=== PATIENT | male | born 1940 | race Caucasian/White ===

== ENCOUNTER → 2017-12-05 10:44 | Outpatient (CLI) | payer OTHER, SELFPAY ==
[2017-12-05 11:59] LABS: Alanine Aminotransferase 32 IU/L (21-72); Albumin 4.1 g/dL (3.5-5.0); Albumin Globulin Ratio 1.7 (1.0-2.8); Alkaline Phosphatase 61 U/L (38-126); Aspartate Aminotransferase 27 IU/L (17-59); Bilirubin Total 0.9 mg/dL (0.2-1.3); Bilirubin Unconjugated 0.8 mg/dL (0.0-1.1); Blood Urea Nitrogen 15 mg/dL (9-20); Calcium 9.7 mg/dL (8.4-10.2); Carbon Dioxide 29 mmol/L (22-32); Chloride 104 mmol/L (98-107); Estimated Glomerular Filt Rate > 60.0 mL/min (>60); Globulin 2.4 g/dL (1.7-4.1); Glucose 120 mg/dL (80-110); HEMOLYSIS < 15 (0-50); Potassium 4.8 mmol/L (3.4-5.1); Sodium 142 mmol/L (137-145); Total Protein 6.5 g/dL (6.3-8.2)
[2017-12-05 12:29] LABS: Thyroid Stimulating Hormone 4.06 uIU/mL (0.47-4.68)
== END ==
PROVIDERS: PCP Internal Medicine; Visit Provider Internal Medicine Cardiovascular Disease
DX: I48.1 Persistent atrial fibrillation (principal)
CPT/HCPCS: 36415; 80053; 80076; 84443

== ENCOUNTER → 2017-12-23 14:31 | Outpatient (CLI) | payer OTHER, SELFPAY ==
[2017-12-23 17:11] LABS: Urine Amphetamines Positive (Negative); Urine Barbiturates Negative (Negative); Urine Benzodiazepines Negative (Negative); Urine Cocaine Negative (Negative); Urine MDMA Negative (Negative); Urine Methadone Negative (Negative); Urine Methamphetamines Negative (Negative); Urine Morphine/Opi cutoff 2000 Negative (Negative); Urine Oxycodone Negative (Negative); Urine Phencyclidine Negative (Negative); Urine Tetrahydrocannabinol Negative (Negative); Urine Tricyclic Antidepressant Negative (Negative)
== END ==
PROVIDERS: PCP Internal Medicine; Visit Provider Psychiatry & Neurology Psychiatry
DX: F32.9 Major depressive disorder, single episode, unspecified (principal); F90.9 Attention-deficit hyperactivity disorder, unspecified type
CPT/HCPCS: 80305

== ENCOUNTER 2018-03-12 08:30 | Outpatient (RCR) | payer OTHER, SELFPAY ==
[2018-02-18 14:53] VITALS: BP 120/70; BP 126/72; BMI 32.1
[2018-03-19 11:47] VITALS: BP 132/64
== END 2018-03-14 11:58 ==
LOC: CAR 08:30
PROVIDERS: PCP Internal Medicine; Visit Provider Internal Medicine
DX: I50.22 Chronic systolic (congestive) heart failure (principal); I48.91 Unspecified atrial fibrillation
CPT/HCPCS: 93798

== ENCOUNTER → 2018-05-21 14:08 | Outpatient (CLI) | payer OTHER, SELFPAY ==
[2018-05-21 15:21] LABS: Alanine Aminotransferase 48 IU/L (21-72); Albumin 4.1 g/dL (3.5-5.0); Alkaline Phosphatase 64 U/L (38-126); Aspartate Aminotransferase 34 IU/L (17-59); BUN Creatinine Ratio 14.5 (6-22); Bilirubin Total 0.5 mg/dL (0.2-1.3); Blood Urea Nitrogen 16 mg/dL (9-20); Calcium 9.2 mg/dL (8.4-10.2); Carbon Dioxide 28 mmol/L (22-32); Chloride 104 mmol/L (98-107); Estimated Glomerular Filt Rate > 60.0 mL/min (>60); Globulin 2.1 g/dL (1.7-4.1); Glucose 113 mg/dL (80-110); HEMOLYSIS < 15 (0-50); Magnesium 1.8 mg/dL (1.6-2.3); Potassium 4.8 mmol/L (3.4-5.1); Sodium 144 mmol/L (137-145); Total Protein 6.2 g/dL (6.3-8.2)
[2018-05-26 08:55] LABS: Lipoprofile NMR SEE SEPERATE REPORT
== END ==
PROVIDERS: Family Provider Internal Medicine; PCP Internal Medicine; Visit Provider Specialist
DX: I42.9 Cardiomyopathy, unspecified (principal); I48.1 Persistent atrial fibrillation; E78.2 Mixed hyperlipidemia
CPT/HCPCS: 36415; 80053; 83704; 83735

== ENCOUNTER → 2018-08-25 14:34 | Outpatient (CLI) | payer OTHER, SELFPAY ==
[2018-08-25 16:33] LABS: Vitamin B12 419 pg/mL (239-931)
[2018-08-25 16:53] LABS: Thyroid Stimulating Hormone 5.88 uIU/mL (0.47-4.68)
== END ==
PROVIDERS: PCP Internal Medicine; Visit Provider Internal Medicine
DX: E03.9 Hypothyroidism, unspecified (principal); E53.8 Deficiency of other specified B group vitamins
CPT/HCPCS: 36415; 82607; 84443

== ENCOUNTER → 2018-09-26 15:31 | Outpatient (CLI) | payer OTHER, SELFPAY ==
[2018-09-26 18:15] LABS: Alanine Aminotransferase 50 IU/L (21-72); Albumin Globulin Ratio 1.8 (1.0-2.8); Alkaline Phosphatase 56 U/L (38-126); Aspartate Aminotransferase 39 IU/L (17-59); Bilirubin Total 0.7 mg/dL (0.2-1.3); Bilirubin Unconjugated 0.5 mg/dL (0.0-1.1); Blood Urea Nitrogen 18 mg/dL (9-20); Calcium 8.7 mg/dL (8.4-10.2); Carbon Dioxide 25 mmol/L (22-32); Chloride 106 mmol/L (98-107); Estimated Glomerular Filt Rate > 60.0 mL/min (>60); Globulin 2.2 g/dL (1.7-4.1); Glucose 89 mg/dL (80-110); HEMOLYSIS < 15 (0-50); Potassium 4.6 mmol/L (3.4-5.1); Sodium 140 mmol/L (137-145); Total Protein 6.2 g/dL (6.3-8.2)
[2018-09-26 18:47] LABS: Thyroid Stimulating Hormone 5.33 uIU/mL (0.47-4.68)
== END ==
PROVIDERS: PCP Internal Medicine; Visit Provider Physician Assistant
DX: I48.1 Persistent atrial fibrillation (principal)
CPT/HCPCS: 36415; 80053; 80076; 84443

== ENCOUNTER → 2018-10-02 09:13 | Outpatient (CLI) | payer OTHER, SELFPAY ==
--- NOTE | 2018-10-02 | DI.ECHO.S_ITS ---
[facility] +---------+ [facility] +---------+ : : [address] : : : [place], [place] : : : : [id number] : : : : Phone: [phone]+ Echocardiogram Report + + :Name: ROSEANN PATTERSON Study Date: 10/02/2018 Height: 71 in : :[facility] Exam Location: [facility] Weight: 240 lb : : Gender: Male BSA: 2.3 m2 : :: 1940 Age: 77 yrs BP: 115/58 mmHg: :Reason For Study: CM : : Performed By: Sergio Golden : :Referring: NILDA HERRERA : + + Interpretation Summary Left ventricular systolic function is moderate to severely reduced with the ejection fraction estimated to be 30-35% with moderate global hypokinesis that appears somewhat worse apically with severe hypokinesis, which is more prominent compared to the previous study but overall systolic function appears quite similar. There are no other obvious focal wall motion abnormalities. The left ventricle is mild-moderately dilated and measures slightly larger compared to the previous study. Diastolic parameters suggest a pseudonormalization pattern, consistent with probable elevated filling pressures. The right ventricle is mildly dilated and right ventricular systolic function is normal and appears unchanged compared to the previous study. The right ventricular systolic pressure is estimated to be at least 26 mmHg based on an estimated right atrial pressure of 3 mm Hg, and is unchanged compared to the previous study. The left atrium is severely dilatedi but s unchanged compared to the previous study. The right atrium is mildly dilated and has significantly decreased in size since the prior echo exam. There is moderate mitral regurgitation that is slightly more prominent compared to the previous study. There is mild tricuspid regurgitation and mild aortic regurgitation that are unchanged compared to the previous study. The aortic root and ascending aorta are moderately enlarged and the aortic arch is mildly enlarged but all are unchanged compared to the previous study. Procedure: A two-dimensional transthoracic echocardiogram with color flow and Doppler was performed. The study quality was technically good. Comparison is made with the echocardiogram of 08/08/17. The patient has a paced rhythm. Left Ventricle: There is normal left ventricular wall thickness. The left ventricle is mild-moderately dilated. This is slightly larger compared to the previous study. Left ventricular systolic function is moderate to severely reduced. The ejection fraction is estimated to be 30-35%. There is moderate global hypokinesis of the left ventricle. But appears somewhat worse apically with her severe hypokinesis, which is more prominent compared to the previous study but overall systolic function appears quite similar. There are no other obvious focal wall motion abnormalities. Diastolic parameters suggest a pseudonormalization pattern, consistent with probable elevated filling pressures. Right Ventricle: The right ventricle is mildly dilated. There is a pacemaker lead in the right ventricle. This is new compared to the previous study. The right ventricular systolic function is normal. This is unchanged compared to the previous study. Atria: The left atrium is severely dilated. This is unchanged compared to the previous study. The right atrium is mildly dilated. The right atrium has significantly decreased in size since the prior echo exam. The interatrial septum is intact with no evidence for an atrial septal defect. Mitral Valve: The mitral valve leaflets appear normal. There is no evidence of stenosis, fluttering, or prolapse. There is moderate mitral regurgitation. This is slightly more prominent compared to the previous study. Aortic Valve: The aortic valve is trileaflet. The aortic valve is slightly calcified. The aortic valve opens well. There is mild aortic regurgitation. This is unchanged compared to the previous study. Tricuspid Valve: The tricuspid valve is normal in structure and function. There is mild tricuspid regurgitation. The right ventricular systolic pressure is estimated to be at least 26 mmHg based on an estimated right atrial pressure of 3 mm Hg. This is unchanged compared to the previous study. Pulmonic Valve: The pulmonic valve is normal in structure and function. There is trace pulmonic regurgitation. Great Vessels: The aortic root is moderately dilated. The ascending aorta is moderately enlarged. The aortic arch is mildly enlarged. This is unchanged compared to the previous study. The pulmonary artery is normal size. The IVC is of normal diameter and collapses greater than 50% with a sniff. This suggests a low right atrial pressure of 3 mm Hg. Pericardium/ Pleura There is no pericardial effusion. There is no pleural effusion. MMode/2D Measurements & Calculations LVIDd: 6.5 cm LVOT diam: 2.7 cm LVIDs: 5.1 cm Ao root diam: 4.6 cm FS: 22.2 % Aortic Jxn: 3.4 cm EPSS: 1.7 cm asc Aorta Diam: 4.1 cm IVSd: 0.99 cm Ao Arch Diam (Prox Trans): 3.2 cm LVPWd: 0.84 cm LV pleitez. diameter/BSA (cm/m^2): 2.9 LV sys. diameter/BSA (cm/m^2): 2.2 LA dimension: 4.5 cm RA long axis: 5.5 cm LA A2 area: 33.9 cm2 RA area: 24.0 cm2 LA A4 area: 24.9 cm2 RA vol: 88.3 ml LA length (vol): 5.9 cm RA : 38.7 ml/m2 LA vol: 120.7 ml IVC diam: 2.1 cm LA vol index: 53.0 ml/m2 RVD1 (basal): 4.9 cm RVD2 (mid): 4.8 cm Doppler Measurements & Calculations Ao V2 max: 102.1 cm/sec LVOT Max Hemanth: 49.2 cm/sec Ao V2 mean: 83.3 cm/sec LV V1 max P.97 mmHg Ao max P.2 mmHg LV V1 VTI: 13.8 cm Ao mean P.9 mmHg GARRICK(I,D): 2.9 cm2 Ao V2 VTI: 27.7 cm GARRICK(V,D): 2.8 cm2 sev ratio: 0.50 GARRICK indexed to BSA (cm^2/m^2): 1.3 AI P1/2t: 582.6 msec AI dec slope: 108.6 cm/sec2 MV E max hemanth: 59.1 cm/sec TR max hemanth: 238.8 cm/sec MV A max hemanth: 65.7 cm/sec TR max P.8 mmHg MV E/A: 0.90 PA V2 max: 64.5 cm/sec Med Peak E' Hemanth: 3.6 cm/sec PA V2 mean: 50.8 cm/sec E/E' med: 16.4 PA mean P.1 mmHg Lat Peak E' Hemanth: 4.3 cm/sec PA pr(Accel): 31.6 mmHg E/E' lat: 13.6 PA Accel Time: 0.10 sec E/e' average: 15.0 MV dec time: 0.21 sec SV(LVOT): 79.3 ml Reading Physician:ARIEL
== END ==
PROVIDERS: PCP Internal Medicine; Visit Provider Specialist
DX: I08.3 Combined rheumatic disorders of mitral, aortic and tricuspid valves (principal); I42.9 Cardiomyopathy, unspecified; I77.89 Other specified disorders of arteries and arterioles; Z95.0 Presence of cardiac pacemaker
CPT/HCPCS: 93306

== ENCOUNTER → 2019-03-13 14:44 | Outpatient (CLI) | payer OTHER, SELFPAY ==
[2019-03-13 16:12] LABS: TSH w/ Reflex to FT4 1.75 uIU/mL (0.47-4.68)
[2019-03-13 16:31] LABS: Vitamin B12 648 pg/mL (239-931)
== END ==
PROVIDERS: PCP Internal Medicine; Visit Provider Internal Medicine
DX: D51.0 Vitamin B12 deficiency anemia due to intrinsic factor deficiency (principal); E03.9 Hypothyroidism, unspecified
CPT/HCPCS: 36415; 82607; 84443

== ENCOUNTER → 2019-07-16 18:55 | Outpatient (ROUT) | payer MEDICARE, SELFPAY ==
[2019-07-16 19:23] LABS: Hematocrit 37.9 % (41-53); Hemoglobin 13.1 g/dL (13.5-17.5); Mean Corpuscular HGB Conc 34.6 % (30-36); Mean Corpuscular Hemoglobin 32.7 PG (26-34); Mean Corpuscular Volume 94.3 fL (80-100); Platelet Count 187 X10^3/uL (150-400); Red Blood Cell Count 4.01 X10^6/uL (4.5-5.9); Red Cell Distribution Width 14.2 % (11.6-14.8); White Blood Cell Count 4.7 X10^3/uL (4.5-11.0)
[2019-07-16 20:02] LABS: TSH w/ Reflex to FT4 0.59 uIU/mL (0.47-4.68)
[2019-07-16 20:22] LABS: Vitamin B12 537 pg/mL (239-931)
== END ==
PROVIDERS: PCP Internal Medicine; Visit Provider Internal Medicine
DX: R53.82 Chronic fatigue, unspecified (principal); D51.0 Vitamin B12 deficiency anemia due to intrinsic factor deficiency; E03.9 Hypothyroidism, unspecified
CPT/HCPCS: 82607; 84443; 85027

== ENCOUNTER → 2020-04-01 12:38 | Outpatient (CLI) | payer MEDICARE, SELFPAY ==
[2020-04-01 13:43] LABS: Add Manual Diff / Slide Review NO; Basophils Absolute Auto 0 /uL (0-100); Basophils Percent Auto 0.7 % (0-2); Eosinophils Absolute Auto 300 /uL (0-450); Eosinophils Percent Auto 6.6 % (2-4); Hematocrit 37.6 % (41-53); Hemoglobin 12.7 g/dL (13.5-17.5); Lymphocytes Absolute Auto 1200 /uL (1100-4500); Lymphocytes Percent Auto 27.7 % (25-40); Mean Corpuscular HGB Conc 33.8 % (30-36); Mean Corpuscular Hemoglobin 32.7 PG (26-34); Mean Corpuscular Volume 96.9 fL (80-100); Monocytes Absolute Auto 300 /uL (0-900); Monocytes Percent Auto 7.1 % (3-14); Neutrophils Absolute Auto 2500 /uL (1500-7000); Neutrophils Percent Auto 57.9 % (50-75); Platelet Count 188 X10^3/uL (150-400); Red Blood Cell Count 3.88 X10^6/uL (4.5-5.9); Red Cell Distribution Width 13.5 % (11.6-14.8); White Blood Cell Count 4.3 X10^3/uL (4.5-11.0)
[2020-04-01 14:14] LABS: Alanine Aminotransferase 53 IU/L (<50); Albumin 4.3 g/dL (3.5-5.0); Albumin Globulin Ratio 1.5 (1.0-2.8); Alkaline Phosphatase 65 U/L (38-126); Aspartate Aminotransferase 49 IU/L (17-59); Bilirubin Total 0.8 mg/dL (0.2-1.3); Blood Urea Nitrogen 15 mg/dL (9-20); Calcium 9.5 mg/dL (8.4-10.2); Carbon Dioxide 31 mmol/L (22-32); Chloride 106 mmol/L (98-107); Cholesterol 175 mg/dL (140-199); Estimated Glomerular Filt Rate > 60.0 mL/min (>60); Globulin 2.8 g/dL (1.7-4.1); Glucose 95 mg/dL (80-110); HDL Cholesterol 33 mg/dL (40-60); HEMOLYSIS < 15 (0-50); LDL Cholesterol Calculated 97 mg/dL (<100); Potassium 4.5 mmol/L (3.4-5.1); Sodium 141 mmol/L (137-145); Total Protein 7.1 g/dL (6.3-8.2); Triglycerides 226 mg/dL (35-150)
[2020-04-01 14:44] LABS: TSH w/ Reflex to FT4 3.76 uIU/mL (0.47-4.68)
[2020-04-01 15:01] LABS: Vitamin B12 427 pg/mL (239-931)
== END ==
PROVIDERS: PCP Internal Medicine; Referring Provider Internal Medicine; Visit Provider Internal Medicine
DX: R53.83 Other fatigue (principal); I50.22 Chronic systolic (congestive) heart failure; E78.5 Hyperlipidemia, unspecified; D51.0 Vitamin B12 deficiency anemia due to intrinsic factor deficiency; E03.9 Hypothyroidism, unspecified
CPT/HCPCS: 36415; 80053; 80061; 82607; 84443; 85025

== ENCOUNTER → 2020-09-27 19:33 | Outpatient (ROUT) | payer OTHER, SELFPAY ==
[2020-09-27 20:09] LABS: Add Manual Diff / Slide Review NO; Basophils Absolute Auto 0 /uL (0-100); Basophils Percent Auto 0.7 % (0-2); Eosinophils Absolute Auto 200 /uL (0-450); Eosinophils Percent Auto 4.4 % (2-4); Hematocrit 36.4 % (41-53); Hemoglobin 12.4 g/dL (13.5-17.5); Lymphocytes Absolute Auto 1200 /uL (1100-4500); Lymphocytes Percent Auto 25.5 % (25-40); Mean Corpuscular Hemoglobin 32.6 PG (26-34); Mean Corpuscular Volume 95.9 fL (80-100); Monocytes Absolute Auto 300 /uL (0-900); Monocytes Percent Auto 6.7 % (3-14); Neutrophils Absolute Auto 3000 /uL (1500-7000); Neutrophils Percent Auto 62.7 % (50-75); Platelet Count 196 X10^3/uL (150-400); Red Blood Cell Count 3.79 X10^6/uL (4.5-5.9); Red Cell Distribution Width 13.6 % (11.6-14.8); White Blood Cell Count 4.7 X10^3/uL (4.5-11.0)
[2020-09-27 20:19] LABS: Alanine Aminotransferase 58 IU/L (<50); Albumin 4.2 g/dL (3.5-5.0); Albumin Globulin Ratio 1.2 (1.0-2.8); Alkaline Phosphatase 73 U/L (38-126); Aspartate Aminotransferase 49 IU/L (17-59); BUN Creatinine Ratio 18.3 (6-22); Bilirubin Total 0.3 mg/dL (0.2-1.3); Blood Urea Nitrogen 17 mg/dL (9-20); Calcium 9.6 mg/dL (8.4-10.2); Carbon Dioxide 25 mmol/L (22-32); Chloride 105 mmol/L (98-107); Estimated Glomerular Filt Rate > 60.0 mL/min (>60); Globulin 3.4 g/dL (1.7-4.1); Glucose 120 mg/dL (80-110); HEMOLYSIS < 15 (0-50); Potassium 4.2 mmol/L (3.4-5.1); Sodium 141 mmol/L (137-145); Total Protein 7.6 g/dL (6.3-8.2)
[2020-09-27 20:48] LABS: TSH w/ Reflex to FT4 0.99 uIU/mL (0.47-4.68)
[2020-09-27 21:06] LABS: Vitamin B12 970 pg/mL (239-931)
== END ==
PROVIDERS: PCP Internal Medicine; Visit Provider Internal Medicine
DX: D51.0 Vitamin B12 deficiency anemia due to intrinsic factor deficiency (principal); I50.22 Chronic systolic (congestive) heart failure; E03.9 Hypothyroidism, unspecified
CPT/HCPCS: 80053; 82607; 84443; 85025

== ENCOUNTER → 2020-10-20 13:26 | Outpatient (CLI) | payer OTHER, SELFPAY ==
--- NOTE | 2020-10-20 | DI.ECHO.S_ITS ---
[facility] +---------+ [facility] +---------+ : : [address] : : : : [place] : : : : [id number] : : : : Phone: [phone]+ Echocardiogram Report + + :Name: ROSEANN PATTERSON Study Date: 10/20/2020 Height: 72 in : :[facility] ReadingLocation: Weight: 240 lb : : Gender: Male BSA: 2.3 m2 : :: 1940 Age: 79 yrs BP: 152/86 mmHg: :Reason For Study: Congestive Heart Failure : :Ordering Physician: VASYL, : :TATY Performed By: Gordy Chau : :Referring: TATY FALLON : + + Interpretation Summary Normal sinus rhythm. Normal LV size and wall thickness; low normal EF estimated at 50-55%. Normal chamber sizes. No significant valvular abnormalities. There is a pacing lead traversing the tricuspid valve. Estimated PA systolic pressure is 38 mm Hg. Compared to prior study 10/02/2018 LV end diastolic dimension is down from 6.5 cm to 5.9 cm. LV function is more dynamic. EF is up from 35% to 50-55%. LA is no longer severely dilated. Procedure: A two-dimensional transthoracic echocardiogram with color flow and Doppler was performed. The study quality was technically adequate. Comparison is made with the echocardiogram of 10/02/2018. The patient was in sinus rhythm with heart rates between 60-64 bpm during the exam. Left Ventricle: The left ventricle is normal in size and wall thickness. Left ventricular systolic function is mildly reduced. The ejection fraction is estimated to be 50-55%. There is mild global hypokinesis of the left ventricle. Diastolic parameters suggest a relaxation abnormality of the left ventricle, consistent with probable normal filling pressures. Right Ventricle: The right ventricle is normal in size and function. Atria: Both atria are normal in size. There is no Doppler evidence for an interatrial shunt. Mitral Valve: The mitral valve is normal in structure and function. There is mild mitral regurgitation. Aortic Valve: The aortic valve is normal in structure and function. There is mild aortic regurgitation. Tricuspid Valve: The tricuspid valve is normal in structure and function. There is mild tricuspid regurgitation. The right ventricular systolic pressure is estimated to be at least 38 mmHg based on an estimated right atrial pressure of 3 mm Hg. Pulmonic Valve: The pulmonic valve is not well seen, but is grossly normal. Great Vessels: The aortic root is mildly dilated. The ascending aorta is mildly enlarged. The IVC is of normal diameter and collapses greater than 50% with a sniff. This suggests a low right atrial pressure of 3 mm Hg. Pericardium/ Pleura There is no pericardial effusion. There is no pleural effusion. MMode/2D Measurements & Calculations LVIDd: 5.7 cm LVOT diam: 2.5 cm LVIDs: 3.9 cm Ao root diam: 4.2 cm FS: 32.6 % asc Aorta Diam: 3.7 cm IVSd: 1.1 cm LVPWd: 0.83 cm LV pleitez. diameter/BSA (cm/m^2): 2.5 LV sys. diameter/BSA (cm/m^2): 1.7 LA A2 area: 20.2 cm2 RA area: 14.2 cm2 LA A4 area: 14.0 cm2 LA length (vol): 4.7 cm LA vol: 50.7 ml LA vol index: 22.0 ml/m2 TAPSE: 2.7 cm Doppler Measurements & Calculations Ao V2 max: 116.2 cm/sec LVOT Max Hemanth: 73.2 cm/sec Ao V2 mean: 86.9 cm/sec LV V1 max P.1 mmHg Ao max P.4 mmHg LV V1 VTI: 18.2 cm Ao mean P.3 mmHg GARRICK(I,D): 3.4 cm2 Ao V2 VTI: 26.9 cm GARRICK(V,D): 3.1 cm2 sev ratio: 0.68 GARRICK indexed to BSA (cm^2/m^2): 1.5 MV E max hemanth: 52.0 cm/sec TR max hemanth: 297.3 cm/sec MV A max hemanth: 86.8 cm/sec TR max P.3 mmHg MV E/A: 0.60 PA V2 max: 101.5 cm/sec Med Peak E' Hemanth: 4.6 cm/sec PA V2 mean: 69.6 cm/sec E/E' med: 11.2 PA mean P.1 mmHg Lat Peak E' Hemanth: 7.6 cm/sec PA pr(Accel): 32.3 mmHg E/E' lat: 6.9 E/e' average: 9.0 MV dec time: 0.38 sec SV(LVOT): 90.4 ml Electronically signed by: Amanda Ash M.D. on Reading Physician:10/21/2020 02:00 AM
== END ==
LOC: ECHO 13:27
PROVIDERS: PCP Internal Medicine; Referring Provider Internal Medicine; Visit Provider Internal Medicine
DX: I08.3 Combined rheumatic disorders of mitral, aortic and tricuspid valves (principal); I77.810 Thoracic aortic ectasia; I50.22 Chronic systolic (congestive) heart failure
CPT/HCPCS: 93306

== ENCOUNTER → 2022-01-02 16:13 | Outpatient (CLI) | payer OTHER, SELFPAY ==
--- NOTE | 2022-01-02 16:17 | DI.RAD.S_ITS ---
PROCEDURE: XR CHEST 2V INDICATIONS: Dyspnea, unspecified TECHNIQUE: 2 views of the chest were acquired. COMPARISON: [facility], CR, CHEST 2 VIEW, 07/28/2007, 10:19. [facility], CR, XR CHEST 2 VIEWS, 11/13/2017, 6:55. FINDINGS: Surgical changes and devices: Stable positioning of left chest AICD. Lungs and pleura: Lungs are clear. No pleural effusions or pneumothorax. Mediastinum: Mediastinal contours are normal. Heart size is enlarged. Bones and chest wall: No suspicious bony abnormalities. Soft tissues appear unremarkable. IMPRESSION: No acute cardiopulmonary disease. Dictated by: Chuck AGUILERA Interpreted: Timoteo Chambers MD on 01/02/2022 at 16:53 Transcribed by: TUCKER on 01/02/2022 at 16:54 Approved by: Timoteo Chambers M.D. on 01/02/2022 at 17:21
== END ==
PROVIDERS: PCP Internal Medicine; Referring Provider Internal Medicine; Visit Provider Internal Medicine
DX: R06.00 Dyspnea, unspecified (principal)
CPT/HCPCS: 71046

== ENCOUNTER 2022-08-28 01:14 | Emergency (ER) | payer OTHER, SELFPAY ==
[2022-08-28 01:35] VITALS: BP 136/63; PULSE 72; RESP 16; TEMP 36.5; O2SAT 97; BMI 31.8
--- NOTE | 2022-08-28 02:02 | ED_ITS ---
HPI - Back Pain/Injury General Chief Complaint: Back Pain/Injury Stated Complaint: BACK PAIN, RT KNEE PAIN Time Seen by Provider: 08/28/22 01:44 Source: patient Mode of arrival: Ambulatory Limitations: no limitations History of Present Illness HPI Narrative: Patient is an 81-year-old male who is here for evaluation of right knee pain and also right mid back pain. He is had the right knee pain for many weeks/month or longer. He did see his primary doctor about this but is not on any medications. He a couple days later he started to have right mid back pain. No specific trauma. Yesterday he saw a chiropractor about the back pain and had an adjustment however he thinks the chiropractor made things worse. Has not tried anything for symptoms. The discomfort in his back is worse with palpation. There is no skin changes over the area. He has pain to the outside of the right leg he states only hurts when he is walking although does have some throbbing at night. Related Data Home Medications Medication Instructions Recorded Confirmed beclomethasone dipropionate 80 0.08 mg ##0 03/28/11 mcg/actuation aerosol inhaler (Qvar) Syringes: 3ml Luer-Juan Syringe 25g ##0 03/06/12 x 1 Previous Rx's Medication Instructions Recorded cyclobenzaprine 10 mg tablet 10 mg PO TID PRN muscle spasm #14 08/28/22 tabs hydrocodone 5 mg-acetaminophen 325 1 tab PO Q4-6H PRN pain #10 tabs 08/28/22 mg tablet Allergies Allergy/AdvReac Type Severity Reaction Status Date / Time Sulfa (Sulfonamide Allergy Severe HIVES, Verified 08/28/22 02:16 Antibiotics) BREATHING PROBLEMS prednisone Allergy Unknown UNKNOWN Verified 08/28/22 02:16 Review of Systems Constitutional Constitutional: Reports system reviewed and no additional complaints, except as documented Musculoskeletal Musculoskeletal: Reports system reviewed and no additional complaints, except as documented Integumentary/Breasts Skin/Breast: Reports system reviewed and no additional complaints, except as documented Neurologic Neurologic: Reports system reviewed and no additional complaints, except as documented Patient History Social History Smoking Status: Never smoker Smoking Status: Never smoker alcohol intake frequency: a few times a week Alcohol type: beer Substance Use Type: does not use Exam Initial Vital Signs Initial Vital Signs: Vital Signs Temperature 97.7 F 08/28/22 01:35 Pulse Rate 72 08/28/22 01:35 Respiratory Rate 16 08/28/22 01:35 Blood Pressure 136/63 08/28/22 01:35 Pulse Oximetry 97 08/28/22 01:35 Oxygen Delivery Method Room Air 08/28/22 01:35 Const General: cooperative and No ill appearing HENMT Head: normal to inspection and normocephalic Back/Spine/Pelvis Other: He does have fairly pinpoint tenderness to palpation at the midthoracic region bright paraspinal. There is fullness of the muscle at this area which is where he is having discomfort. Moving superior inferior and lateral to this area actually has improvement of any discomfort. Skin General: no rashes or lesions noted Extrem Other: No specific tenderness to palpation of his right knee.. His quadriceps and patellar tendon are intact. He is ambulatory. No swelling of his right knee. Course Orders Ordered: Discontinued Medications Hydrocodone Bitart/Acetaminophen (Hydrocodone/Acet 5/325 Prepack) 1 bottle MISC SEEINSTR ONE Stop: 08/28/22 02:03 Cyclobenzaprine HCl (Cyclobenzaprine 10 Mg Prepack) 1 bottle MISC SEEINSTR ONE Stop: 08/28/22 02:03 Vital Signs Vital signs: Vital Signs - 8 hr 08/28/22 01:35 Temperature 97.7 F Pulse Rate 72 Respiratory Rate 16 Blood Pressure 136/63 Pulse Oximetry 97 Oxygen Delivery Method Room Air MDM - Back Pain/Injury MDM Narrative Medical decision making narrative: I have low suspicion for fractures. No indication for radiologic studies. He has reproducible tenderness to palpation of the right-sided paraspinal muscle the thoracic region. Skin changes over the area. This is very consistent with a muscle spasm. I suspect that his right knee pain is arthritis. Plan to be is to discharge him home with muscle relaxers and pain medication. We did discuss that both of these medications can cause him to become drowsy. He needs to follow up with his primary doctor as he may need to see Orthopedics about his right knee pain. We discussed other conservative measures to include massage and heat and ice. He was given return precautions. He expressed understanding and agreement. Discharge Plan Departure Patient Disposition: Home Clinical Impression: Acute mid back pain, Chronic knee pain Instructions: DI for Back Spasm, DI for Arthritis Activity Restrictions/Additional Instructions: I do recommend that you contact your primary doctor for follow-up as you may nee d to see orthopedic surgery for your right knee discomfort. Take medications as directed. Remember these medications can make you drowsy. Return to the emergency department for new symptoms. Prescriptions: New cyclobenzaprine 10 mg tablet 10 mg PO TID PRN (Reason: muscle spasm) Qty: 14 0RF hydrocodone-acetaminophen 5-325 mg tablet 1 tab PO Q4-6H PRN (Reason: pain) Qty: 10 0RF No Action beclomethasone dipropionate [Qvar] 80 MCG/PUFF aerosol 0.08 mg IH Qty: 0 Syringes: 3ml Luer-Juan Syringe 25g x 1 Qty: 0 Stand Alone Forms: Patient Portal/API
[2022-08-28] MEDS: CYCLOBENZAPRINE 10 MG PREPACK 1 BOTTLE MISC (02:51)
[2022-08-28] MEDS: OXYCODONE/APAP 5/325 PREPACK 1 BOTTLE MISC (02:51)
== END 2022-08-28 02:58 | disposition home or self-care (01) ==
PROVIDERS: Emergency Provider Emergency Medicine
DX: M54.6 Pain in thoracic spine (principal); M25.561 Pain in right knee; G89.29 Other chronic pain
CPT/HCPCS: 99281; 99282

== ENCOUNTER 2022-09-04 20:58 | Emergency (ER) | payer OTHER, SELFPAY ==
[2022-09-04] VITALS (14 sets, daily range): BP systolic 111–160; BP diastolic 61–77; PULSE 58–61; RESP 18; TEMP 36.1; O2SAT 92–98; BMI 31.7
--- NOTE | 2022-09-04 21:07 | DI.RAD.S_ITS ---
PROCEDURE: XR FEMUR RT 1V INDICATIONS: trauma TECHNIQUE: Two AP views of the femur were acquired. COMPARISON: [facility], , XR PELVIS 1-2V, 09/04/2022, 20:49. FINDINGS: Bones: There is a transverse fracture in the distal femoral shaft with associated medial displacement by approximately 1 shaft width. Soft tissues: No suspicious soft tissue calcifications or masses. IMPRESSION: 1. Fracture of the distal right femur. Dictated by: Won Live M.D. on 09/04/2022 at 22:06 Approved by: Won Live M.D. on 09/04/2022 at 22:07
--- NOTE | 2022-09-04 21:07 | DI.RAD.S_ITS ---
PROCEDURE: XR CHEST 1V INDICATIONS: trauma TECHNIQUE: One view of the chest was acquired. COMPARISON: [facility], CR, XR CHEST 2V, 01/02/2022, 16:39. FINDINGS: Evaluation is limited by patient rotation and technique. Surgical changes and devices: None. Lungs and pleura: No definite acute airspace opacities. No pleural effusions or pneumothorax. Mediastinum: Mediastinal contours appear normal given rotation. Heart size is normal. Bones and chest wall: No suspicious bony lesions. Overlying soft tissues appear unremarkable. IMPRESSION: 1. Limited study demonstrates no definite acute cardiopulmonary disease. Dictated by: Won Live M.D. on 09/04/2022 at 22:04 Approved by: Won Live M.D. on 09/04/2022 at 22:05
--- NOTE | 2022-09-04 21:07 | DI.RAD.S_ITS ---
PROCEDURE: XR ANKLE RT 2V INDICATIONS: trauma TECHNIQUE: 3 views of the ankle were acquired. COMPARISON: [facility], , XR ANKLE 3V RIGHT, 05/10/2004, 12:42. FINDINGS: Bones: Three views of the lower leg demonstrate deformity of the distal fibula consistent with sequelae of an old chronic fracture. No dislocations. Soft tissues: No suspicious soft tissue calcifications IMPRESSION: 1. Limited study of the lower leg demonstrates deformity of the distal fibula consistent with sequelae of an old fracture. Dictated by: Won Live M.D. on 09/04/2022 at 22:07 Approved by: Won Live M.D. on 09/04/2022 at 22:10
--- NOTE | 2022-09-04 21:07 | DI.RAD.S_ITS ---
PROCEDURE: XR PELVIS 1-2V INDICATIONS: trauma TECHNIQUE: Two views of the pelvis acquired. COMPARISON: None. FINDINGS: Bones: No definite fractures or dislocations. No suspicious bony lesions. Soft tissues: Visualized bowel gas pattern is normal. No suspicious soft tissue calcifications. IMPRESSION: 1. No definite fracture or dislocation. Dictated by: Won Live M.D. on 09/04/2022 at 22:05 Approved by: Won Live M.D. on 09/04/2022 at 22:06
--- NOTE | 2022-09-04 21:14 | ED_ITS ---
HPI - General Adult General Chief complaint: Trauma Stated complaint: GLF Time Seen by Provider: 09/04/22 21:00 Source: EMS Mode of arrival: EMS History of Present Illness HPI narrative: 81-year-old gentleman currently anticoagulated on Coumadin for history of atrial fibrillation with a pacemaker in place brought in by medics after a mechanical fall. Was walking out of his bathroom, stumbled on a rug and fell on his right leg. Right leg has significant deformity but is neurovascularly intact. Was given 25 mg of IV ketamine and 100 mcg of fentanyl with leg immobilized prior to transport. He reports no recent fever, cough, chills. He states he has been in his usual state of good health. No palpitations, orthopnea, dyspnea, headaches. He absolutely denies hitting his head is not complaining of any pain beyond his right lower extremity. Related Data Home Medications Medication Instructions Recorded Confirmed beclomethasone dipropionate 80 0.08 mg IH ##0 03/28/11 mcg/actuation aerosol inhaler (Qvar) Syringes: 3ml Luer-Juan Syringe 25g ##0 03/06/12 x 1 Previous Rx's Medication Instructions Recorded cyclobenzaprine 10 mg tablet 10 mg PO TID PRN muscle spasm #14 08/28/22 tabs hydrocodone 5 mg-acetaminophen 325 1 tab PO Q4-6H PRN pain #10 tabs 08/28/22 mg tablet Allergies Allergy/AdvReac Type Severity Reaction Status Date / Time Sulfa (Sulfonamide Allergy Severe HIVES, Verified 08/28/22 02:16 Antibiotics) BREATHING PROBLEMS prednisone Allergy Unknown UNKNOWN Verified 08/28/22 02:16 Review of Systems Review of Systems Narrative: Pertinent positive and negative findings as per HPI Patient History Medical History Atrial fibrillation BPH (benign prostatic hyperplasia) Hyperlipidemia Hypothyroidism (acquired) Pacemaker Social History Smoking Status: Never smoker Smoking Status: Never smoker alcohol intake frequency: a few times a week Alcohol type: beer Substance Use Type: does not use Exam Initial Vital Signs Initial Vital Signs: Vital Signs Temperature 97 F L 09/04/22 20:55 Pulse Rate 60 09/04/22 20:55 Respiratory Rate 18 09/04/22 20:55 Blood Pressure 145/75 H 09/04/22 20:55 Pulse Oximetry 98 09/04/22 20:55 Oxygen Delivery Method Room Air 09/04/22 20:55 General: Older-appearing gentleman in obvious pain alert and able to participate in history brought in by medics HEENT: Atraumatic, normocephalic. Moist mucous membranes, normal sclera with reactive pupils, Neck: No JVD, supple, no midline cervical spine tenderness Respiratory: Lungs are clear to auscultation, no wheezing no rales no rhonchi. Full and symmetrical air movement Chest: No tenderness to palpation over the chest, no abrasions or contusions no subcutaneous emphysema Cardiac: Regular rate and rhythm no murmurs no bruits Abdomen: Soft, nontender, good bowel tones, no flank pain. There is no tenderness with pelvic ring manipulation Spine: No tenderness to palpation from upper thoracic through to the sacrum Skin: Pale, mildly diaphoretic, no rashes. Neurologic: Grossly neurologically intact with no obvious asymmetries or abnormalities Extremities: No obvious trauma to upper extremities or left lower extremity. Right lower extremity with obvious deformity above the knee internal rotation of the lower leg with the kneecap pointing medially. No significant hematomas appreciated. Minor swelling noted over the distal femur. He is neurovascularly intact in the right foot. Psych: Cooperative, appropriate insight and affect Course Orders Ordered: ED Orders 09/04/22 21:03 COVID19 -Nasal RAPID Stat Complete Blood Count AUTO DIFF Stat Comprehensive Metabolic Panel Stat Ethanol (ETOH) Stat Prothrombin Time INR Stat Troponin I Stat 09/04/22 21:07 XR ankle RT 2V Stat XR chest 1V Stat XR femur RT 1V Stat XR pelvis 1-2V Stat 09/04/22 21:25 Hemoglobin and Hematocrit Stat Packed Cells Stat Type and Screen Stat Hydromorphone HCl (Hydromorphone 0.5 Mg Inj) 0.5 mg IV Q15MIN PRN PRN Reason: Pain, Last Admin: 09/04/22 22:07 Dose: 0.5 mg Documented By: Admin: 09/04/22 21:34 Dose: 0.5 mg Documented By: Admin: 09/04/22 21:21 Dose: 0.5 mg Documented By: OSITO Discontinued Medications Prothrombin Complex Concent ( Human) 5,000 unit/Miscellaneous 200 mls @ 764.215 mls/hr IV NOW ONE; Protocol Stop: 09/04/22 21:45 Last Infusion: 09/04/22 22:30 Dose: 0 unit/kg/min, 0 mls/hr Documented By: Admin: 09/04/22 22:17 Dose: 3 unit/kg/min, 764.215 mls/hr Documented By: OSITO Ondansetron HCl (Ondansetron 4 Mg/2 Ml Inj) 4 mg IV NOW ONE Stop: 09/04/22 22:32 Last Admin: 09/04/22 22:37 Dose: 4 mg Documented By: OSITO Phytonadione (Phytonadione (Vit K1) 5 Mg Tablet) 10 mg PO NOW ONE Stop: 09/04/22 21:28 Last Admin: 09/04/22 21:43 Dose: 10 mg Documented By: OSITO Vital Signs Vital signs: Vital Signs - 8 hr 09/04/22 20:55 09/04/22 21:08 09/04/22 21:04 Temperature 97 F L Pulse Rate 60 Respiratory Rate 18 Blood Pressure 145/75 H 160/77 H 145/75 H Pulse Oximetry 98 92 Oxygen Delivery Method Room Air Room Air 09/04/22 21:04 09/04/22 21:30 09/04/22 21:30 Temperature Pulse Rate 60 59 L Respiratory Rate Blood Pressure 118/65 Pulse Oximetry 97 97 Oxygen Delivery Method Room Air 09/04/22 21:34 09/04/22 21:34 09/04/22 21:35 Temperature Pulse Rate 59 L Respiratory Rate Blood Pressure 119/63 114/62 Pulse Oximetry 97 Oxygen Delivery Method 09/04/22 21:35 09/04/22 21:40 09/04/22 21:40 Temperature Pulse Rate 59 L 61 Respiratory Rate Blood Pressure 111/62 Pulse Oximetry 97 97 Oxygen Delivery Method 09/04/22 21:45 09/04/22 21:45 09/04/22 21:49 Temperature Pulse Rate 60 59 L Respiratory Rate 18 Blood Pressure 115/65 Pulse Oximetry 96 98 Oxygen Delivery Method 09/04/22 21:50 09/04/22 21:50 09/04/22 21:55 Temperature Pulse Rate 59 L Respiratory Rate Blood Pressure 119/61 112/61 Pulse Oximetry 97 Oxygen Delivery Method 09/04/22 21:55 09/04/22 22:00 09/04/22 22:00 Temperature Pulse Rate 58 L 60 Respiratory Rate Blood Pressure 120/61 Pulse Oximetry 97 97 Oxygen Delivery Method 09/04/22 22:05 09/04/22 22:05 09/04/22 22:10 Temperature Pulse Rate 60 59 L Respiratory Rate Blood Pressure 111/64 Pulse Oximetry 98 97 Oxygen Delivery Method 09/04/22 22:10 Temperature Pulse Rate Respiratory Rate Blood Pressure 115/63 Pulse Oximetry Oxygen Delivery Method Medical Decision Making Lab Data 09/04/22 21:25 09/04/22 21:03 Labs: Lab Results 09/04/22 09/04/22 09/04/22 Range/Units 21:03 21:03 21:03 WBC 7.4 (4.5-11.0) X10^3/uL RBC 3.42 L (4.5-5.9) X10^6/uL Hgb 11.4 L (13.5-17.5) g/dL Hct 33.3 L (41-53) % MCV 97.4 (80-100) fL MCH 33.4 (26-34) PG MCHC 34.3 (30-36) % RDW 14.3 (11.6-14.8) % Plt Count 186 (150-400) X10^3/uL Neut % (Auto) 60.9 (50-75) % Lymph % (Auto) 23.2 L (25-40) % [place] % (Auto) 9.0 (3-14) % Eos % (Auto) 6.1 H (2-4) % Baso % (Auto) 0.8 (0-2) % Neut # (Auto) 4500 (7652-7981) /uL Lymph # (Auto) 1700 (0755-0608) /uL [place] # (Auto) 700 (0-900) /uL Eos # (Auto) 500 H (0-450) /uL Baso # (Auto) 100 (0-100) /uL PT 21.9 H (10.1-12.7) SECONDS INR 1.9 H (0.9-1.3) Sodium 137 (137-145) mmol/L Potassium 4.0 (3.4-5.1) mmol/L Chloride 102 (98-107) mmol/L Carbon Dioxide 22 (22-32) mmol/L BUN 28 H (9-20) mg/dL Creatinine 1.96 H (0.66-1.25) mg/dL Estimated GFR 34 L (>60) mL/min BUN/Creatinine Ratio 14.3 (6-22) Glucose 116 H (80-110) mg/dL Calcium 9.2 (8.4-10.2) mg/dL Total Bilirubin 1.0 (0.2-1.3) mg/dL AST 45 (17-59) IU/L ALT 35 (<50) IU/L Alkaline Phosphatase 72 (38-126) U/L Troponin I (0.01-0.034) ng/mL Total Protein 8.5 H (6.3-8.2) g/dL Albumin 4.2 (3.5-5.0) g/dL Globulin 4.3 H (1.7-4.1) g/dL Albumin/Globulin Ratio 1.0 (1.0-2.8) Ethyl Alcohol ( - 10) mg/dL SARS-CoV-2 (PCR) (Negative) Blood Type Crossmatch 09/04/22 09/04/22 09/04/22 Range/Units 21:03 21:03 21:25 WBC (4.5-11.0) X10^3/uL RBC (4.5-5.9) X10^6/uL Hgb (13.5-17.5) g/dL Hct (41-53) % MCV (80-100) fL MCH (26-34) PG MCHC (30-36) % RDW (11.6-14.8) % Plt Count (150-400) X10^3/uL Neut % (Auto) (50-75) % Lymph % (Auto) (25-40) % [place] % (Auto) (3-14) % Eos % (Auto) (2-4) % Baso % (Auto) (0-2) % Neut # (Auto) (1759-5880) /uL Lymph # (Auto) (1842-4839) /uL [place] # (Auto) (0-900) /uL Eos # (Auto) (0-450) /uL Baso # (Auto) (0-100) /uL PT (10.1-12.7) SECONDS INR (0.9-1.3) Sodium (137-145) mmol/L Potassium (3.4-5.1) mmol/L Chloride (98-107) mmol/L Carbon Dioxide (22-32) mmol/L BUN (9-20) mg/dL Creatinine (0.66-1.25) mg/dL Estimated GFR (>60) mL/min BUN/Creatinine Ratio (6-22) Glucose (80-110) mg/dL Calcium (8.4-10.2) mg/dL Total Bilirubin (0.2-1.3) mg/dL AST (17-59) IU/L ALT (<50) IU/L Alkaline Phosphatase (38-126) U/L Troponin I 0.015 (0.01-0.034) ng/mL Total Protein (6.3-8.2) g/dL Albumin (3.5-5.0) g/dL Globulin (1.7-4.1) g/dL Albumin/Globulin Ratio (1.0-2.8) Ethyl Alcohol < 10 ( - 10) mg/dL SARS-CoV-2 (PCR) Negative (Negative) Blood Type O Negative Crossmatch See Detail 09/04/22 Range/Units 21:25 WBC (4.5-11.0) X10^3/uL RBC (4.5-5.9) X10^6/uL Hgb 10.6 L (13.5-17.5) g/dL Hct 30.9 L (41-53) % MCV (80-100) fL MCH (26-34) PG MCHC (30-36) % RDW (11.6-14.8) % Plt Count (150-400) X10^3/uL Neut % (Auto) (50-75) % Lymph % (Auto) (25-40) % [place] % (Auto) (3-14) % Eos % (Auto) (2-4) % Baso % (Auto) (0-2) % Neut # (Auto) (2951-6949) /uL Lymph # (Auto) (4702-4241) /uL [place] # (Auto) (0-900) /uL Eos # (Auto) (0-450) /uL Baso # (Auto) (0-100) /uL PT (10.1-12.7) SECONDS INR (0.9-1.3) Sodium (137-145) mmol/L Potassium (3.4-5.1) mmol/L Chloride (98-107) mmol/L Carbon Dioxide (22-32) mmol/L BUN (9-20) mg/dL Creatinine (0.66-1.25) mg/dL Estimated GFR (>60) mL/min BUN/Creatinine Ratio (6-22) Glucose (80-110) mg/dL Calcium (8.4-10.2) mg/dL Total Bilirubin (0.2-1.3) mg/dL AST (17-59) IU/L ALT (<50) IU/L Alkaline Phosphatase (38-126) U/L Troponin I (0.01-0.034) ng/mL Total Protein (6.3-8.2) g/dL Albumin (3.5-5.0) g/dL Globulin (1.7-4.1) g/dL Albumin/Globulin Ratio (1.0-2.8) Ethyl Alcohol ( - 10) mg/dL SARS-CoV-2 (PCR) (Negative) Blood Type Crossmatch MDM Narrative Medical decision making narrative: CC: Mechanical fall at home with obvious gross trauma to right lower extremity Complicating co- morbidities: Age, lives independently, anticoagulated Corroborating data: Data collected from: patient, ex- who is available for emotional assistance in the emergency department Social determinants of health that may influence the patients condition: Age and independent living Medical records reviewed: Minimal records are available at this time Differential considered: Pelvic fracture, hip fracture, distal femur fracture, dislocated patella, tib-fib fracture, additional concerns with trauma to head torso additional extremities and abdomen. Exam documented above, pertinent findings include: No significant abnormalities to body aside from the obvious deformity to the right lower extremity Lab Test results independently reviewed as above. Pertinent findings: Chemistries show a significant jump in creatinine from 0.932 years ago to 1.96. Chemistries are otherwise reassuring CBC does not show any leukocytosis initial H&H is 11.4 and 33.3. 30 minutes later without significant fluid resuscitation it is 10.6 and 30.9. INR initially is 1.9 Independently reviewed EKG shows completely paced at 61 beats per minute Imaging studies independently reviewed: Chest x-ray does not show any acute bony injuries or abnormalities. Pelvis does not show acute injuries. He has a significant complete distal femur fracture with significant displacement. Has at least a bimalleolar right ankle fracture. Additional imaging is somewhat challenging given the significant displacement secondary to the femur fracture Consultations: 924pm [facility], meets trauma critera for transfer to ER, Discussed with DR Duke. Treatments: Due to his anticoagulation and concern for significant blood loss into the right thigh he is given Kcentra, 50 milligrams/kil, 5,000mg IV along with 10 mg oral vitamin K. Re-evaluations:945 patient is re-evaluated. Pain continues to be an issue despite continued narcotic. Blood pressure is decreasing slightly currently 112/61. This is also after Dilaudid given. Concern for blood loss as well. Is paced so heart rate is not helpful indicator of blood loss. He remains alert and oriented 1005pm concern for continued blood loss and hypotension. We will go ahead and do 1 unit of packed red blood cells. Lab says that they can have type specific uncross matched blood available within 10 minutes. Rui should be here within that time frame as well 1014 Discussed care with Rui RN Discussion: 81-year-old gentleman anticoagulated on Coumadin with INR 1.9 with significant femur fracture and concern for continuing blood loss. Also has at least bimalleolar ankle fracture. No additional trauma has been found on initial screening and secondary review. Airlift is currently EN route, Kcentra is ordered and about to be given. Will continue to closely follow blood pressure with low threshold for a unit of packed red blood cells Critical Care Time Critical Care Time Critical Care Time: Yes Total Critical Care Time: 37 Attestation: Critical care time is separate from other billable procedures. There is a high probability of a significant, sudden or life-threatening deterioration that requires my full and direct attention, intervention and personal management. This critical care time includes consultation with family and other consulting doctors, review of records, and interpretation of data from labs, EKGs and imagi ng as well as managements of geriatric trauma with long bone fracture, concern for hemodynamic instability and geriatric trauma in the setting of anticoagulation Discharge Plan Departure Patient Disposition: [facility] Clinical Impression: Femoral distal fracture Qualifiers: Encounter type: initial encounter Fracture type: closed Laterality: right Ankle fracture, bimalleolar, closed Qualifiers: Encounter type: initial encounter Laterality: right Qualified Code(s): S82.841A - Displaced bimalleolar fracture of right lower leg, initial encounter for closed fracture Fall Qualifiers: Encounter type: initial encounter Qualified Code(s): W19.XXXA - Unspecified fall, initial encounter Prescriptions: No Action beclomethasone dipropionate [Qvar] 80 MCG/PUFF aerosol 0.08 mg IH Qty: 0 Syringes: 3ml Luer-Juan Syringe 25g x 1 Qty: 0 cyclobenzaprine 10 mg tablet 10 mg PO TID PRN (Reason: muscle spasm) Qty: 14 0RF hydrocodone-acetaminophen 5-325 mg tablet 1 tab PO Q4-6H PRN (Reason: pain) Qty: 10 0RF
--- NOTE | 2022-09-04 21:14 | PC.NURSE ---
@ 2100 pt was log rolled and the back splint was removed per Dr Perales
[2022-09-04] MEDS: HYDROMORPHONE 0.5 MG INJ IV ×3 (21:21→22:07)
--- NOTE | 2022-09-04 21:26 | PC.NURSE ---
type/screen drawn
[2022-09-04 21:35] LABS: Add Manual Diff / Slide Review NO; Basophils Absolute Auto 100 /uL (0-100); Basophils Percent Auto 0.8 % (0-2); Eosinophils Absolute Auto 500 /uL (0-450); Eosinophils Percent Auto 6.1 % (2-4); Hematocrit 33.3 % (41-53); Hemoglobin 11.4 g/dL (13.5-17.5); INR 1.9 (0.9-1.3); Lymphocytes Absolute Auto 1700 /uL (1100-4500); Lymphocytes Percent Auto 23.2 % (25-40); Mean Corpuscular HGB Conc 34.3 % (30-36); Mean Corpuscular Hemoglobin 33.4 PG (26-34); Mean Corpuscular Volume 97.4 fL (80-100); Monocytes Absolute Auto 700 /uL (0-900); Neutrophils Absolute Auto 4500 /uL (1500-7000); Neutrophils Percent Auto 60.9 % (50-75); Platelet Count 186 X10^3/uL (150-400); Prothrombin Time 21.9 SECONDS (10.1-12.7); Red Blood Cell Count 3.42 X10^6/uL (4.5-5.9); Red Cell Distribution Width 14.3 % (11.6-14.8); White Blood Cell Count 7.4 X10^3/uL (4.5-11.0)
[2022-09-04 21:38] LABS: Ethanol (ETOH) < 10 mg/dL
[2022-09-04 21:38] LABS: Hematocrit 30.9 % (41-53); Hemoglobin 10.6 g/dL (13.5-17.5)
[2022-09-04 21:39] LABS: Alanine Aminotransferase 35 IU/L (<50); Albumin 4.2 g/dL (3.5-5.0); Alkaline Phosphatase 72 U/L (38-126); Aspartate Aminotransferase 45 IU/L (17-59); BUN Creatinine Ratio 14.3 (6-22); Blood Urea Nitrogen 28 mg/dL (9-20); Calcium 9.2 mg/dL (8.4-10.2); Carbon Dioxide 22 mmol/L (22-32); Chloride 102 mmol/L (98-107); Estimated Glomerular Filt Rate 34 mL/min (>60); Globulin 4.3 g/dL (1.7-4.1); Glucose 116 mg/dL (80-110); HEMOLYSIS < 15 (0-50); Sodium 137 mmol/L (137-145); Total Protein 8.5 g/dL (6.3-8.2)
[2022-09-04] MEDS: PHYTONADIONE (VIT K1) 5 MG TABLET 10 MG PO (21:43)
[2022-09-04 21:51] LABS: Troponin I 0.015 ng/mL (0.01-0.034)
[2022-09-04 22:00] LABS: COVID19 -Nasal RAPID Negative (Negative)
[2022-09-04] MEDS: [UNRECOGNIZED DRUG - OTHER] IV (22:17)
[2022-09-04] MEDS: ISOOSMOTIC VEHICLE IV (22:17)
--- NOTE | 2022-09-04 22:25 | PC.NURSE ---
Desireea hung just prior to pt being transferred to stretcher and leaving with airlift, infusing on airlift's pump when pt left
--- NOTE | 2022-09-04 22:30 | PC.NURSE ---
unit of Oneg blood arrived as [facility] airlift was loading pt on stretcher, as per orders from Dr Perales, unit of PRBC was given to transport nurses to be hung and infused, pot checks done per transport nurses and blood started to infuse
[2022-09-04] MEDS: ONDANSETRON 4 MG/2 ML INJ IV (22:37)
== END 2022-09-04 22:30 | disposition short-term general hospital (02) ==
PROVIDERS: Emergency Provider Emergency Medicine
DX: S72.401A Unspecified fracture of lower end of right femur, initial encounter for closed fracture (principal); S82.841A Displaced bimalleolar fracture of right lower leg, initial encounter for closed fracture; R58 Hemorrhage, not elsewhere classified; I95.9 Hypotension, unspecified; I48.91 Unspecified atrial fibrillation; Z79.01 Long term (current) use of anticoagulants; W18.30XA Fall on same level, unspecified, initial encounter; Z95.0 Presence of cardiac pacemaker; R79.89 Other specified abnormal findings of blood chemistry; Z20.822 Contact with and (suspected) exposure to COVID-19
CPT/HCPCS: 36415; 36430; 71045; 72170; 73551; 73600; 80053; 80320; 84484; 85014; 85018; 85025; 85610; 86850; 86870; 86900; 86901; 87635; 93005; 96374; 96375; 99285; 99291; C9803; P9016; G0390; J1170; J2405; J7168

== ENCOUNTER → 2023-02-20 09:04 | Outpatient (CLI) | payer OTHER, SELFPAY ==
[2023-02-20 12:00] LABS: Adenovirus F 40/41 Not Detected (Not Detect); Astrovirus Not Detected (Not Detect); Campylobacter Not Detected (Not Detect); Clostridium difficile toxin AB Not Detected (Not Detect); Cryptosporidium Not Detected (Not Detect); Cyclospora cayetanensis Not Detected (Not Detect); Entamoeba histolytica Not Detected (Not Detect); Enteroaggregative E.coli Not Detected (Not Detect); Enteropathogenic E.coli Not Detected (Not Detect); Enterotoxigenic E.coli It/st Not Detected (Not Detect); Giardia lamblia Not Detected (Not Detect); Norovirus GI/GII Not Detected (Not Detect); Plesiomonsa shigelloides Not Detected (Not Detect); Rotavirus A Not Detected (Not Detect); Salmonella Not Detected (Not Detect); Sapovirus Not Detected (Not Detect); Shiga-like toxin-prod E.coli Not Detected (Not Detect); Shigella/Enteroinvasive E.coli Not Detected (Not Detect); Vibrio Not Detected (Not Detect); Vibrio cholerae Not Detected (Not Detect); Yersinia enterocolitica Not Detected (Not Detect)
== END ==
PROVIDERS: PCP Internal Medicine; Referring Provider Internal Medicine Hematology & Oncology; Visit Provider Internal Medicine Hematology & Oncology
DX: R19.7 Diarrhea, unspecified (principal)
CPT/HCPCS: 87507

== ENCOUNTER 2023-03-17 09:21 | Emergency (ER) | payer OTHER, SELFPAY ==
[2023-03-17] VITALS (25 sets, daily range): BP systolic 121–133; BP diastolic 59–83; PULSE 60–61; RESP 11–21; TEMP 36.5; O2SAT 93–98; BMI 29.6
--- NOTE | 2023-03-17 09:30 | DI.CT.S_ITS ---
PROCEDURE: CT ABDOMEN PELVIS W CON INDICATIONS: vx1 day, black stools x 5, on chemo for multiple myeloma TECHNIQUE: After the administration of IV contrast, axial sections were acquired from the lung bases to the pubic symphysis. Coronal and sagittal reformats were performed. For radiation dose reduction, the following was used: automated exposure control, adjustment of mA and/or kV according to patient size. COMPARISON: Outside Film, CT, CT ABDOMEN PELVIS WITHOUT CONTRAST, 09/05/2022, 9:52. [facility], CT, ABDOMEN/PELVIS WITH CONTRAST, 10/06/2011, 12:50. [facility], CT, CT LUMBAR SPINE WITHOUT CONTRAST, 10/08/2022, 23:18. FINDINGS: Image quality: There is artifact associated with the metallic hardware. Lung bases: Small bilateral pleural effusions are seen, with overlying enhancing atelectasis. A small hiatal hernia is incidentally noted. Heart: There is moderate cardiomegaly. There is a mild pericardial effusion. Gas is seen within the right ventricle, which is most typically benign and iatrogenic. ABDOMEN: Liver: A simple liver cyst is seen anteriorly. Gallbladder: Therein gallstones can be seen within the gallbladder. No additional CT findings of cholecystitis are seen. There is apparent gallbladder wall cyst. Biliary ducts: Unremarkable. Pancreas: Unremarkable. Spleen: Unremarkable. Adrenal Glands: Unremarkable. Kidneys and Ureters: The kidneys demonstrate normal size and enhance symmetrically. There is no hydronephrosis. Simple left renal cysts are seen. Stomach and Bowel: Stomach, small bowel loops, and colon are unremarkable. A normal appendix is noted. Colonic diverticulosis is seen, without findings of active diverticulitis. Peritoneum: No abnormal intraperitoneal fluid. No free air. Ventral Wall: A mild periumbilical hernia is seen, containing fat. Abdominal Nodes: No retroperitoneal or mesenteric adenopathy by size criteria. Vessels: Aorta and inferior vena cava are normal in size. Atherosclerotic calcification is noted. PELVIS: Pelvic Organs: The prostate is prominent measuring 5.7 cm transversely. Bladder: Unremarkable. Pelvic Nodes: No enlarged lymph nodes. Miscellaneous: There is a fat containing right inguinal hernia. Bones: In this patient with this given history, scrutiny is given to the focal lytic lesions within the bones. None are seen. There is a stable compression deformity seen involving the superior endplate of L1. Scattered chronic appearing Schmorl's nodes can be seen. Right femoral neck hardware is seen. IMPRESSION: No focal lytic lesions are seen within the bones to suggest multiple myeloma There are small bilateral pleural effusions. There is moderate cardiomegaly. A small pericardial effusion is seen. Additional findings: Small hiatal hernia Simple liver cyst Layering gallstones Simple left renal cysts Fat containing periumbilical hernia Stable L1 anterior wedge deformity Normal appendix Diverticulosis, without active diverticulitis Prominent prostate Right femoral neck hardware Fat containing right inguinal hernia Dictated by: Timoteo Chambers M.D. on 03/17/2023 at 9:24 Approved by: Timoteo Chambers M.D. on 03/17/2023 at 9:29
[2023-03-17] MEDS: ONDANSETRON 4 MG/2 ML INJ IV (09:31)
--- NOTE | 2023-03-17 09:33 | ED.NAVMDI ---
HPI - Nausea/Vomiting/Diarrhea General Chief complaint: Nausea/Vomiting/Diarrhea Stated complaint: diarrhea/N/V Time Seen by Provider: 03/17/23 09:23 Source: patient, EMS, RN notes reviewed and old records reviewed Mode of arrival: EMS Limitations: no limitations History of Present Illness HPI Narrative: 82-year-old male currently anticoagulated on Coumadin for atrial fibrillation, CHF, pacemaker with multiple myeloma receiving chemotherapy with Dr. Vincent. Patient presents with complaint of nausea and vomiting this morning patient has had a week of diarrhea like stools which have been black for the past 4 5 days. Patient is felt weak with lightheadedness today, no syncope but felt like he might pass out earlier. Patient denies any chest pain or pressure, no shortness a breath, he denies abdominal back or flank pain. States nausea and vomiting to started today. No blood in emesis. Patient states no dysuria urgency or frequency. Patient states he has never required a blood transfusion does not have any known history of GI bleeds. He has been receiving chemotherapy for multiple myeloma, his last dose was a week ago. He states typically he gets a lot of diarrhea but not vomiting with it. He is actually supposed to be stopping his chemotherapy as it has been affecting quality of life. He denies any fevers chills, cold cough or congestion. Patient denies any new swelling in extremities. Patient has a pacemaker denies other surgeries. Allergic to sulfa. No tobacco, alcohol or illicit. He lives with his family but they are currently out of town. He states he uses a wheelchair to get around but does not require assistance to transfer to the toilet. Patient states he called EMS this morning because of the nausea vomiting and weakness. Primary care physician is Cely Hamilton. Related Data Home Medications Medication Instructions Recorded Confirmed beclomethasone dipropionate 80 0.08 mg IH ##0 03/28/11 mcg/actuation aerosol inhaler (Qvar) Syringes: 3ml Luer-Juan Syringe 25g ##0 03/06/12 x 1 Previous Rx's Medication Instructions Recorded cyclobenzaprine 10 mg tablet 10 mg PO TID PRN muscle spasm #14 08/28/22 tabs hydrocodone 5 mg-acetaminophen 325 1 tab PO Q4-6H PRN pain #10 tabs 08/28/22 mg tablet omeprazole 40 mg capsule,delayed 40 mg PO DAILY #30 caps 03/17/23 release Allergies Allergy/AdvReac Type Severity Reaction Status Date / Time Sulfa (Sulfonamide Allergy Severe HIVES, Verified 03/17/23 15:19 Antibiotics) BREATHING PROBLEMS prednisone Allergy Unknown UNKNOWN Verified 03/17/23 15:19 Review of Systems Review of Systems ROS Unobtainable: All systems reviewed & are unremarkable except as noted in HPI and below Patient History Medical History Hypothyroidism (acquired) BPH (benign prostatic hyperplasia) Pacemaker Atrial fibrillation Hyperlipidemia Social History Smoking Status: Never smoker Smoking Status: Never smoker alcohol intake frequency: a few times a week Alcohol type: beer Substance Use Type: does not use Exam Narrative Exam Narrative: GEN: well nourished, well appearing male, alert and oriented x 3, patient appears to be in mild distress. Patient does appear pale. HEENT: Atraumatic, pupils are equal round reactive to light, extraocular movements are intact, nares are clear, TMs are clear with no fluid, there is conjunctival pallor. Throat is clear without any exudates, erythema, tonsillar enlargement or uvular deviation HEART: Regular rate and rhythm without murmur, clicks, rubs. Pulses are equal in upper and lower extremities LUNGS:Lungs clear to auscultation, no wheezes, rales, crackles, chest moves symmetrically ABD:bowel sounds normal, soft, nondistended. Non-tender, no guarding, rebound, rigidity, no masses noted, no hepatosplenomegaly :No CVA tenderness MSCL: Non-tender, no muscle atrophy, muscles strength 5/5 upper and lower extremities, full range of motion. NEURO:CN 2-12 intact, sensation normal SKIN: No rash, erythema or other skin changes Initial Vital Signs Initial Vital Signs: Vital Signs Pulse Rate 60 03/17/23 09:25 Blood Pressure 133/66 03/17/23 09:25 Pulse Oximetry 97 03/17/23 09:25 Course Orders Ordered: ED Orders 03/17/23 09:30 CT abdomen pelvis w con Stat 03/17/23 09:35 Complete Blood Count AUTO DIFF Stat Comprehensive Metabolic Panel Stat Lipase Stat PTT Partial Thromboplastin Rajeev Stat Prothrombin Time INR Stat 03/17/23 09:45 Type and Screen Stat 03/17/23 09:57 EKG-12 Lead Stat 03/17/23 11:40 Ictotest Urine Stat Urinalysis and Microscopic Stat Discontinued Medications Sodium Chloride (Normal Saline 0.9%) 1,000 mls @ 1,000 mls/hr IV BOLUS ONE Stop: 03/17/23 10:29 Last Infusion: 03/17/23 10:48 Dose: Infused Documented By: Admin: 03/17/23 09:44 Dose: 1,000 mls/hr Documented By: RB Sodium Chloride (Normal Saline 0.9%) 1,000 mls @ 1,000 mls/hr IV BOLUS ONE Stop: 03/17/23 14:36 Last Infusion: 03/17/23 14:47 Dose: Infused Documented By: Admin: 03/17/23 13:40 Dose: 1,000 mls/hr Documented By: TY Ondansetron HCl (Ondansetron 4 Mg/2 Ml Inj) 4 mg IV NOW ONE Stop: 03/17/23 09:28 Last Admin: 03/17/23 09:31 Dose: 4 mg Documented By: TY Ondansetron HCl (Ondansetron 4 Mg Odt Prepack) 1 bottle MISC SEEINSTR ONE Stop: 03/17/23 15:20 Last Admin: 03/17/23 15:42 Dose: 1 bottle Documented By: EFRA Pantoprazole Sodium (Pantoprazole 40 Mg Vial) 80 mg IV NOW ONE Stop: 03/17/23 09:31 Last Admin: 03/17/23 09:44 Dose: 80 mg Documented By: RB Potassium Chloride (Potassium Chloride 20 Meq Tab) 40 meq PO NOW ONE Stop: 03/17/23 10:32 Last Admin: 03/17/23 10:36 Dose: 40 meq Documented By: RB Vital Signs Vital signs: Vital Signs - 8 hr 03/17/23 10:12 03/17/23 10:24 03/17/23 10:24 Pulse Rate 60 60 Respiratory Rate Blood Pressure 123/59 L Pulse Oximetry 96 94 Oxygen Delivery Method 03/17/23 10:30 03/17/23 10:30 03/17/23 11:00 Pulse Rate 60 Respiratory Rate Blood Pressure 122/60 121/61 Pulse Oximetry 93 Oxygen Delivery Method 03/17/23 11:00 03/17/23 11:30 03/17/23 11:30 Pulse Rate 60 61 Respiratory Rate 13 13 Blood Pressure 123/83 Pulse Oximetry 95 97 Oxygen Delivery Method Room Air 03/17/23 12:00 03/17/23 12:00 03/17/23 12:30 Pulse Rate 60 61 Respiratory Rate 13 14 Blood Pressure 129/62 Pulse Oximetry 97 95 Oxygen Delivery Method 03/17/23 12:30 03/17/23 13:00 03/17/23 13:01 Pulse Rate 60 60 Respiratory Rate 14 15 Blood Pressure 131/63 Pulse Oximetry 95 95 Oxygen Delivery Method 03/17/23 13:01 03/17/23 13:22 03/17/23 13:28 Pulse Rate 60 Respiratory Rate 15 Blood Pressure 131/64 122/59 L Pulse Oximetry 97 Oxygen Delivery Method 03/17/23 13:30 03/17/23 14:00 03/17/23 14:30 Pulse Rate 60 60 61 Respiratory Rate 13 21 14 Blood Pressure Pulse Oximetry 95 98 95 Oxygen Delivery Method 03/17/23 15:00 03/17/23 15:30 03/17/23 16:00 Pulse Rate 60 60 60 Respiratory Rate 15 20 14 Blood Pressure Pulse Oximetry 95 97 95 Oxygen Delivery Method 03/17/23 16:30 03/17/23 17:00 03/17/23 17:07 Pulse Rate 60 60 60 Respiratory Rate 13 11 L 13 Blood Pressure Pulse Oximetry 95 96 94 Oxygen Delivery Method 03/17/23 17:07 03/17/23 17:30 Pulse Rate 60 Respiratory Rate 18 Blood Pressure 132/69 Pulse Oximetry 97 Oxygen Delivery Method MDM - Nausea/Vomiting/Diarrhea Lab Data 03/17/23 09:35 03/17/23 09:35 Labs: Lab Results 03/17/23 03/17/23 03/17/23 Range/Units 09:35 09:45 11:40 WBC 4.7 (4.5-11.0) X10^3/uL RBC 3.30 L (4.5-5.9) X10^6/uL Hgb 11.3 L (13.5-17.5) g/dL Hct 33.1 L (41-53) % MCV 100.5 H (80-100) fL MCH 34.4 H (26-34) PG MCHC 34.2 (30-36) % RDW 16.5 H (11.6-14.8) % Plt Count 144 L (150-400) X10^3/uL Neut % (Auto) 68.6 (50-75) % Lymph % (Auto) 16.5 L (25-40) % [place] % (Auto) 8.9 (3-14) % Eos % (Auto) 4.0 (2-4) % Baso % (Auto) 2.0 (0-2) % Neut # (Auto) 3200 (7418-1735) /uL Lymph # (Auto) 800 L (9284-3680) /uL [place] # (Auto) 400 (0-900) /uL Eos # (Auto) 200 (0-450) /uL Baso # (Auto) 100 (0-100) /uL PT 14.6 H (10.1-12.7) SECONDS INR 1.3 (0.9-1.3) APTT 31 (26-36) SECONDS Sodium 136 L (137-145) mmol/L Potassium 3.1 L (3.4-5.1) mmol/L Chloride 102 (98-107) mmol/L Carbon Dioxide 25 (22-32) mmol/L BUN 10 (9-20) mg/dL Creatinine 0.76 (0.66-1.25) mg/dL Estimated GFR > 60 (>60) mL/min BUN/Creatinine Ratio 13.2 (6-22) Glucose 90 (80-110) mg/dL Calcium 7.6 L (8.4-10.2) mg/dL Total Bilirubin 1.0 (0.2-1.3) mg/dL AST 24 (17-59) IU/L ALT 21 (<50) IU/L Alkaline Phosphatase 58 (38-126) U/L Total Protein 5.6 L (6.3-8.2) g/dL Albumin 3.3 L (3.5-5.0) g/dL Globulin 2.3 (1.7-4.1) g/dL Albumin/Globulin Ratio 1.4 (1.0-2.8) Lipase 67 (23-300) U/L Urine Color Yellow Urine Appearance Clear Urine pH 5.5 (4.5-8.0) Ur Specific [place] >=1.030 H (1.000-1.035) Urine Protein Negative (Negative) Urine Glucose (UA) Negative (Negative) g/dL Urine Ketones 1+ H (NEGATIVE) Urine Occult Blood Negative (Negative) Urine Nitrate Negative (Negative) Urine Bilirubin 1+ H (NEGATIVE) Ur Bilirubin Confirm Negative (Negative) Urine Urobilinogen 0.2 (0.2) E.U./dL Ur Leukocyte Esterase Negative (NEGATIVE) Urine RBC 0-1/hpf (0-5/HPF) Urine WBC 1-5/hpf (0-5/HPF) Ur Squamous Epith Cells 0-1 /hpf (0-5/HPF) Urine Bacteria Few (2-10) H (None) Hyaline Casts 0-1/lpf (None) Urine Mucus 2+ H (Negative) Ur Culture Indicated? Cult not indicated Blood Type O Negative Antibody Screen Positive Antibody Identification Anti-D Imaging Data CT scan - abdomen/pelvis: Radiologist's Impression: [address] [address] [address] Scan Report? Signed Patient: Dameon Coulter MR#: [id number] : 1940 Acct:[id number] Age/Sex: 82 / M Date of Service: 03/17/23 Loc: ED Accession Number: [id number]? ? Procedure: CT abdomen pelvis w con Ordering Provider: Sheela Alexandra D.O. PROCEDURE:? CT ABDOMEN PELVIS W CON ? INDICATIONS:? vx1 day, black stools x 5, on chemo for multiple myeloma ? TECHNIQUE:?? After the administration of IV contrast, axial sections were acquired from the lung bases? to the pubic symphysis.? Coronal and sagittal reformats were performed.? For radiation? dose reduction, the following was used:? automated exposure control, adjustment of mA? and/or kV according to patient size.? ? COMPARISON:? [facility], CT, CT ABDOMEN PELVIS WITHOUT CONTRAST, 09/05/2022, 9:52.?? [facility], CT, ABDOMEN/PELVIS WITH CONTRAST, 10/06/2011, 12:50.? [facility], CT, CT LUMBAR SPINE WITHOUT CONTRAST, 10/08/2022, 23:18. ? FINDINGS:?? Image quality:? There is artifact associated with the metallic hardware.? ? ? Lung bases:? Small bilateral pleural effusions are seen, with overlying enhancing? atelectasis.? A small hiatal hernia is incidentally noted.?? Heart: There is moderate cardiomegaly.? There is a mild pericardial effusion.? Gas is? seen within the right ventricle, which is most typically benign and iatrogenic. ? ? ABDOMEN: Liver:? A simple liver cyst is seen anteriorly. Gallbladder:? Therein gallstones can be seen within the gallbladder.? No additional CT? findings of cholecystitis are seen.? There is apparent gallbladder wall cyst.? Biliary ducts:? Unremarkable.? ?? Pancreas:? Unremarkable.? ?? Spleen:? Unremarkable.? ?? Adrenal Glands:? Unremarkable.? ?? Kidneys and Ureters:? The kidneys demonstrate normal size and enhance symmetrically.?? There is no hydronephrosis.? Simple left renal cysts are seen.? Stomach and Bowel:? Stomach, small bowel loops, and colon are unremarkable.?? A normal appendix is noted.?? Colonic diverticulosis is seen, without findings of active diverticulitis. Peritoneum:? No abnormal intraperitoneal fluid.? No free air.?? ? Ventral Wall: A mild periumbilical hernia is seen, containing fat.? ? Abdominal Nodes:? No retroperitoneal or mesenteric adenopathy by size criteria.?? Vessels:? Aorta and inferior vena cava are normal in size.? Atherosclerotic calcification? is noted.?? ? PELVIS: Pelvic Organs:? The prostate is prominent measuring 5.7 cm transversely. Bladder:? Unremarkable.? ?? Pelvic Nodes: No enlarged lymph nodes.?? Miscellaneous:? There is a fat containing right inguinal hernia. ? Bones:? In this patient with this given history, scrutiny is given to the focal lytic? lesions within the bones.? None are seen. ? There is a stable compression deformity seen involving the superior endplate of L1.?? Scattered chronic appearing Schmorl's nodes can be seen. ? Right femoral neck hardware is seen. ? ? IMPRESSION:?? ? No focal lytic lesions are seen within the bones to suggest multiple myeloma ? There are small bilateral pleural effusions. ? There is moderate cardiomegaly. ? A small pericardial effusion is seen. ? ? ? Additional findings:?? Small hiatal hernia Simple liver cyst Layering gallstones Simple left renal cysts Fat containing periumbilical hernia Stable L1 anterior wedge deformity Normal appendix? Diverticulosis, without active diverticulitis Prominent prostate Right femoral neck hardware Fat containing right inguinal hernia? ? Dictated by: Timoteo Chambers M.D. on 03/17/2023 at 9:24? ? ? Approved by: Timoteo Chambers M.D. on 03/17/2023 at 9:29?? ECG Data Attestation: I personally reviewed and interpreted this ECG as follows: Prior ECG tracings: available for review Interpretation: Dual paced rhythm rate of 60 AR 176 QRS of 162 QTC of 534. No acute ST elevation. Patient has priors which appear to be similar. MDM Narrative Medical decision making narrative: This is an 82-year-old male complaint of nausea vomiting and diarrhea, patient states he is had black tarry stools. Hemoglobin does appear stable and even slightly improved from 09/04/2022 when he was 10.6 appears to be at close to his baseline. White count 4.7 platelets are slightly low at 144, coags negative, potassium 3.1 sodium is 136 with normal renal function electrolytes. Lipase is 67. CT abdomen pelvis shows no acute change to bowel. Patient has no focal lytic lesions small bilateral pleural effusions moderate cardiomegaly with small pericardial effusion. Additional findings include a small hiatal hernia liver cysts layering gallstones with normal LFTs simple left renal cyst. Fat containing periumbilical hernia with a stable L1 wedge deformity prominent prostate and fat containing right inguinal hernia. Patient received Zofran, 1L of fluids. Patient was able to tolerate oral potassium. He is not had any additional stool output in the department. Patient is feeling much improved. Reviewed all patient's findings from today. Patient normally uses a wheelchair all times but can transfer typically on his own. Patient felt lightheaded blood pressure was 1 20s which is consistent with a stay during emergency department. Was given additional fluids. On recheck patient continues to feel improved. Continued to have appropriate vitals no additional stool output no nausea or vomiting. He has tolerated orals. Spoke with Dr. Weaver, General surgery: Would not keep patient scope, would recommend adding Protonix or omeprazole daily if not already on, follow-up discussed who stopping chemotherapy which may help with diarrhea but would follow up if having persistent issues. Also discussed return precautions with patient. Patient is wheelchair-bound at all times. BLS transport was set up. Discharge Plan Departure Patient Disposition: Home Clinical Impression: Bilateral pleural effusion, Nausea vomiting and diarrhea Activity Restrictions/Additional Instructions: Please follow up with your physician for recheck. If you continue to have diarrhea you should have your labs rechecked and have either a colonoscopy or EGD. Referral is included below. Call for an appointment. You may take Zofran 1 tablet every 6 hours for nausea. I would recommend taking an omeprazole 40 mg daily if you are not already taking this or a similar medication. Please return for new or worsening symptoms, persistent vomiting, no abdominal back or flank pain, lightheadedness or passing out, persistent black or bloody stools, difficulty urination or other new or concerning changes. Prescriptions: New omeprazole 40 mg capsule,delayed release(DR/EC) 40 mg PO DAILY Qty: 30 0RF No Action beclomethasone dipropionate [Qvar] 80 MCG/PUFF aerosol 0.08 mg IH Qty: 0 Syringes: 3ml Luer-Juan Syringe 25g x 1 Qty: 0 cyclobenzaprine 10 mg tablet 10 mg PO TID PRN (Reason: muscle spasm) Qty: 14 0RF hydrocodone-acetaminophen 5-325 mg tablet 1 tab PO Q4-6H PRN (Reason: pain) Qty: 10 0RF Referrals: Mike Weaver MD [Physician] - Cely Hamilton MD [Primary Care Provider] - Stand Alone Forms: Patient Portal/API
[2023-03-17 09:39] LABS: Add Manual Diff / Slide Review NO; Basophils Absolute Auto 100 /uL (0-100); Eosinophils Absolute Auto 200 /uL (0-450); Hematocrit 33.1 % (41-53); Hemoglobin 11.3 g/dL (13.5-17.5); Lymphocytes Absolute Auto 800 /uL (1100-4500); Lymphocytes Percent Auto 16.5 % (25-40); Mean Corpuscular HGB Conc 34.2 % (30-36); Mean Corpuscular Hemoglobin 34.4 PG (26-34); Mean Corpuscular Volume 100.5 fL (80-100); Monocytes Absolute Auto 400 /uL (0-900); Monocytes Percent Auto 8.9 % (3-14); Neutrophils Absolute Auto 3200 /uL (1500-7000); Neutrophils Percent Auto 68.6 % (50-75); Platelet Count 144 X10^3/uL (150-400); Red Cell Distribution Width 16.5 % (11.6-14.8); White Blood Cell Count 4.7 X10^3/uL (4.5-11.0)
[2023-03-17 09:40] LABS: INR 1.3 (0.9-1.3); Prothrombin Time 14.6 SECONDS (10.1-12.7)
[2023-03-17 09:42] LABS: PTT Partial Thromboplastin Tim 31 SECONDS (26-36)
[2023-03-17] MEDS: PANTOPRAZOLE 40 MG VIAL 80 MG IV (09:44)
[2023-03-17] MEDS: SODIUM CHLORIDE 0.9% 1,000 ML 1000 ML IV ×2 (09:44→13:40)
[2023-03-17 09:47] LABS: Alanine Aminotransferase 21 IU/L (<50); Albumin 3.3 g/dL (3.5-5.0); Albumin Globulin Ratio 1.4 (1.0-2.8); Alkaline Phosphatase 58 U/L (38-126); Aspartate Aminotransferase 24 IU/L (17-59); BUN Creatinine Ratio 13.2 (6-22); Blood Urea Nitrogen 10 mg/dL (9-20); Calcium 7.6 mg/dL (8.4-10.2); Carbon Dioxide 25 mmol/L (22-32); Chloride 102 mmol/L (98-107); Estimated Glomerular Filt Rate > 60 mL/min (>60); Globulin 2.3 g/dL (1.7-4.1); Glucose 90 mg/dL (80-110); HEMOLYSIS 18 (0-50); Lipase 67 U/L (23-300); Potassium 3.1 mmol/L (3.4-5.1); Sodium 136 mmol/L (137-145); Total Protein 5.6 g/dL (6.3-8.2)
[2023-03-17] MEDS: POTASSIUM CHLORIDE 20 MEQ TAB 40 MEQ PO (10:36)
[2023-03-17 12:13] LABS: Appearance Urine UA CLEAR; Bilirubin Urine UA 1+ (NEGATIVE); Color Urine UA YELLOW; Glucose Urine UA NEGATIVE (Negative); Ketones Urine UA 1+ (NEGATIVE); Leukocyte Esterase Urine UA NEGATIVE (NEGATIVE); Nitrite Urine UA NEGATIVE (Negative); Occult Blood Urine UA NEGATIVE (Negative); Protein Urine UA NEGATIVE (Negative); Specific Gravity Urine UA >=1.030 (1.000-1.035); Urobilinogen Urine UA 0.2 E.U./dL (0.2); pH Urine UA 5.5 (4.5-8.0)
[2023-03-17 12:31] LABS: Bacteria Urine Few (2-10); Ictotest Urine Negative (Negative); RBC Urine 0-1/HPF (0-5/HPF); Squamous Epithelial Cell Urine 0-1 /HPF (0-5/HPF); WBC Urine 1-5/HPF (0-5/HPF)
[2023-03-17 12:32] LABS: Culture Indicated Urine Cult Not Indicated; Hyaline Casts Urine 0-1/LPF; Mucus Urine 2+ (Negative)
[2023-03-17] MEDS: ONDANSETRON 4 MG ODT PREPACK 1 BOTTLE MISC (15:42)
--- NOTE | 2023-03-17 17:08 | PC.NURSE ---
Patient has only had 50ml output since arriving. Patient bladder scan performed with 500ml in bladder. Patient States I'm fine I don't have to pee. Patient declined straight catheter.
== END 2023-03-17 17:49 | disposition home or self-care (01) ==
PROVIDERS: Emergency Provider Emergency Medicine; PCP Internal Medicine
DX: J90 Pleural effusion, not elsewhere classified (principal); R11.2 Nausea with vomiting, unspecified; R19.7 Diarrhea, unspecified; Z95.0 Presence of cardiac pacemaker
CPT/HCPCS: 36415; 51798; 74177; 80053; 81001; 83690; 85025; 85610; 85730; 86850; 86870; 86900; 86901; 93005; 93010; 96361; 96374; 96375; 99284; C9113; J2405; Q9967

== ENCOUNTER 2023-03-19 15:57 | Emergency (ER) | payer OTHER, SELFPAY ==
[2023-03-19] VITALS (40 sets, daily range): BP systolic 96–135; BP diastolic 54–69; PULSE 59–67; RESP 12–31; TEMP 36.6; O2SAT 95–99; BMI 27.5
[2023-03-19] MEDS: PANTOPRAZOLE 40 MG VIAL 80 MG IV (16:42)
[2023-03-19] MEDS: ONDANSETRON 4 MG/2 ML INJ IV (16:42)
[2023-03-19 17:04] LABS: INR 1.6 (0.9-1.3)
[2023-03-19 17:06] LABS: PTT Partial Thromboplastin Tim 33 SECONDS (26-36)
[2023-03-19 17:08] LABS: Alanine Aminotransferase 21 IU/L (<50); Albumin 3.4 g/dL (3.5-5.0); Albumin Globulin Ratio 1.6 (1.0-2.8); Alkaline Phosphatase 62 U/L (38-126); Aspartate Aminotransferase 33 IU/L (17-59); BUN Creatinine Ratio 10.6 (6-22); Bilirubin Total 0.9 mg/dL (0.2-1.3); Blood Urea Nitrogen 9 mg/dL (9-20); Calcium 7.6 mg/dL (8.4-10.2); Carbon Dioxide 26 mmol/L (22-32); Chloride 104 mmol/L (98-107); Estimated Glomerular Filt Rate > 60 mL/min (>60); Globulin 2.1 g/dL (1.7-4.1); Glucose 102 mg/dL (80-110); HEMOLYSIS < 15 (0-50); Potassium 3.3 mmol/L (3.4-5.1); Sodium 137 mmol/L (137-145); Total Protein 5.5 g/dL (6.3-8.2)
[2023-03-19 17:12] LABS: Add Manual Diff / Slide Review NO; Basophils Absolute Auto 0 /uL (0-100); Basophils Percent Auto 1.3 % (0-2); Eosinophils Absolute Auto 200 /uL (0-450); Eosinophils Percent Auto 5.5 % (2-4); Hematocrit 30.5 % (41-53); Hemoglobin 10.5 g/dL (13.5-17.5); Lymphocytes Absolute Auto 400 /uL (1100-4500); Lymphocytes Percent Auto 12.7 % (25-40); Mean Corpuscular HGB Conc 34.3 % (30-36); Mean Corpuscular Hemoglobin 34.6 PG (26-34); Monocytes Absolute Auto 400 /uL (0-900); Monocytes Percent Auto 14.1 % (3-14); Neutrophils Absolute Auto 1900 /uL (1500-7000); Neutrophils Percent Auto 66.4 % (50-75); Platelet Count 126 X10^3/uL (150-400); Red Blood Cell Count 3.02 X10^6/uL (4.5-5.9); Red Cell Distribution Width 16.2 % (11.6-14.8); White Blood Cell Count 2.9 X10^3/uL (4.5-11.0)
--- NOTE | 2023-03-19 17:52 | ED.GENADULT ---
HPI - General Adult General Chief complaint: Dizziness Stated complaint: D/black stool/orange urine/chemo pt Time Seen by Provider: 03/19/23 16:55 Source: patient Mode of arrival: Wheelchair History of Present Illness HPI narrative: Patient brought here by daughter. I spoke with daughter by phone because she had to leave. Patient sees Oncology for multiple myeloma as [facility]. His last chemo treatment was about 8 days ago. They discontinued it because he was improving with his cancer, also he was developing nonbloody diarrhea. No known sick contacts. Patient states he is on a blood thinner and thinks this Eliquis. Daughter did not state he was on blood thinners. Denies any abdominal pain. He is had multiple bouts of watery diarrhea home. Daughter moved up here from [place] to take care of him. She is becoming overwhelmed because the amount of care he needs. In addition this year he is endured a hip fracture. This limits him to a wheelchair. Hemoccult is negative Related Data Home Medications Medication Instructions Recorded Confirmed beclomethasone dipropionate 80 0.08 mg ##0 03/28/11 mcg/actuation aerosol inhaler (Qvar) Syringes: 3ml Luer-Juan Syringe 25g ##0 03/06/12 x 1 Previous Rx's Medication Instructions Recorded cyclobenzaprine 10 mg tablet 10 mg PO TID PRN muscle spasm #14 08/28/22 tabs hydrocodone 5 mg-acetaminophen 325 1 tab PO Q4-6H PRN pain #10 tabs 08/28/22 mg tablet omeprazole 40 mg capsule,delayed 40 mg PO DAILY #30 caps 03/17/23 release Allergies Allergy/AdvReac Type Severity Reaction Status Date / Time Sulfa (Sulfonamide Allergy Severe HIVES, Verified 03/17/23 15:19 Antibiotics) BREATHING PROBLEMS prednisone Allergy Unknown UNKNOWN Verified 03/17/23 15:19 Review of Systems Review of Systems Narrative: GENERAL: negative chills, fatigue, malaise, fever, sweats. HEENT: negative sinus pain, ear pain, sore throat RESPIRATORY: negative dyspnea, cough CARDIOVASCULAR: negative chest pain, palpitations GASTROINTESTINAL: negative nausea, vomiting, abdominal pain, positive bloody stool positive diarrhea : negative dysuria, frequency, hematuria MUSCULOSKELETAL: negative muscle or bony pain SKIN: negative rash, skin lesions NEUROLOGIC: negative weakness, numbness ROS Unobtainable: All systems reviewed & are unremarkable except as noted in HPI and below Patient History Medical History Hypothyroidism (acquired) BPH (benign prostatic hyperplasia) Pacemaker Atrial fibrillation Hyperlipidemia Social History household members: children Smoking Status: Never smoker Smoking Status: Never smoker alcohol intake frequency: a few times a week Alcohol type: beer Substance Use Type: does not use Exam Narrative Exam Narrative: GENERAL: in no distress, not toxic not dyspneic HEAD: Normocephalic. EYES: Pupils equal round ENT: Mucous membranes moist. NECK: Trachea midline. CARDIOVASCULAR: Regular rate and rhythm RESPIRATORY: Clear to auscultation. Breath sounds equal bilaterally. No wheezes, rales, or rhonchi. GASTROINTESTINAL: Abdomen soft, non-tender abdomen is soft flat nontender no peritoneal signs. Rectal exam is reassuring. No black or bloody stools on glove. Hemoccult is negative EXTREMITIES: No gross deformities. BACK: No flank tenderness. NEURO: Awake alert oriented self and date of and events. Clear speech. SKIN: Warm and dry PSYCH: Not anxious, is cooperative Initial Vital Signs Initial Vital Signs: Vital Signs Temperature 98 F 03/19/23 16:06 Pulse Rate 62 03/19/23 16:06 Respiratory Rate 18 03/19/23 16:06 Blood Pressure 96/54 L 03/19/23 16:06 Pulse Oximetry 98 03/19/23 16:06 Oxygen Delivery Method Room Air 03/19/23 16:06 Course Orders Ordered: Discontinued Medications Sodium Chloride (Normal Saline 0.9%) 500 mls @ 1,000 mls/hr IV BOLUS ONE Stop: 03/19/23 18:25 Last Infusion: 03/19/23 19:25 Dose: Infused Documented By: Admin: 03/19/23 18:05 Dose: 1,000 mls/hr Documented By: YOUNG Ondansetron HCl (Ondansetron 4 Mg/2 Ml Inj) 4 mg IV NOW PRN PRN Reason: Nausea And Vomiting Last Admin: 03/19/23 16:42 Dose: 4 mg Documented By: YOUNG Ondansetron HCl (Ondansetron 4 Mg Odt) 4 mg SL NOW PRN PRN Reason: Nausea And Vomiting Pantoprazole Sodium (Pantoprazole 40 Mg Vial) 80 mg IV NOW ONE Stop: 03/19/23 16:18 Last Admin: 03/19/23 16:42 Dose: 80 mg Documented By: YOUNG Vital Signs Vital signs: Vital Signs - 8 hr 03/20/23 07:45 03/20/23 08:00 03/20/23 08:00 Pulse Rate 60 60 Respiratory Rate 24 19 Blood Pressure 125/66 Pulse Oximetry 92 96 Oxygen Delivery Method 03/20/23 08:15 03/20/23 08:30 03/20/23 08:42 Pulse Rate 60 76 60 Respiratory Rate 23 24 22 Blood Pressure Pulse Oximetry 96 95 Oxygen Delivery Method 03/20/23 08:42 03/20/23 08:45 03/20/23 08:57 Pulse Rate 61 61 Respiratory Rate 22 22 Blood Pressure 109/58 L Pulse Oximetry 96 94 Oxygen Delivery Method 03/20/23 08:57 03/20/23 09:00 03/20/23 09:15 Pulse Rate 60 60 Respiratory Rate 23 23 Blood Pressure 117/64 Pulse Oximetry 96 Oxygen Delivery Method 03/20/23 09:30 03/20/23 09:45 03/20/23 10:08 Pulse Rate 60 60 65 Respiratory Rate 22 22 21 Blood Pressure Pulse Oximetry 97 95 Oxygen Delivery Method 03/20/23 10:15 03/20/23 10:15 03/20/23 10:20 Pulse Rate 60 60 Respiratory Rate 18 Blood Pressure 124/64 124/64 Pulse Oximetry 97 97 Oxygen Delivery Method Room Air 03/20/23 10:20 03/20/23 10:30 03/20/23 10:45 Pulse Rate 60 69 62 Respiratory Rate 20 22 23 Blood Pressure Pulse Oximetry 97 97 Oxygen Delivery Method 03/20/23 11:00 03/20/23 11:15 03/20/23 11:27 Pulse Rate 60 60 Respiratory Rate 18 20 Blood Pressure 122/66 Pulse Oximetry 96 Oxygen Delivery Method 03/20/23 11:27 03/20/23 11:29 03/20/23 11:30 Pulse Rate 60 60 60 Respiratory Rate 22 22 Blood Pressure 122/66 Pulse Oximetry 95 95 95 Oxygen Delivery Method Room Air 03/20/23 11:45 03/20/23 12:00 03/20/23 12:00 Pulse Rate 60 60 Respiratory Rate 20 24 Blood Pressure 130/60 Pulse Oximetry 95 97 Oxygen Delivery Method 03/20/23 12:15 03/20/23 12:23 03/20/23 12:23 Pulse Rate 60 60 Respiratory Rate 22 22 Blood Pressure 142/67 H Pulse Oximetry 98 98 Oxygen Delivery Method 03/20/23 12:29 03/20/23 12:29 03/20/23 12:30 Pulse Rate 61 60 Respiratory Rate 19 23 Blood Pressure 123/59 L Pulse Oximetry Oxygen Delivery Method 03/20/23 12:33 03/20/23 12:33 03/20/23 12:45 Pulse Rate 60 60 Respiratory Rate 18 22 Blood Pressure 126/61 Pulse Oximetry 96 Oxygen Delivery Method 03/20/23 13:00 03/20/23 13:15 03/20/23 13:30 Pulse Rate 60 60 60 Respiratory Rate 20 21 14 Blood Pressure Pulse Oximetry 98 98 97 Oxygen Delivery Method 03/20/23 13:45 03/20/23 14:31 03/20/23 14:34 Pulse Rate 60 60 60 Respiratory Rate 14 20 21 Blood Pressure Pulse Oximetry 97 99 98 Oxygen Delivery Method 03/20/23 14:34 03/20/23 14:45 03/20/23 15:00 Pulse Rate 60 62 Respiratory Rate 22 22 Blood Pressure 121/75 Pulse Oximetry 98 97 Oxygen Delivery Method 03/20/23 15:15 03/20/23 15:30 Pulse Rate 60 60 Respiratory Rate 24 21 Blood Pressure Pulse Oximetry 97 97 Oxygen Delivery Method Medical Decision Making Lab Data 03/19/23 16:49 03/19/23 16:49 Labs: Lab Results 03/19/23 03/19/23 03/20/23 Range/Units 16:49 19:05 10:17 WBC 2.9 L (4.5-11.0) X10^3/uL RBC 3.02 L (4.5-5.9) X10^6/uL Hgb 10.5 L (13.5-17.5) g/dL Hct 30.5 L (41-53) % MCV 101.0 H (80-100) fL MCH 34.6 H (26-34) PG MCHC 34.3 (30-36) % RDW 16.2 H (11.6-14.8) % Plt Count 126 L (150-400) X10^3/uL Neut % (Auto) 66.4 (50-75) % Lymph % (Auto) 12.7 L (25-40) % [place] % (Auto) 14.1 H (3-14) % Eos % (Auto) 5.5 H (2-4) % Baso % (Auto) 1.3 (0-2) % Neut # (Auto) 1900 (5207-0771) /uL Lymph # (Auto) 400 L (5529-1311) /uL [place] # (Auto) 400 (0-900) /uL Eos # (Auto) 200 (0-450) /uL Baso # (Auto) 0 (0-100) /uL PT 18.0 H (10.1-12.7) SECONDS INR 1.6 H (0.9-1.3) APTT 33 (26-36) SECONDS Sodium 137 (137-145) mmol/L Potassium 3.3 L (3.4-5.1) mmol/L Chloride 104 (98-107) mmol/L Carbon Dioxide 26 (22-32) mmol/L BUN 9 (9-20) mg/dL Creatinine 0.85 (0.66-1.25) mg/dL Estimated GFR > 60 (>60) mL/min BUN/Creatinine Ratio 10.6 (6-22) Glucose 102 (80-110) mg/dL Calcium 7.6 L (8.4-10.2) mg/dL Total Bilirubin 0.9 (0.2-1.3) mg/dL AST 33 (17-59) IU/L ALT 21 (<50) IU/L Alkaline Phosphatase 62 (38-126) U/L Total Protein 5.5 L (6.3-8.2) g/dL Albumin 3.4 L (3.5-5.0) g/dL Globulin 2.1 (1.7-4.1) g/dL Albumin/Globulin Ratio 1.6 (1.0-2.8) Ur Bilirubin Confirm Negative (Negative) Stl C. cayetanensis PCR Not detected (Not Detect) Stool Rotavirus (PCR) Not detected (Not Detect) Stool Adenovirus (PCR) Not detected (Not Detect) Stool Astrovirus (PCR) Not detected (Not Detect) Stool Cryptosporidium PCR Not detected (Not Detect) Stl E.coli Shiga Tox PCR Not detected (Not Detect) St Sh/Enteroin Ecoli PCR Not detected (Not Detect) Stl Enterotoxigenic E PCR Not detected (Not Detect) Stool EPEC (PCR) Not detected (Not Detect) Stl E. histolytica PCR Not detected (Not Detect) Stool Giardia Lamblia PCR Not detected (Not Detect) Stool Sapovirus (PCR) Not detected (Not Detect) Stl P. shigelloides PCR Not detected (Not Detect) St Y.enterocolitica PCR Not detected (Not Detect) Stool Vibrio (PCR) Not detected (Not Detect) Stl Vibrio cholerae PCR Not detected (Not Detect) Stl Enteroaggr Ecoli PCR Not detected (Not Detect) Stl Norovirus GI/GII PCR Not detected (Not Detect) Campylobacter (PCR) Not detected (Not Detect) C. difficile Tox (PCR) Not detected (Not Detect) Salmonella (PCR) Not detected (Not Detect) Blood Type O Negative Antibody Screen Negative Point of Care Testing Stool Occult Blood Negative Urine Dip Bedside Urine Glucose Negative Bedside Urine Bilirubin + 1 Bedside Urine Ketone +/- 5 Urine Specific Daniels 1.020 Bedside Urine Occult Blood - Negative Bedside Urine pH 6.0 Bedside Urine Protein +/- 15 Bedside Urine Urobilinogen - Negative Bedside Urine Nitrite - Negative Bedside Urine Leukocytes +/- 15 Esterase Point of care testing: Point of Care Testing Stool Occult Blood Negative Urine Dip Bedside Urine Glucose Negative Bedside Urine Bilirubin + 1 Bedside Urine Ketone +/- 5 Urine Specific Daniels 1.020 Bedside Urine Occult Blood - Negative Bedside Urine pH 6.0 Bedside Urine Protein +/- 15 Bedside Urine Urobilinogen - Negative Bedside Urine Nitrite - Negative Bedside Urine Leukocytes +/- [address] scan - abdomen/pelvis: Radiologist's Impression: [place] [address] CT Scan Report Signed Patient: Dameon Coulter MR#: [id number] : 1940 Acct:[id number] Age/Sex: 82 / M Date of Service: 03/19/23 Loc: ED Accession Number: [id number] Procedure: CT abdomen pelvis w con Ordering Provider: Jacobo Mart MD PROCEDURE: CT ABDOMEN PELVIS W CON INDICATIONS: IV contrast only/diarrhea/abdominal pain TECHNIQUE: After the administration of intravenous contrast, axial sections acquired from the lung bases to the pubic symphysis. Coronal and sagittal reformats were performed. For radiation dose reduction, the following was used: automated exposure control, adjustment of mA and/or kV according to patient size. COMPARISON: [facility], CT, CT ABDOMEN PELVIS W CON, 03/17/2023, 10:06. [facility], CT, ABDOMEN/PELVIS WITH CONTRAST, 10/06/2011, 12:50. FINDINGS: Image quality: Excellent. Lung bases: Small bilateral pleural effusions with atelectasis of the lung bases, similar when compared to the prior exam. Heart: Heart is enlarged. Pacemaker leads are partially imaged. ABDOMEN: Liver: Stable hepatic cyst. Gallbladder: Gallbladder contains tiny calcified gallstones and sludge. Focal low-density lesion again seen along the wall the gallbladder, possibly a gallbladder wall cyst. Biliary ducts: Unremarkable. Pancreas: Unremarkable. Spleen: Unremarkable. Adrenal Glands: Unremarkable. Kidneys and Ureters: Stable simple appearing renal cysts. No hydronephrosis. Stomach and Bowel: Extensive colonic diverticulosis is again seen. No focal fat stranding is seen to suggest acute diverticulitis. The colon is relatively underdistended. Peritoneum: No abnormal intraperitoneal fluid. No free air. Ventral Wall: Small fat containing periumbilical hernia. Abdominal Nodes: No retroperitoneal or mesenteric adenopathy by size criteria. Vessels: Aorta and inferior vena cava are normal in size. PELVIS: Pelvic Organs: Prostate is mildly enlarged. Bladder: Unremarkable. Pelvic Nodes: No enlarged lymph nodes. Miscellaneous: No hernias are seen. Bones: Mild compression deformity of L1 does not appear significantly changed. Mildly heterogeneous appearance of the visualized marrow spaces. Right proximal femoral fixation hardware is noted. IMPRESSION: 1. Mild bowel wall thickening throughout the colon is new when compared to the CT from 03/17/2023 and may be related to underdistention although a nonspecific colitis is not excluded. 2. Colonic diverticulosis without focal diverticulitis. 3. Cholelithiasis. MDM Narrative Medical decision making narrative: Patient brought here by daughter. I spoke with daughter by phone because she had to leave. Patient sees Oncology for multiple myeloma as [facility]. His last chemo treatment was about 8 days ago. They discontinued it because he was improving with his cancer, also he was developing nonbloody diarrhea. No known sick contacts. Patient states he is on a blood thinner and thinks this Eliquis. Daughter did not state he was on blood thinners. Denies any abdominal pain. He is had multiple bouts of watery diarrhea home. Daughter moved up here from [place] to take care of him. She is becoming overwhelmed because the amount of care he needs. In addition this year he is endured a hip fracture. This limits him to a wheelchair. Hemoccult is negative After history and exam CBC CMP normal saline CT abdomen pelvis MDM CC: Diarrhea Complicating co-morbidities: Multiple myeloma Data collected from: Patient and daughter Medical records reviewed: No recent visit for this complaint Differential considered: Includes but not limited to colitis viral syndrome diverticulitis diverticulosis Exam documented above, pertinent findings include: Nontender abdomen Lab Test results independently reviewed as above. Pertinent findings: WBC 2.9 hemoglobin 10.5 hematocrit 30.5 INR 1.6 sodium 137 potassium 3.3 GFR greater than 60, Hemoccult negative GI panel negative Independently reviewed EKG AV dual paced rhythm rate 60 Imaging studies independently reviewed: CT abdomen pelvis underdistention or possible nonspecific colitis. Diverticulosis without diverticulitis. Cholelithiasis present Consultations: Social work as well as physical therapy has seen patient. Social work [place], has spoken with patient and daughter. At this time they feel comfortable taking patient home. Physical therapy has evaluated and does not meet criteria for admission Treatments: Normal saline Re-evaluations: March 20 2023 at 3:45 p.m.. Social work has contacted daughter in they feel comfortable taking patient home now. Discussion: Appropriate for discharge home. Exam and laboratory studies and imaging are reassuring. Diarrhea is controlled here. Patient has been cooperative. No issues with his course of stay. Home health may not qualify for patient and daughter understands this. Social work will look at other resources for patient and family on outpatient basis. Return precautions reviewed with daughter. They desire discharge home. No antibiotics indicated for possible colitis. No fever here. Laboratory studies are reassuring. Patient's symptoms likely not due to chemotherapy or cancer treatment Diagnosis: Diarrhea 6:00 p.m. Barron: Sign out to Dr Castro, CT imaging is pending. GI panel has been ordered. Reassess with social work for placement, possible retirement facility if no medical criteria for admission March 20, 2023 at 7:00 a.m.Barron: ?sign out from Dr Castro, no new issues overnight. No medical criteria to admit patient. Need to proceed with social work in physical therapy evaluation for possible snf placement or respite care Discharge Plan Departure Patient Disposition: Home Clinical Impression: Diarrhea Qualifiers: Diarrhea type: unspecified type Qualified Code(s): R19.7 - Diarrhea, unspecified Instructions: DI for Diarrhea and Traveler's Diarrhea -- Adult Activity Restrictions/Additional Instructions: See your family doctor and oncologist as scheduled. Keep well hydrated. Return if worse if any questions or concerns. At this time laboratory studies and radiographic imaging are reassuring. No prescriptions or antibiotics indicated at this time. Prescriptions: No Action beclomethasone dipropionate [Qvar] 80 MCG/PUFF aerosol 0.08 mg IH Qty: 0 Syringes: 3ml Luer-Juan Syringe 25g x 1 Qty: 0 cyclobenzaprine 10 mg tablet 10 mg PO TID PRN (Reason: muscle spasm) Qty: 14 0RF hydrocodone-acetaminophen 5-325 mg tablet 1 tab PO Q4-6H PRN (Reason: pain) Qty: 10 0RF omeprazole 40 mg capsule,delayed release(DR/EC) 40 mg PO DAILY Qty: 30 0RF Referrals: Cely Hamilton MD [Primary Care Provider] - Stand Alone Forms: Patient Portal/API
--- NOTE | 2023-03-19 17:56 | DI.CT.S_ITS ---
PROCEDURE: CT ABDOMEN PELVIS W CON INDICATIONS: IV contrast only/diarrhea/abdominal pain TECHNIQUE: After the administration of intravenous contrast, axial sections acquired from the lung bases to the pubic symphysis. Coronal and sagittal reformats were performed. For radiation dose reduction, the following was used: automated exposure control, adjustment of mA and/or kV according to patient size. COMPARISON: [facility], CT, CT ABDOMEN PELVIS W CON, 03/17/2023, 10:06. [facility], CT, ABDOMEN/PELVIS WITH CONTRAST, 10/06/2011, 12:50. FINDINGS: Image quality: Excellent. Lung bases: Small bilateral pleural effusions with atelectasis of the lung bases, similar when compared to the prior exam. Heart: Heart is enlarged. Pacemaker leads are partially imaged. ABDOMEN: Liver: Stable hepatic cyst. Gallbladder: Gallbladder contains tiny calcified gallstones and sludge. Focal low-density lesion again seen along the wall the gallbladder, possibly a gallbladder wall cyst. Biliary ducts: Unremarkable. Pancreas: Unremarkable. Spleen: Unremarkable. Adrenal Glands: Unremarkable. Kidneys and Ureters: Stable simple appearing renal cysts. No hydronephrosis. Stomach and Bowel: Extensive colonic diverticulosis is again seen. No focal fat stranding is seen to suggest acute diverticulitis. The colon is relatively underdistended. Peritoneum: No abnormal intraperitoneal fluid. No free air. Ventral Wall: Small fat containing periumbilical hernia. Abdominal Nodes: No retroperitoneal or mesenteric adenopathy by size criteria. Vessels: Aorta and inferior vena cava are normal in size. PELVIS: Pelvic Organs: Prostate is mildly enlarged. Bladder: Unremarkable. Pelvic Nodes: No enlarged lymph nodes. Miscellaneous: No hernias are seen. Bones: Mild compression deformity of L1 does not appear significantly changed. Mildly heterogeneous appearance of the visualized marrow spaces. Right proximal femoral fixation hardware is noted. IMPRESSION: 1. Mild bowel wall thickening throughout the colon is new when compared to the CT from 03/17/2023 and may be related to underdistention although a nonspecific colitis is not excluded. 2. Colonic diverticulosis without focal diverticulitis. 3. Cholelithiasis. Approved by: Errol Shepherd M.D. on 03/19/2023 at 19:07
[2023-03-19] MEDS: SODIUM CHLORIDE 0.9% 500 ML 1000 ML IV (18:05)
--- NOTE | 2023-03-19 18:07 | CM.SWNOTE ---
ED SCHOOL LIBRARY MEDIA SPECIALIST Note SCHOOL LIBRARY MEDIA SPECIALIST receives consult from charge entry due to daughter's request for resources. Patient is 82 y/o male who presents to ED via POV with daughter. Patient presents to ED due to concern for black loose stools, dark urine and dizziness. Patient has been in wheelchair since femur fracture in September 2022, Patient has Muliple Myeloma cancer and sees oncologist with [facility]. Patient had similar presentation to ED on 03/17/23 and discharged to home via BLS. Patient's PCP is Dr. Cely Hamilton, patient has [employer] Medicare Advantage. Patient's oncologist is Dr. Conrad Zambrano with [facility]. Patient has hx of Paroxysmal atrial afib, muliple myeloma, ICD, Orthostatic hypotension, Hyperlipidemia, Cardiomyopathy, Depression and hypothroidism. SCHOOL LIBRARY MEDIA SPECIALIST speaks with daughter and son in law in [facility]. Daughter is Bina (Ph. # [phone]) Daughter reports she moved from [place] to care for patient and has been staying with him. Patient resides in [place]. It is reported that patient's chemotherapy stopped 8 days ago because of patient's progress and concern for patient's diarrhea. Daughter endorses concern for patient's increased confusion and concern for her ability to manage patient's needs. Daughter endorses that patient is wheelchair bound since femur fracture in September 2022. Patient was at [facility] 09/14/22-10/08/22, daughter reports that patient had HH at home afterwards. Daughter endorses that patient was not engaging in PT and services ended. Per EMR, patient is able to transfer from wheelchair to toilet at baseline but patient has been experiencing increased weakness. Daughter endorses concern for patient's ability to manage ADLs, and manage medication. Daughter endorses she has hired [facility] for patient transportation, respite for patient when they are not home. Daughter reports that patient often dismisses caregivers and dismisses his level of care needs. Daughter reports concern that patient has been eating less, and patient has made statements about giving up and wanting to end his life, daughter denies concern for patient's SI statements or intent and states that patient has always made dramatic statements. SCHOOL LIBRARY MEDIA SPECIALIST discusses SNF/[facility] respite facilities, SNF rehab if patient qualifies, and HH. SCHOOL LIBRARY MEDIA SPECIALIST provides daughter with Senior Resource guide. SCHOOL LIBRARY MEDIA SPECIALIST reports that patient will still need to be evaluated for a medical work up to determine next steps for plan of care. Currently awaiting stool, urine sample and CT results to determine disposition. Patient would benefit from PT evaluation tomorrow morning if still in ED to seek out SNF rehab if appropriate. Plan: ED provider to continue to medically evaluate patient for plan of care, ED SCHOOL LIBRARY MEDIA SPECIALIST to f/u with family regarding next steps. HH vs. SNF rehab. LINNETTE Howard
[2023-03-19 19:59] LABS: Ictotest Urine Negative (Negative)
[2023-03-20] VITALS (77 sets, daily range): BP systolic 109–142; BP diastolic 58–75; PULSE 59–76; RESP 13–31; O2SAT 92–99
--- NOTE | 2023-03-20 12:01 | PT.IIE ---
Medical History (Last Reviewed 03/19/23 @ 17:58 by Jacobo Mart MD) Atrial fibrillation BPH (benign prostatic hyperplasia) Hyperlipidemia Hypothyroidism (acquired) Pacemaker Physical Therapy Inpatient Evaluation/Re-Eval M1 PT/OT-IP Prior Functional Status Start: 03/20/23 15:39 Freq: Status: Active Protocol: Document 03/20/23 12:01 AB (Rec: 03/20/23 16:13 AB [email or web address]) Medical Review Prior Functional Status Medical History Reviewed Yes Communication able to make needs known Mobility and Gait pt stated that he is modified independent with bed mobility and transfers stand pivot without AD. pt stated that he has not walk for ~ 1 month due to R hip/knee/ankle pain. pt has been w/c bound. pt with h/o fall and found to have a distal R femur fx and pt was transferred to another hospital. pt s/p sx on R femur fx and went to [facility] per EMR but was d/c due to lack of pt participation. pt eventually went home and was w /c bound and pt stated that he had HHPT at home but was also stopped. pt initially stated that he does not want to walking as part of his goal but also stated that he is trying to walk with her daughter assisting him. pt stated that he was receiving chemo therapy (per EMR: last was ~ 8 days ago) and has on/off diarrhea and overall weakness. stated that he did not want to walk due to this and wants to just focus on one thing at a time and wants to recover first from the diarrhea/weakness before he focus on walking again. Social History Household Members children Number of Floors (Floors) One Floor Number of Stairs To Enter/Railing? no steps to enter Home Environment Standard Height Toilet,Tub/ Shower Home Equipment Front Wheel Walker,Manual Wheelchair,Raised Toilet Seat Without Armrests,Tub Transfer Bench,Hand Held Shower,Grab Bars Near Toilet,Grab Bars In Shower Additional Social History Comment pt stated that her daughter has a new born to take care of and may not be able to assist him. M2 PT-IP Current Condition Start: 03/20/23 15:39 Freq: Status: Active Protocol: Document 03/20/23 12:01 AB (Rec: 03/20/23 16:13 AB [email or web address]) Physical Therapy Current Condition Current Condition Evaluation Date 10/18/23 Treatment Diagnosis diarrhea; generalized weakness Onset Date 03/19/23 M3 PT-IP Subjective Start: 03/20/23 15:39 Freq: Status: Active Protocol: Document 03/20/23 12:01 AB (Rec: 03/20/23 16:13 AB [email or web address]) Subjective Physical Therapy Visit Type Type Initial Evaluation Visit Start Time 12:01 Visit Stop Time 12:50 Total Visit Minutes 49 Number of CROZE CUTTER Visits 0 M4 PT-IP Mobility and Gait Start: 03/20/23 15:39 Freq: Status: Active Protocol: Document 03/20/23 12:01 AB (Rec: 03/20/23 16:13 AB [id number]) PT-Bed Mobility Assessment Supine to Sit Supine to Sit Standby Assistance Sit to Supine Sit to Supine Standby Assistance PT-Transfer Assessment Sit to and From Stand Sit to and from Stand Standby Assistance,Contact Guard Assistance,1 Person Assistance,Use of Upper Extremities Equipment Transfer Assistive Device Gait Belt,Front Wheeled Walker Orthotic/Prosthetic Devices or Brace: No Transfers Transfer Destination Bed,Bedside Commode Transfer Technique Stand Step Pivot Transfer Ability Level of Assist Standby Assistance,1 Person Assistance,Use of Upper Extremities Comments Mobility Comments pt supine in bed. BP: 142/67. pt completed supine to sit SBA. HOB elevated. sit to stand SBA to CGA and ambulated in room using FWW ~ 20 ft min A. presents with narrow HUMZA and antalgic gait. pt sat back on EOB. demonstrated sit to stand from EOB SBA and step transfer using FWW bed<> bedside commode SBA. pt went back to bed. sit to supine SBA . positioned pt in bed. Call light and table placed within reach. informed transplant case manager regarding pt's mobility and assistance needed at home. Gait Assessment Gait Gait Assistance Required: Minimum Assistance Distance (Feet) 20 Able to Maintain Weight Bearing Status Yes During Gait Assistive Devices Assistive Device Gait Belt,Front Wheeled Walker Orthotic/Prosthetic Devices or Brace: No Gait Deviations General Gait Pattern Antalgic,Decreased Stride Length,Decreased Feet Clearance,Narrow Based Gait, Step-to Gait Factors Limiting Gait Function Factors Limiting Gait Function Decreased Activity Tolerance, Decreased Strength,Limited Range of Motion,Poor Balance, Poor Safety Awareness PT-Balance Assessment Sitting Balance and Reactions Static Sitting Balance Ability Normal Dynamic Sitting Balance Ability Good Standing Balance and Reactions Static Standing Balance Ability Good Dynamic Standing Balance Ability Fair Device Used FWW M5 PT-IP Objective Assessments Start: 03/20/23 15:39 Freq: Status: Active Protocol: Document 03/20/23 12:01 AB (Rec: 03/20/23 16:13 AB [id number]) Orientation Orientation/Cognition Level of Alertness Alert Orientation Name,Place,Situation Language Function Ability No Deficits Noted Safety Awareness Decreased Safety Awareness Memory Description Short Term Impaired Gross Range of Motion Lower Extremity ROM Assessment Within Functional Limits Strength Lower Extremity Strength Hip 4-/5 Knee 4-/5 Muscle Tone Muscle Tone WNL Yes M6 PT-IP Treatment Start: 03/20/23 15:39 Freq: Status: Active Protocol: Document 03/20/23 12:01 AB (Rec: 03/20/23 16:13 AB [email or web address]) Physical Therapy Treatment Education Education Provided Safety M7 PT-IP Assessment and Plan Start: 03/20/23 15:39 Freq: Status: Active Protocol: Document 03/20/23 12:01 AB (Rec: 03/20/23 16:13 AB [email or web address]) PT Summary Assessment and Plan Potential Rehabilitation Potential Fair Status of Condition at Evaluation Stable Summary Impairments Pain,ROM,Strength,Balance, Coordination,Sensation,Tone, Cognition,Bed Mobility, Transfers,Gait,Activity Tolerance Assessment Summary PT eval received from ED to determine pt's mobility and safe d/c plan. pt is an 82 y/ o male who presented to the ED with c/o diarrhea. pt with multiple myelomas and undergoing chemotherapy and last tx was ~ 8 days ago. pt stated that he has diarrhea on /off eversince his chemotherapy. pt with h/o R distal femur fx s/p surgery and pt stated that he does not usually ambulate after sx and has been w/c bound but able to do stand pivot transfer without AD. pt went to SNF after femur sx but PT was stopped due to pt's lack of participation. pt initially does not want ambulation to be one of his goals but then afterwards agreed to do ambulation. pt stated that he wants to resolve things one at a time and at this time, he is more concerned about the diarrhea and weakness and that is why he stopped walking. pt also stated that his daughter now has a new baby and will not be able to assist him much. pt educated on importance of mobility and ambulation and lack of will contribute to his weakness. pt understood. pt currently requiring SBA with transfers using FWW, able to ambulate min A using FWW ~ 20 ft. pt will need 24/12 assistance for safety. d/c plan: home with 24/7 and HHPT vs SNF. Goals Bed Mobility Goal Independent Transfer Goal Independent,Front Wheeled Walker Gait Goal Independent,Front Wheel Walker Gait Distance 100 Other Goals improve ambulation using FWW ~ 200 ft mod I Days to Meet Goals 10 Frequency of Treatment Frequency Of Treatment Once a Day Treatment Plan Physical Therapy Treatment Plan Bed Mobility Training,Transfer Training,Gait Training, Therapeutic Exercise,Balance Retraining,Discharge Planning, Hot or Cold Pack,Neuromuscular Re-ed,Coordination Retraining ,Manual Therapy Precautions Other Precautions falls Recommendations To Nursing Amount of Assist Needed 1 Person Assist Discharge Recommendations PT Discharge Recommendations Home with 24 Assist Available,Home Health,SNF Rehab,Home vs SNF Transportation Needs at Discharge Private Vehicle,Wheelchair/ Cabulance
[2023-03-20 12:09] LABS: Adenovirus F 40/41 Not Detected (Not Detect); Astrovirus Not Detected (Not Detect); Campylobacter Not Detected (Not Detect); Clostridium difficile toxin AB Not Detected (Not Detect); Cryptosporidium Not Detected (Not Detect); Cyclospora cayetanensis Not Detected (Not Detect); Entamoeba histolytica Not Detected (Not Detect); Enteroaggregative E.coli Not Detected (Not Detect); Enteropathogenic E.coli Not Detected (Not Detect); Enterotoxigenic E.coli It/st Not Detected (Not Detect); Giardia lamblia Not Detected (Not Detect); Norovirus GI/GII Not Detected (Not Detect); Plesiomonsa shigelloides Not Detected (Not Detect); Rotavirus A Not Detected (Not Detect); Salmonella Not Detected (Not Detect); Sapovirus Not Detected (Not Detect); Shiga-like toxin-prod E.coli Not Detected (Not Detect); Shigella/Enteroinvasive E.coli Not Detected (Not Detect); Vibrio Not Detected (Not Detect); Vibrio cholerae Not Detected (Not Detect); Yersinia enterocolitica Not Detected (Not Detect)
--- NOTE | 2023-03-20 12:12 | PC.NURSE ---
PT at bedside with patient, spoke with ROLL HAULER regarding pt, per ROLL HAULER, awaiting PT eval for further plan of care
--- NOTE | 2023-03-20 15:49 | CM.SWNOTE ---
SOCIAL WORK 03/20/23 10:00 Pt is an 82yo male who is seen in the ED for concern of diarrhea. He lives at home with daughter Bina and she voiced concern to staff on pt arrival last night about ability to care for pt at home. JUAN Daugherty spoke with pt about community resources in brief last evening while pt was pending medical clearance. See chart notes dated 03/19 for more details. Pt found to not have an admitting diagnosis and was medically cleared in the ED. He remained in the ED overnight awaiting PT evaluation. Per PT pt is appropriate for discharge home with PT and 24/12 care available, which there is as his daughter lives in the home. PT reports pt is able to transfer independently with only standby assist. He utilizes a wheelchair at baseline since 09/23. JUAN spoke with patient whose primary concern is that he is experiencing diarrhea. he denies concern for his safety or ability to meet his basic needs of health and safety at home, where his daughter lives also and is available 24/12. He is agreeable to engaging with Home Health PT services. JUAN spoke with patients daughter Bina [phone]. She verbalized understanding that pt does not meet criteria for SNF as there is not an identified skilled need for admission. She identifies primary concern is that he has in the past turned away caregivers she hired while she was away on vacation. he will decline food as he is worried about diarrhea, and does not have adequate PO intake. She notes that he has had [facility] in the past for PT but he either was not making progress and insurance would no longer pay, or he ran out of coverage, for PT, she is unsure which. She and pt are agreeable for JUAN to contact [facility] to ascertain if they are able to provide him further services. Daughter also notes that pt has stayed at [facility] in the past. He has paid all the upfront costs and could return there for just a daily fee, but at this time he does not wish to. Discussed available resources. Daughter made aware of how she could contact assisted living facilities to discuss respite services, and is aware this would be out of pocket. Also discussed process to apply for Medicaid. Recommend pt reach out to Aging and Disability resources for additional support. DaughterBina will pick pt up from the ED. Her current voiced concern is that pt will have another episode of diarrhea. Bedside RN agrees to call daughter and discuss plan of care to manage episodes of diarrhea. SW contacted [facility]. Darren indicates there is not a situation where a patient 'runs out of days,' and if there is a skilled need they will happily take the referral and will follow-up. Palomo Stokes, KATHY, AIRCRAFT ARMORER
--- NOTE | 2023-03-20 16:09 | PC.NURSE ---
Called daughter Bina to give update regarding discharge plan for patient. Discussed importance of hydration, attempting BRAT diet, limiting processed foods, increasing whole foods. Given information for local [employer] for medical equipment such as commode. Encouraged daughter to get well fitting adults diapers. Daughter verbalized understanding. All questions/concerns answered. Daughter to call ER when on the way to sp[place] moss picker patient.
== END 2023-03-20 17:13 | disposition home or self-care (01) ==
PROVIDERS: Emergency Medicine; Emergency Provider Emergency Medicine; PCP Internal Medicine
DX: R19.7 Diarrhea, unspecified (principal); Z79.01 Long term (current) use of anticoagulants
CPT/HCPCS: 36415; 74177; 80053; 81003; 82272; 85025; 85610; 85730; 86850; 86900; 86901; 87507; 93005; 93010; 96361; 96374; 96375; 97161; 97530; 99284; C9113; J2405

== ENCOUNTER 2023-04-06 10:17 | Inpatient (IN) | payer MEDICARE, OTHER, SELFPAY ==
[2023-04-06] VITALS (33 sets, daily range): BP systolic 91–133; BP diastolic 47–70; PULSE 60–76; RESP 15–32; TEMP 36.6–36.9; O2SAT 88–100; BMI 27.1
--- NOTE | 2023-04-06 10:58 | DI.RAD.S_ITS ---
PROCEDURE: XR CHEST 1V INDICATIONS: Shortness of breath TECHNIQUE: One view of the chest was acquired. COMPARISON: [facility], CR, XR CHEST 1V, 09/04/2022, 20:49. FINDINGS: Surgical changes and devices: Left-sided pacer. Lungs and pleura: There is mild diffuse reticulonodular pulmonary opacity. Moderate bibasilar airspace opacity. Small bilateral pleural effusions. No pneumothoraces. Mediastinum: Mediastinal contours appear normal. Heart size is normal. Bones and chest wall: No suspicious bony lesions. Overlying soft tissues appear unremarkable. IMPRESSION: 1. Mild diffuse atypical pneumonia versus edema. 2. Bibasilar atelectasis versus pneumonia. Continued plain film surveillance is recommended to ensure resolution, and to exclude underlying or central malignancy. 3. Small bilateral pleural effusions. Dictated by: Tomi Duong M.D. on 04/06/2023 at 11:29 Approved by: Tomi Duong M.D. on 04/06/2023 at 11:30
[2023-04-06 11:41] LABS: COVID-19 CEPHEID 4-PLEX PCR Negative (Negative); Influenza A - CEPHEID Flu A NEGATIVE (NEGATIVE); Influenza B - CEPHEID Flu B NEGATIVE (NEGATIVE); Respiratory Syncytial Virus Negative (Negative)
--- NOTE | 2023-04-06 11:50 | ED_ITS ---
HPI - SOB/Dyspnea <Bo Rodrigues PA-C - Last Filed: 04/06/23 15:27> General Chief Complaint: Shortness of Breath/Dyspnea Stated Complaint: ASTHMA Time Seen by Provider: 04/06/23 11:50 Source: patient Mode of arrival: Wheelchair Limitations: no limitations History of Present Illness HPI Narrative: This is an 82-year-old male presents emergency department due to a one-week history of shortness of breath. He states that it began with the changing of the seasons. He states that he has a history of chronic heart failure only takes spironolactone as needed as recommended by his primary care physician's's due to his chronically ?low blood pressure ?. He denies any chest pain, cough, nausea, vomiting, URI symptoms, fevers, or any other concerning signs or symptoms. Does state he has a chronic history of lower extremity edema, worse on the right after breaking his femur a couple of years ago. Related Data Home Medications Medication Instructions Recorded Confirmed beclomethasone dipropionate 80 0.08 mg IH ##0 03/28/11 mcg/actuation aerosol inhaler (Qvar) Syringes: 3ml Luer-Ujan Syringe 25g ##0 03/06/12 x 1 Previous Rx's Medication Instructions Recorded cyclobenzaprine 10 mg tablet 10 mg PO TID PRN muscle spasm #14 08/28/22 tabs hydrocodone 5 mg-acetaminophen 325 1 tab PO Q4-6H PRN pain #10 tabs 08/28/22 mg tablet omeprazole 40 mg capsule,delayed 40 mg PO DAILY #30 caps 03/17/23 release Allergies Allergy/AdvReac Type Severity Reaction Status Date / Time Sulfa (Sulfonamide Allergy Severe HIVES, Verified 04/06/23 10:54 Antibiotics) BREATHING PROBLEMS prednisone Allergy Unknown UNKNOWN Verified 04/06/23 10:54 Review of Systems <Bo Rodrigues PA-C - Last Filed: 04/06/23 15:27> Review of Systems Narrative: GENERAL: Denies chills, fatigue, malaise, fever, sweats. HEENT: Denies sinus pain, ear pain, sore throat, difficulty swallowing, dizziness. RESPIRATORY: Reports shortness of breath, denies, cough, wheezing, hemoptysis, sputum. CARDIOVASCULAR: Denies chest pain, palpitations, orthopnea, edema, GASTROINTESTINAL: Denies nausea, vomiting, abdominal pain, diarrhea, constipation, melena. : Denies dysuria, frequency, incontinence, hematuria, urinary retention. MUSCULOSKELETAL: denies weakness, joint pain, or bony pain SKIN: Denies rash, skin lesions, or other NEUROLOGIC: Denies weakness, headache, numbness, change in speech, confusion, seizures, incoordination. PSYCHIATRIC: No concerning psychosocial issues. 12 point review of systems is negative except for those stated above Patient History <Bo Rodrigues PA-C - Last Filed: 04/06/23 15:27> Medical History Hypothyroidism (acquired) BPH (benign prostatic hyperplasia) Pacemaker Atrial fibrillation Hyperlipidemia Social History household members: children Smoking Status: Never smoker alcohol intake: current Smoking Status: Never smoker alcohol intake frequency: a few times a week Alcohol type: beer Substance Use Type: does not use Exam <Bo Rodrigues PA-C - Last Filed: 04/06/23 15:27> Narrative Exam Narrative: GENERAL: Well-developed patient, in mild distress. HEAD: Atraumatic. Normocephalic. EYES: Pupils equal round and reactive. Extraocular motions intact. No scleral icterus. No injection or drainage. ENT: Nose without bleeding, purulent drainage. Throat without erythema, tonsillar hypertrophy or exudate. Airway patent. NECK: Trachea midline. Non tender CARDIOVASCULAR: Regular rate and rhythm without murmurs, gallops, or rubs. RESPIRATORY: No wheezing, rhonchi to bilateral lung hernández GASTROINTESTINAL: Abdomen soft, non-tender, nondistended. EXTREMITIES: 1+ pitting edema to bilateral lower extremities BACK: Nontender without deformity or crepitance. No flank tenderness. NEURO: AOx3. SKIN: No rash or erythema of visible areas Initial Vital Signs Initial Vital Signs: Vital Signs Temperature 98.4 F 04/06/23 10:45 Pulse Rate 60 04/06/23 10:45 Respiratory Rate 20 04/06/23 10:45 Blood Pressure 101/50 L 04/06/23 10:45 Pulse Oximetry 98 04/06/23 10:45 Oxygen Delivery Method Room Air 04/06/23 10:45 <Sabrina Sheldon DO - Last Filed: 04/08/23 00:02> Initial Vital Signs Initial Vital Signs: Vital Signs Temperature 98.4 F 04/06/23 10:45 Pulse Rate 60 04/06/23 10:45 Respiratory Rate 20 04/06/23 10:45 Blood Pressure 101/50 L 04/06/23 10:45 Pulse Oximetry 98 04/06/23 10:45 Oxygen Delivery Method Room Air 04/06/23 10:45 Course <Bo Rodrigues PA-C - Last Filed: 04/06/23 15:27> Orders Ordered: Acetaminophen (Acetaminophen 325 Mg Tablet) 650 mg PO Q4H PRN PRN Reason: Fever/Mild Pain (1-3) Hydrocodone Bitart/Acetaminophen (Hydrocodone/Acet 5/325 Tablet) 1 tab PO Q4H PRN PRN Reason: pain Amiodarone HCl (Amiodarone 200 Mg Tablet) 100 mg PO DAILY [facility] Apixaban (Apixaban 5 Mg Tablet) 5 mg PO BID [facility] Last Admin: 04/07/23 20:01 Dose: 5 mg Documented By: Admin: 04/07/23 09:38 Dose: 5 mg Documented By: Admin: 04/06/23 20:05 Dose: 5 mg Documented By: Atorvastatin Calcium (Atorvastatin 20 Mg Tablet) 20 mg PO BEDTIME [facility] Last Admin: 04/07/23 20:02 Dose: 20 mg Documented By: Admin: 04/06/23 20:05 Dose: 20 mg Documented By: Bupropion HCl (Bupropion Xl 150 Mg Tab) 150 mg PO DAILY [facility] Last Admin: 04/07/23 09:38 Dose: 150 mg Documented By: OSMIN Cyclobenzaprine HCl (Cyclobenzaprine 10 Mg Tablet) 10 mg PO TID PRN PRN Reason: muscle spasm Escitalopram Oxalate (Escitalopram 10 Mg Tablet) 20 mg PO DAILY [facility] Last Admin: 04/07/23 09:38 Dose: 20 mg Documented By: OSMIN Furosemide (Furosemide 40 Mg Tablet) 40 mg PO 0800,1700 [facility] Last Admin: 04/07/23 17:35 Dose: 40 mg Documented By: OSMIN Levothyroxine Sodium (Levothyroxine 100 Mcg Tablet) 100 mcg PO DAILY@0600 [facility] Midodrine (Midodrine Hcl 5 Mg Tablet) 10 mg PO 0600,1200,1800 [facility] Last Admin: 04/07/23 17:36 Dose: 10 mg Documented By: Admin: 04/07/23 12:27 Dose: 10 mg Documented By: OSMIN Pantoprazole Sodium (Pantoprazole Dr 40 Mg Tablet) 40 mg PO 0600 [facility] Last Admin: 04/07/23 06:33 Dose: 40 mg Documented By: Potassium Chloride (Potassium Chloride 20 Meq Tab) 20 meq PO DAILYCC [facility] Sodium Chloride (Sodium Chloride 0.9% Flush) 10 ml IV PRN PRN PRN Reason: Flush Sodium Chloride (Sodium Chloride 0.9% Flush) 10 ml IV BID [facility] Last Admin: 04/07/23 20:02 Dose: 10 ml Documented By: Admin: 04/07/23 12:28 Dose: Not Given Documented By: Admin: 04/06/23 23:53 Dose: 10 ml Documented By: Tamsulosin HCl (Tamsulosin 0.4 Mg Capsule) 0.4 mg PO DAILY [facility] Last Admin: 04/07/23 09:38 Dose: 0.4 mg Documented By: OSMIN Valacyclovir HCl (Valacyclovir 500 Mg Tablet) 500 mg PO BID [facility] Last Admin: 04/07/23 20:02 Dose: 500 mg Documented By: Admin: 04/07/23 09:38 Dose: 500 mg Documented By: Admin: 04/06/23 20:05 Dose: 500 mg Documented By: Discontinued Medications Amiodarone HCl (Amiodarone 200 Mg Tablet) 200 mg PO DAILY [facility] Last Admin: 04/07/23 09:38 Dose: 200 mg Documented By: OSMIN Furosemide (Furosemide 40 Mg/4 Ml Vial) 20 mg IV NOW ONE Stop: 04/06/23 12:17 Last Admin: 04/06/23 12:30 Dose: 20 mg Documented By: RYNE Furosemide (Furosemide 40 Mg/4 Ml Vial) 20 mg IV NOW ONE Stop: 04/06/23 13:45 Last Admin: 04/06/23 13:56 Dose: 20 mg Documented By: RYNE Furosemide (Furosemide 40 Mg/4 Ml Vial) 40 mg IV Q12HR [facility] Last Admin: 04/06/23 23:52 Dose: 40 mg Documented By: Furosemide (Furosemide 40 Mg/4 Ml Vial) 20 mg IV NOW ONE Stop: 04/07/23 15:34 Last Admin: 04/07/23 16:14 Dose: 20 mg Documented By: OSMIN Levothyroxine Sodium (Levothyroxine 88 Mcg Tablet) 88 mcg PO DAILY@0600 [facility] Last Admin: 04/07/23 06:33 Dose: 88 mcg Documented By: Metoprolol Succinate (Metoprolol Er 25 Mg Tablet) 25 mg PO DAILY [facility] Last Admin: 04/07/23 09:41 Dose: 25 mg Documented By: OSMIN Midodrine (Midodrine Hcl 5 Mg Tablet) 5 mg PO 0600,1200,1800 [facility] Last Admin: 04/07/23 06:33 Dose: 5 mg Documented By: Admin: 04/06/23 20:05 Dose: 5 mg Documented By: Ondansetron HCl (Ondansetron 4 Mg/2 Ml Inj) 4 mg IV Q4HR PRN PRN Reason: Nausea And Vomiting Ondansetron HCl (Ondansetron 4 Mg Odt) 4 mg SL Q4HR PRN PRN Reason: Nausea Potassium Chloride (Potassium Chloride 20 Meq Tab) 40 meq PO Q6H [facility] Stop: 04/07/23 13:31 Last Admin: 04/07/23 13:47 Dose: 40 meq Documented By: Admin: 04/07/23 09:37 Dose: 40 meq Documented By: OSMIN Vital Signs Vital signs: Vital Signs - 8 hr 04/06/23 10:45 04/06/23 11:50 04/06/23 11:51 Temperature 98.4 F Pulse Rate 60 76 Respiratory Rate 20 Blood Pressure 101/50 L 91/60 Pulse Oximetry 98 94 Oxygen Delivery Method Room Air Oxygen Flow Rate 04/06/23 11:51 04/06/23 11:55 04/06/23 11:55 Temperature Pulse Rate 64 60 Respiratory Rate 15 Blood Pressure 101/63 Pulse Oximetry 90 L 98 Oxygen Delivery Method Room Air Nasal Cannula Oxygen Flow Rate 2 04/06/23 12:00 04/06/23 12:00 04/06/23 12:10 Temperature Pulse Rate 60 Respiratory Rate 16 Blood Pressure 104/57 L 92/55 L Pulse Oximetry 99 Oxygen Delivery Method Nasal Cannula Oxygen Flow Rate 2 04/06/23 12:10 04/06/23 12:21 04/06/23 12:21 Temperature Pulse Rate 63 60 Respiratory Rate 20 18 Blood Pressure 111/67 Pulse Oximetry 100 100 Oxygen Delivery Method Nasal Cannula Nasal Cannula Oxygen Flow Rate 2 2 04/06/23 12:30 04/06/23 12:30 04/06/23 12:35 Temperature Pulse Rate 60 Respiratory Rate 17 Blood Pressure 102/59 L 101/63 Pulse Oximetry 98 Oxygen Delivery Method Nasal Cannula Oxygen Flow Rate 2 04/06/23 12:35 04/06/23 12:41 04/06/23 12:41 Temperature Pulse Rate 60 62 Respiratory Rate 16 21 Blood Pressure 97/59 L Pulse Oximetry 99 99 Oxygen Delivery Method Nasal Cannula Nasal Cannula Oxygen Flow Rate 2 2 04/06/23 12:46 04/06/23 12:46 04/06/23 12:50 Temperature Pulse Rate 60 Respiratory Rate 18 Blood Pressure 122/57 L 109/59 L Pulse Oximetry 98 Oxygen Delivery Method Nasal Cannula Oxygen Flow Rate 2 04/06/23 12:50 04/06/23 13:00 04/06/23 13:00 Temperature Pulse Rate 60 60 Respiratory Rate 17 18 Blood Pressure 111/70 Pulse Oximetry 98 99 Oxygen Delivery Method Nasal Cannula Nasal Cannula Oxygen Flow Rate 2 2 04/06/23 13:11 04/06/23 13:11 04/06/23 13:30 Temperature Pulse Rate 60 Respiratory Rate 17 Blood Pressure 116/57 L 103/67 Pulse Oximetry 99 Oxygen Delivery Method Oxygen Flow Rate 04/06/23 13:30 04/06/23 13:40 04/06/23 13:40 Temperature Pulse Rate 61 60 Respiratory Rate 18 21 Blood Pressure 105/59 L Pulse Oximetry 99 Oxygen Delivery Method Oxygen Flow Rate 04/06/23 13:50 04/06/23 13:50 04/06/23 14:00 Temperature Pulse Rate 60 Respiratory Rate 23 22 Blood Pressure 112/66 Pulse Oximetry 98 Oxygen Delivery Method Oxygen Flow Rate 04/06/23 14:01 04/06/23 14:10 04/06/23 14:10 Temperature Pulse Rate 61 Respiratory Rate 19 Blood Pressure 100/56 L 109/56 L Pulse Oximetry 99 Oxygen Delivery Method Oxygen Flow Rate 04/06/23 14:20 04/06/23 14:20 04/06/23 14:30 Temperature Pulse Rate 60 Respiratory Rate 19 Blood Pressure 107/62 103/69 Pulse Oximetry 99 Oxygen Delivery Method Oxygen Flow Rate 04/06/23 14:30 04/06/23 14:40 04/06/23 14:40 Temperature Pulse Rate 60 Respiratory Rate 18 19 Blood Pressure 120/61 Pulse Oximetry 95 Oxygen Delivery Method Oxygen Flow Rate 04/06/23 14:50 04/06/23 14:50 Temperature Pulse Rate 60 Respiratory Rate 23 Blood Pressure 133/60 Pulse Oximetry 96 Oxygen Delivery Method Oxygen Flow Rate <Sabrina Sheldon DO - Last Filed: 04/08/23 00:02> Orders Ordered: Acetaminophen (Acetaminophen 325 Mg Tablet) 650 mg PO Q4H PRN PRN Reason: Fever/Mild Pain (1-3) Hydrocodone Bitart/Acetaminophen (Hydrocodone/Acet 5/325 Tablet) 1 tab PO Q4H PRN PRN Reason: pain Amiodarone HCl (Amiodarone 200 Mg Tablet) 100 mg PO DAILY [facility] Apixaban (Apixaban 5 Mg Tablet) 5 mg PO BID [facility] Last Admin: 04/07/23 20:01 Dose: 5 mg Documented By: Admin: 04/07/23 09:38 Dose: 5 mg Documented By: Admin: 04/06/23 20:05 Dose: 5 mg Documented By: Atorvastatin Calcium (Atorvastatin 20 Mg Tablet) 20 mg PO BEDTIME [facility] Last Admin: 04/07/23 20:02 Dose: 20 mg Documented By: Admin: 04/06/23 20:05 Dose: 20 mg Documented By: Bupropion HCl (Bupropion Xl 150 Mg Tab) 150 mg PO DAILY [facility] Last Admin: 04/07/23 09:38 Dose: 150 mg Documented By: OSMIN Cyclobenzaprine HCl (Cyclobenzaprine 10 Mg Tablet) 10 mg PO TID PRN PRN Reason: muscle spasm Escitalopram Oxalate (Escitalopram 10 Mg Tablet) 20 mg PO DAILY [facility] Last Admin: 04/07/23 09:38 Dose: 20 mg Documented By: OSMIN Furosemide (Furosemide 40 Mg Tablet) 40 mg PO 0800,1700 [facility] Last Admin: 04/07/23 17:35 Dose: 40 mg Documented By: OSMIN Levothyroxine Sodium (Levothyroxine 100 Mcg Tablet) 100 mcg PO DAILY@0600 [facility] Midodrine (Midodrine Hcl 5 Mg Tablet) 10 mg PO 0600,1200,1800 [facility] Last Admin: 04/07/23 17:36 Dose: 10 mg Documented By: Admin: 04/07/23 12:27 Dose: 10 mg Documented By: OSMIN Pantoprazole Sodium (Pantoprazole Dr 40 Mg Tablet) 40 mg PO 0600 [facility] Last Admin: 04/07/23 06:33 Dose: 40 mg Documented By: MS Potassium Chloride (Potassium Chloride 20 Meq Tab) 20 meq PO DAILYCC [facility] Sodium Chloride (Sodium Chloride 0.9% Flush) 10 ml IV PRN PRN PRN Reason: Flush Sodium Chloride (Sodium Chloride 0.9% Flush) 10 ml IV BID [facility] Last Admin: 04/07/23 20:02 Dose: 10 ml Documented By: Admin: 04/07/23 12:28 Dose: Not Given Documented By: Admin: 04/06/23 23:53 Dose: 10 ml Documented By: MS Tamsulosin HCl (Tamsulosin 0.4 Mg Capsule) 0.4 mg PO DAILY [facility] Last Admin: 04/07/23 09:38 Dose: 0.4 mg Documented By: OSMIN Valacyclovir HCl (Valacyclovir 500 Mg Tablet) 500 mg PO BID [facility] Last Admin: 04/07/23 20:02 Dose: 500 mg Documented By: Admin: 04/07/23 09:38 Dose: 500 mg Documented By: Admin: 04/06/23 20:05 Dose: 500 mg Documented By: MS Discontinued Medications Amiodarone HCl (Amiodarone 200 Mg Tablet) 200 mg PO DAILY [facility] Last Admin: 04/07/23 09:38 Dose: 200 mg Documented By: OSMIN Furosemide (Furosemide 40 Mg/4 Ml Vial) 20 mg IV NOW ONE Stop: 04/06/23 12:17 Last Admin: 04/06/23 12:30 Dose: 20 mg Documented By: RYNE Furosemide (Furosemide 40 Mg/4 Ml Vial) 20 mg IV NOW ONE Stop: 04/06/23 13:45 Last Admin: 04/06/23 13:56 Dose: 20 mg Documented By: RYNE Furosemide (Furosemide 40 Mg/4 Ml Vial) 40 mg IV Q12HR [facility] Last Admin: 04/06/23 23:52 Dose: 40 mg Documented By: Furosemide (Furosemide 40 Mg/4 Ml Vial) 20 mg IV NOW ONE Stop: 04/07/23 15:34 Last Admin: 04/07/23 16:14 Dose: 20 mg Documented By: OSMIN Levothyroxine Sodium (Levothyroxine 88 Mcg Tablet) 88 mcg PO DAILY@0600 [facility] Last Admin: 04/07/23 06:33 Dose: 88 mcg Documented By: Metoprolol Succinate (Metoprolol Er 25 Mg Tablet) 25 mg PO DAILY [facility] Last Admin: 04/07/23 09:41 Dose: 25 mg Documented By: OSMIN Midodrine (Midodrine Hcl 5 Mg Tablet) 5 mg PO 0600,1200,1800 [facility] Last Admin: 04/07/23 06:33 Dose: 5 mg Documented By: Admin: 04/06/23 20:05 Dose: 5 mg Documented By: Ondansetron HCl (Ondansetron 4 Mg/2 Ml Inj) 4 mg IV Q4HR PRN PRN Reason: Nausea And Vomiting Ondansetron HCl (Ondansetron 4 Mg Odt) 4 mg SL Q4HR PRN PRN Reason: Nausea Potassium Chloride (Potassium Chloride 20 Meq Tab) 40 meq PO Q6H [facility] Stop: 04/07/23 13:31 Last Admin: 04/07/23 13:47 Dose: 40 meq Documented By: Admin: 04/07/23 09:37 Dose: 40 meq Documented By: OSMIN Vital Signs Vital signs: Vital Signs - 8 hr 04/06/23 10:45 04/06/23 11:50 04/06/23 11:51 Temperature 98.4 F Pulse Rate 60 76 Respiratory Rate 20 Blood Pressure 101/50 L 91/60 Pulse Oximetry 98 94 Oxygen Delivery Method Room Air Oxygen Flow Rate 04/06/23 11:51 04/06/23 11:55 04/06/23 11:55 Temperature Pulse Rate 64 60 Respiratory Rate 15 Blood Pressure 101/63 Pulse Oximetry 90 L 98 Oxygen Delivery Method Room Air Nasal Cannula Oxygen Flow Rate 2 04/06/23 12:00 04/06/23 12:00 04/06/23 12:10 Temperature Pulse Rate 60 Respiratory Rate 16 Blood Pressure 104/57 L 92/55 L Pulse Oximetry 99 Oxygen Delivery Method Nasal Cannula Oxygen Flow Rate 2 04/06/23 12:10 04/06/23 12:21 04/06/23 12:21 Temperature Pulse Rate 63 60 Respiratory Rate 20 18 Blood Pressure 111/67 Pulse Oximetry 100 100 Oxygen Delivery Method Nasal Cannula Nasal Cannula Oxygen Flow Rate 2 2 04/06/23 12:30 04/06/23 12:30 04/06/23 12:35 Temperature Pulse Rate 60 Respiratory Rate 17 Blood Pressure 102/59 L 101/63 Pulse Oximetry 98 Oxygen Delivery Method Nasal Cannula Oxygen Flow Rate 2 04/06/23 12:35 04/06/23 12:41 04/06/23 12:41 Temperature Pulse Rate 60 62 Respiratory Rate 16 21 Blood Pressure 97/59 L Pulse Oximetry 99 99 Oxygen Delivery Method Nasal Cannula Nasal Cannula Oxygen Flow Rate 2 2 04/06/23 12:46 04/06/23 12:46 04/06/23 12:50 Temperature Pulse Rate 60 Respiratory Rate 18 Blood Pressure 122/57 L 109/59 L Pulse Oximetry 98 Oxygen Delivery Method Nasal Cannula Oxygen Flow Rate 2 04/06/23 12:50 04/06/23 13:00 04/06/23 13:00 Temperature Pulse Rate 60 60 Respiratory Rate 17 18 Blood Pressure 111/70 Pulse Oximetry 98 99 Oxygen Delivery Method Nasal Cannula Nasal Cannula Oxygen Flow Rate 2 2 04/06/23 13:11 04/06/23 13:11 04/06/23 13:30 Temperature Pulse Rate 60 Respiratory Rate 17 Blood Pressure 116/57 L 103/67 Pulse Oximetry 99 Oxygen Delivery Method Oxygen Flow Rate 04/06/23 13:30 04/06/23 13:40 04/06/23 13:40 Temperature Pulse Rate 61 60 Respiratory Rate 18 21 Blood Pressure 105/59 L Pulse Oximetry 99 Oxygen Delivery Method Oxygen Flow Rate 04/06/23 13:50 04/06/23 13:50 04/06/23 14:00 Temperature Pulse Rate 60 Respiratory Rate 23 22 Blood Pressure 112/66 Pulse Oximetry 98 Oxygen Delivery Method Oxygen Flow Rate 04/06/23 14:01 04/06/23 14:10 04/06/23 14:10 Temperature Pulse Rate 61 Respiratory Rate 19 Blood Pressure 100/56 L 109/56 L Pulse Oximetry 99 Oxygen Delivery Method Oxygen Flow Rate 04/06/23 14:20 04/06/23 14:20 04/06/23 14:30 Temperature Pulse Rate 60 Respiratory Rate 19 Blood Pressure 107/62 103/69 Pulse Oximetry 99 Oxygen Delivery Method Oxygen Flow Rate 04/06/23 14:30 04/06/23 14:40 04/06/23 14:40 Temperature Pulse Rate 60 Respiratory Rate 18 19 Blood Pressure 120/61 Pulse Oximetry 95 Oxygen Delivery Method Oxygen Flow Rate 04/06/23 14:50 04/06/23 14:50 Temperature Pulse Rate 60 Respiratory Rate 23 Blood Pressure 133/60 Pulse Oximetry 96 Oxygen Delivery Method Oxygen Flow Rate MDM - SOB/Dyspnea <Bo Rodrigues PA-C - Last Filed: 04/06/23 15:27> Lab Data 04/07/23 04:25 04/07/23 04:25 Labs: Lab Results 04/06/23 04/06/23 Range/Units 10:59 12:00 WBC 5.6 (4.5-11.0) X10^3/uL RBC 3.15 L (4.5-5.9) X10^6/uL Hgb 10.7 L (13.5-17.5) g/dL Hct 31.6 L (41-53) % MCV 100.4 H (80-100) fL MCH 34.1 H (26-34) PG MCHC 33.9 (30-36) % RDW 15.9 H (11.6-14.8) % Plt Count 169 (150-400) X10^3/uL Neut % (Auto) 75.3 H (50-75) % Lymph % (Auto) 9.3 L (25-40) % [place] % (Auto) 7.4 (3-14) % Eos % (Auto) 6.7 H (2-4) % Baso % (Auto) 1.3 (0-2) % Neut # (Auto) 4200 (9238-4050) /uL Lymph # (Auto) 500 L (3610-9809) /uL [place] # (Auto) 400 (0-900) /uL Eos # (Auto) 400 (0-450) /uL Baso # (Auto) 100 (0-100) /uL PT 22.6 H (10.1-12.7) SECONDS INR 2.0 H (0.9-1.3) Sodium 133 L (137-145) mmol/L Potassium 3.8 (3.4-5.1) mmol/L Chloride 101 (98-107) mmol/L Carbon Dioxide 29 (22-32) mmol/L BUN 9 (9-20) mg/dL Creatinine 0.91 (0.66-1.25) mg/dL Estimated GFR > 60 (>60) mL/min BUN/Creatinine Ratio 9.9 (6-22) Glucose 90 (80-110) mg/dL Lactate 1.2 (0.7-2.1) mmol/L Calcium 8.5 (8.4-10.2) mg/dL Total Bilirubin 0.6 (0.2-1.3) mg/dL AST 31 (17-59) IU/L ALT 21 (<50) IU/L Alkaline Phosphatase 57 (38-126) U/L Troponin I 0.020 (0.01-0.034) ng/mL NT-Pro-B Natriuret Pep 5640 H (<450) pg/mL Total Protein 5.3 L (6.3-8.2) g/dL Albumin 3.4 L (3.5-5.0) g/dL Globulin 1.9 (1.7-4.1) g/dL Albumin/Globulin Ratio 1.8 (1.0-2.8) SARS-CoV-2 (PCR) Negative (Negative) Influenza A (RT-PCR) Flu a negative (NEGATIVE) Influenza B (RT-PCR) Flu b negative (NEGATIVE) RSV (PCR) Negative (Negative) Urine Dip Bedside Urine Glucose Negative Bedside Urine Bilirubin - Negative Bedside Urine Ketone - Negative Urine Specific Mark 1.015 Bedside Urine Occult Blood - Negative Bedside Urine pH 6.0 Bedside Urine Protein - Negative Bedside Urine Urobilinogen - Negative Bedside Urine Nitrite - Negative Bedside Urine Leukocytes - Negative Esterase Imaging Data Chest x-ray: Radiologist's Impression: [address] [address] XRay Report Signed Patient: Dameon Coulter MR#: [id number] : 1940 Acct:[id number] Age/Sex: 82 / M Date of Service: 04/06/23 Loc: ED Accession Number: [id number] Procedure: XR chest 1V Ordering Provider: Sabrina Sheldon D.O. PROCEDURE: XR CHEST 1V INDICATIONS: Shortness of breath TECHNIQUE: One view of the chest was acquired. COMPARISON: [facility], , XR CHEST 1V, 09/04/2022, 20:49. FINDINGS: Surgical changes and devices: Left-sided pacer. Lungs and pleura: There is mild diffuse reticulonodular pulmonary opacity. Moderate bibasilar airspace opacity. Small bilateral pleural effusions. No pneumothoraces. Mediastinum: Mediastinal contours appear normal. Heart size is normal. Bones and chest wall: No suspicious bony lesions. Overlying soft tissues appear unremarkable. IMPRESSION: 1. Mild diffuse atypical pneumonia versus edema. 2. Bibasilar atelectasis versus pneumonia. Continued plain film surveillance is recommended to ensure resolution, and to exclude underlying or central malignancy. 3. Small bilateral pleural effusions. Dictated by: Tomi Duong M.D. on 04/06/2023 at 11:29 Approved by: Tomi Duong M.D. on 04/06/2023 at 11:30 ECG Data Interpretation: EKG is normal sinus rhythm rate 60 beats per minute and free of any signs of ischemia or ectopy. No ST segmental elevation or depression. No T wave inversions. AV dual paced rhythm MDM Narrative Medical decision making narrative: MDM * differential diagnosis includes but not limited to CHF exacerbation, pneumonia, asthma exacerbation, PE * Prior records reviewed: Patient was seen here 2 weeks ago due to nausea, vomiting, diarrhea. History of AFib on Coumadin, CHF, pacemaker, multiple myeloma myeloma, receiving chemotherapy with Dr. damon. Patient states that he was supposed to be stopping his came therapy as it has been affecting his quality of life. Allergic to sulfa. History of hypothyroidism. CT abdomen and pelvis was ordered which showed a No focal lytic lesions are seen within the bones to suggest multiple myeloma There are small bilateral pleural effusions. There is moderate cardiomegaly. A small pericardial effusion is seen. Additional findings: Small hiatal hernia Simple liver cyst Layering gallstones Simple left renal cysts Fat containing periumbilical hernia Stable L1 anterior wedge deformity Normal appendix Diverticulosis, without active diverticulitis Prominent prostate Right femoral neck hardware Fat containing right inguinal hernia Patient was given Zofran, fluids, oral potassium for supplementation. Patient felt much better and was discharged. Dr. Arreola of General surgery was also consulted who recommended adding Protonix due to reported black stools. * My lab interpretation: Lab work remarkable for mild hyponatremia of 133 although not presenting with a significant symptoms concerning for this. Lactate within normal limits. CBC showed no evidence of leukocytosis, patient was anemic with a hemoglobin of 10.7 although this is chronic for the patient. * My imgaing interpretation: Chest x-ray impression showed mild diffuse atypical pneumonia versus edema. Suspected edema as no leukocytosis and patient afebrile. * Clinical Decision Rules/Scores evaluated: None * Independent discussions with: None ED Course: This is a 82-year-old male presents emergency department due to a week history worsening shortness of breath. History of AFib on Coumadin, CHF, pacemaker, multiple myeloma being managed by Dr. Damon. Patient's shortness of breath suspect to be due to fluid overload as he did have 1+ pitting edema bilaterally as well as findings concerning for this on chest x-ray. Chest x-ray also did mention the possibility of pneumonia but patient has not had any fevers or leukocytosis and lower concern for this. Patient states that he has been told to take spironolactone as needed due to his chronically low blood pressure but he is not been taking any of this recently. Patient was initially placed on 2 L via nasal cannula. He was given 40 mg of Lasix which significantly helped improve his shortness of breath. He was O2 was eventually able to be weaned off. When attempting to have the patient should transfer from the bed to the wheelchair he was weaker than baseline at unable to effectively move to the wheelchair. This was discussed with Dr. Mckeon who kindly accepted the patient for admission. Daughter was informed who is also patient's [id number] [phone]. Lab work showed no significant abnormalities. EKG, troponin within normal limits. CBC showed mild anemia which seems baseline for the patient. Also showed mild hyponatremia of 133. Shared Decision Making: Discussed plan with the patient who is comfortable with the plan. Social Considerations: None Disposition: Admitted inpatient <Sabrina Sheldon DO - Last Filed: 04/08/23 00:02> Lab Data Labs: Lab Results 04/06/23 04/06/23 Range/Units 10:59 12:00 WBC 5.6 (4.5-11.0) X10^3/uL RBC 3.15 L (4.5-5.9) X10^6/uL Hgb 10.7 L (13.5-17.5) g/dL Hct 31.6 L (41-53) % MCV 100.4 H (80-100) fL MCH 34.1 H (26-34) PG MCHC 33.9 (30-36) % RDW 15.9 H (11.6-14.8) % Plt Count 169 (150-400) X10^3/uL Neut % (Auto) 75.3 H (50-75) % Lymph % (Auto) 9.3 L (25-40) % [place] % (Auto) 7.4 (3-14) % Eos % (Auto) 6.7 H (2-4) % Baso % (Auto) 1.3 (0-2) % Neut # (Auto) 4200 (4702-0937) /uL Lymph # (Auto) 500 L (8008-1522) /uL [place] # (Auto) 400 (0-900) /uL Eos # (Auto) 400 (0-450) /uL Baso # (Auto) 100 (0-100) /uL PT 22.6 H (10.1-12.7) SECONDS INR 2.0 H (0.9-1.3) Sodium 133 L (137-145) mmol/L Potassium 3.8 (3.4-5.1) mmol/L Chloride 101 (98-107) mmol/L Carbon Dioxide 29 (22-32) mmol/L BUN 9 (9-20) mg/dL Creatinine 0.91 (0.66-1.25) mg/dL Estimated GFR > 60 (>60) mL/min BUN/Creatinine Ratio 9.9 (6-22) Glucose 90 (80-110) mg/dL Lactate 1.2 (0.7-2.1) mmol/L Calcium 8.5 (8.4-10.2) mg/dL Total Bilirubin 0.6 (0.2-1.3) mg/dL AST 31 (17-59) IU/L ALT 21 (<50) IU/L Alkaline Phosphatase 57 (38-126) U/L Troponin I 0.020 (0.01-0.034) ng/mL NT-Pro-B Natriuret Pep 5640 H (<450) pg/mL Total Protein 5.3 L (6.3-8.2) g/dL Albumin 3.4 L (3.5-5.0) g/dL Globulin 1.9 (1.7-4.1) g/dL Albumin/Globulin Ratio 1.8 (1.0-2.8) SARS-CoV-2 (PCR) Negative (Negative) Influenza A (RT-PCR) Flu a negative (NEGATIVE) Influenza B (RT-PCR) Flu b negative (NEGATIVE) RSV (PCR) Negative (Negative) Urine Dip Bedside Urine Glucose Negative Bedside Urine Bilirubin - Negative Bedside Urine Ketone - Negative Urine Specific Mark 1.015 Bedside Urine Occult Blood - Negative Bedside Urine pH 6.0 Bedside Urine Protein - Negative Bedside Urine Urobilinogen - Negative Bedside Urine Nitrite - Negative Bedside Urine Leukocytes - Negative Esterase ECG Data Interpretation: EKG is normal sinus rhythm rate 60 beats per minute and free of any signs of ischemia or ectopy. No ST segmental elevation or depression. No T wave inversions. AV dual paced rhythm [place] wide complex paced rhythm rate 60 similar to previous EKG in March 2023 MDM Narrative Medical decision making narrative: MDM * differential diagnosis includes but not limited to CHF exacerbation, pneumonia, asthma exacerbation, PE * Prior records reviewed: Patient was seen here 2 weeks ago due to nausea, vomiting, diarrhea. History of AFib on Coumadin, CHF, pacemaker, multiple myeloma myeloma, receiving chemotherapy with Dr. damon. Patient states that he was supposed to be stopping his came therapy as it has been affecting his quality of life. Allergic to sulfa. History of hypothyroidism. CT abdomen and pelvis was ordered which showed a No focal lytic lesions are seen within the bones to suggest multiple myeloma There are small bilateral pleural effusions. There is moderate cardiomegaly. A small pericardial effusion is seen. Additional findings: Small hiatal hernia Simple liver cyst Layering gallstones Simple left renal cysts Fat containing periumbilical hernia Stable L1 anterior wedge deformity Normal appendix Diverticulosis, without active diverticulitis Prominent prostate Right femoral neck hardware Fat containing right inguinal hernia Patient was given Zofran, fluids, oral potassium for supplementation. Patient felt much better and was discharged. Dr. Arreola of General surgery was also consulted who recommended adding Protonix due to reported black stools. * My lab interpretation: Lab work remarkable for mild hyponatremia of 133 although not presenting with a significant symptoms concerning for this. Lactate within normal limits. CBC showed no evidence of leukocytosis, patient was anemic with a hemoglobin of 10.7 although this is chronic for the patient. * My imgaing interpretation: Chest x-ray impression showed mild diffuse atypical pneumonia versus edema. Suspected edema as no leukocytosis and patient afebrile. * Clinical Decision Rules/Scores evaluated: None * Independent discussions with: None ED Course: This is a 82-year-old male presents emergency department due to a week history worsening shortness of breath. History of AFib on Coumadin, CHF, pacemaker, multiple myeloma being managed by Dr. Damon. Patient's shortness of breath suspect to be due to fluid overload as he did have 1+ pitting edema bilaterally as well as findings concerning for this on chest x-ray. Chest x-ray also did mention the possibility of pneumonia but patient has not had any fevers or leukocytosis and lower concern for this. Patient states that he has been told to take spironolactone as needed due to his chronically low blood pressure but he is not been taking any of this recently. Patient was initially placed on 2 L via nasal cannula. He was given 40 mg of Lasix which significantly helped improve his shortness of breath. He was O2 was eventually able to be weaned off. When attempting to have the patient should transfer from the bed to the wheelchair he was weaker than baseline at unable to effectively move to the wheelchair. This was discussed with Dr. Mckeon who kindly accepted the patient for admission. Daughter was informed who is also patient's [id number] [phone]. Lab work showed no significant abnormalities. EKG, troponin within normal limits. CBC showed mild anemia which seems baseline for the patient. Also showed mild hyponatremia of 133. Shared Decision Making: Discussed plan with the patient who is comfortable with the plan. Social Considerations: None Disposition: Admitted inpatient Dr. Field saw and evaluated patient myself. He does some tachypnea requiring 1 or 2 L of oxygen. He was given Lasix urinated some however did very poorly with ambulation. Blood pressure is soft but maintaining inappropriate map. Little change with Lasix. 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 Discharge Plan Departure Patient Disposition: Admitted As Inpatient Clinical Impression: CHF exacerbation Admit Date/Time: 04/06/23 15:19 Admit Provider: Amara Queen
[2023-04-06 12:08] LABS: Add Manual Diff / Slide Review NO; Basophils Absolute Auto 100 /uL (0-100); Basophils Percent Auto 1.3 % (0-2); Eosinophils Absolute Auto 400 /uL (0-450); Eosinophils Percent Auto 6.7 % (2-4); Hematocrit 31.6 % (41-53); Hemoglobin 10.7 g/dL (13.5-17.5); Lymphocytes Absolute Auto 500 /uL (1100-4500); Lymphocytes Percent Auto 9.3 % (25-40); Mean Corpuscular HGB Conc 33.9 % (30-36); Mean Corpuscular Hemoglobin 34.1 PG (26-34); Mean Corpuscular Volume 100.4 fL (80-100); Monocytes Absolute Auto 400 /uL (0-900); Monocytes Percent Auto 7.4 % (3-14); Neutrophils Absolute Auto 4200 /uL (1500-7000); Neutrophils Percent Auto 75.3 % (50-75); Platelet Count 169 X10^3/uL (150-400); Red Blood Cell Count 3.15 X10^6/uL (4.5-5.9); Red Cell Distribution Width 15.9 % (11.6-14.8); White Blood Cell Count 5.6 X10^3/uL (4.5-11.0)
[2023-04-06 12:14] LABS: Prothrombin Time 22.6 SECONDS (10.1-12.7)
[2023-04-06 12:20] LABS: Alanine Aminotransferase 21 IU/L (<50); Albumin 3.4 g/dL (3.5-5.0); Albumin Globulin Ratio 1.8 (1.0-2.8); Alkaline Phosphatase 57 U/L (38-126); Aspartate Aminotransferase 31 IU/L (17-59); BUN Creatinine Ratio 9.9 (6-22); Bilirubin Total 0.6 mg/dL (0.2-1.3); Blood Urea Nitrogen 9 mg/dL (9-20); Calcium 8.5 mg/dL (8.4-10.2); Carbon Dioxide 29 mmol/L (22-32); Chloride 101 mmol/L (98-107); Estimated Glomerular Filt Rate > 60 mL/min (>60); Globulin 1.9 g/dL (1.7-4.1); Glucose 90 mg/dL (80-110); HEMOLYSIS < 15 (0-50); Lactate (Lactic Acid) 1.2 mmol/L (0.7-2.1); Potassium 3.8 mmol/L (3.4-5.1); Sodium 133 mmol/L (137-145); Total Protein 5.3 g/dL (6.3-8.2)
[2023-04-06] MEDS: FUROSEMIDE 40 MG/4 ML VIAL 20 MG IV ×2 (12:30→13:56)
[2023-04-06 12:32] LABS: NT-proBNP (BNP-Adult 18+) 5640 pg/mL (<450)
--- NOTE | 2023-04-06 15:55 | P.HP_ITS ---
History of Present Illness History of Present Illness Chief complaint: ASTHMA Narrative: Dameon Coulter is an 82-year-old male presents emergency department due to a one-week history of shortness of breath. He states that it began with the changing of the seasons. He states that he has a history of chronic heart failure only takes spironolactone as needed as recommended by his primary care physician's due to his chronically ?low blood pressure ?. He denies any chest pain, cough, nausea, vomiting, URI symptoms, fevers, or any other concerning signs or symptoms. Does state he has a chronic history of lower extremity edema, worse on the right after breaking his femur a couple of years ago. [facility] Medical History Hypothyroidism (acquired) BPH (benign prostatic hyperplasia) Pacemaker Atrial fibrillation Hyperlipidemia Social History household members: children Smoking Status: Never smoker Meds Home Medications and Allergies Home Medications Medication Instructions Recorded Confirmed Type beclomethasone dipropionate 80 0.08 mg IH ##0 03/28/11 History mcg/actuation aerosol inhaler (Qvar) Syringes: 3ml Luer-Juan Syringe 25g ##0 03/06/12 History x 1 cyclobenzaprine 10 mg tablet 10 mg PO TID PRN muscle spasm #14 08/28/22 Rx tabs hydrocodone 5 mg-acetaminophen 325 1 tab PO Q4-6H PRN pain #10 tabs 08/28/22 Rx mg tablet omeprazole 40 mg capsule,delayed 40 mg PO DAILY #30 caps 03/17/23 Rx release Allergies Allergy/AdvReac Type Severity Reaction Status Date / Time Sulfa (Sulfonamide Allergy Severe HIVES, Verified 04/06/23 10:54 Antibiotics) BREATHING PROBLEMS prednisone Allergy Unknown UNKNOWN Verified 04/06/23 10:54 Review of Systems Review of Systems Narrative: GENERAL: Denies chills, fatigue, malaise, fever, sweats. HEENT: Denies sinus pain, ear pain, sore throat, difficulty swallowing, dizziness. RESPIRATORY: Reports shortness of breath, denies, cough, wheezing, hemoptysis, sputum. CARDIOVASCULAR: Denies chest pain, palpitations, orthopnea, but with chronic lower extremity edema, GASTROINTESTINAL: Denies nausea, vomiting, abdominal pain, diarrhea, constipation, melena. : Denies dysuria, frequency, incontinence, hematuria, urinary retention. MUSCULOSKELETAL: denies weakness, joint pain, or bony pain SKIN: Denies rash, skin lesions, or other NEUROLOGIC: Denies weakness, headache, numbness, change in speech, confusion, seizures, incoordination. PSYCHIATRIC: No concerning psychosocial issues. Exam Vital Signs (past 8 hours): - 04/06/23 10:45 04/06/23 11:50 04/06/23 11:51 Temperature 98.4 F Pulse Rate 60 76 Respiratory Rate 20 Blood Pressure 101/50 L 91/60 Pulse Oximetry 98 94 Oxygen Delivery Method Room Air Oxygen Flow Rate 04/06/23 11:51 04/06/23 11:55 04/06/23 11:55 Temperature Pulse Rate 64 60 Respiratory Rate 15 Blood Pressure 101/63 Pulse Oximetry 90 L 98 Oxygen Delivery Method Room Air Nasal Cannula Oxygen Flow Rate 2 04/06/23 12:00 04/06/23 12:00 04/06/23 12:10 Temperature Pulse Rate 60 Respiratory Rate 16 Blood Pressure 104/57 L 92/55 L Pulse Oximetry 99 Oxygen Delivery Method Nasal Cannula Oxygen Flow Rate 2 04/06/23 12:10 04/06/23 12:21 04/06/23 12:21 Temperature Pulse Rate 63 60 Respiratory Rate 20 18 Blood Pressure 111/67 Pulse Oximetry 100 100 Oxygen Delivery Method Nasal Cannula Nasal Cannula Oxygen Flow Rate 2 2 04/06/23 12:30 04/06/23 12:30 04/06/23 12:35 Temperature Pulse Rate 60 Respiratory Rate 17 Blood Pressure 102/59 L 101/63 Pulse Oximetry 98 Oxygen Delivery Method Nasal Cannula Oxygen Flow Rate 2 04/06/23 12:35 04/06/23 12:41 04/06/23 12:41 Temperature Pulse Rate 60 62 Respiratory Rate 16 21 Blood Pressure 97/59 L Pulse Oximetry 99 99 Oxygen Delivery Method Nasal Cannula Nasal Cannula Oxygen Flow Rate 2 2 04/06/23 12:46 04/06/23 12:46 04/06/23 12:50 Temperature Pulse Rate 60 Respiratory Rate 18 Blood Pressure 122/57 L 109/59 L Pulse Oximetry 98 Oxygen Delivery Method Nasal Cannula Oxygen Flow Rate 2 04/06/23 12:50 04/06/23 13:00 04/06/23 13:00 Temperature Pulse Rate 60 60 Respiratory Rate 17 18 Blood Pressure 111/70 Pulse Oximetry 98 99 Oxygen Delivery Method Nasal Cannula Nasal Cannula Oxygen Flow Rate 2 2 04/06/23 13:11 04/06/23 13:11 04/06/23 13:30 Temperature Pulse Rate 60 Respiratory Rate 17 Blood Pressure 116/57 L 103/67 Pulse Oximetry 99 Oxygen Delivery Method Oxygen Flow Rate 04/06/23 13:30 04/06/23 13:40 04/06/23 13:40 Temperature Pulse Rate 61 60 Respiratory Rate 18 21 Blood Pressure 105/59 L Pulse Oximetry 99 Oxygen Delivery Method Oxygen Flow Rate 04/06/23 13:50 04/06/23 13:50 04/06/23 14:00 Temperature Pulse Rate 60 Respiratory Rate 23 22 Blood Pressure 112/66 Pulse Oximetry 98 Oxygen Delivery Method Oxygen Flow Rate 04/06/23 14:01 04/06/23 14:10 04/06/23 14:10 Temperature Pulse Rate 61 Respiratory Rate 19 Blood Pressure 100/56 L 109/56 L Pulse Oximetry 99 Oxygen Delivery Method Oxygen Flow Rate 04/06/23 14:20 04/06/23 14:20 04/06/23 14:30 Temperature Pulse Rate 60 Respiratory Rate 19 Blood Pressure 107/62 103/69 Pulse Oximetry 99 Oxygen Delivery Method Oxygen Flow Rate 04/06/23 14:30 04/06/23 14:40 04/06/23 14:40 Temperature Pulse Rate 60 Respiratory Rate 18 19 Blood Pressure 120/61 Pulse Oximetry 95 Oxygen Delivery Method Oxygen Flow Rate 04/06/23 14:50 04/06/23 14:50 04/06/23 15:00 Temperature Pulse Rate 60 60 Respiratory Rate 23 22 Blood Pressure 133/60 Pulse Oximetry 96 95 Oxygen Delivery Method Oxygen Flow Rate 04/06/23 15:00 04/06/23 15:20 04/06/23 15:20 Temperature Pulse Rate 60 Respiratory Rate 18 Blood Pressure 99/54 L 108/70 Pulse Oximetry 96 Oxygen Delivery Method Room Air Oxygen Flow Rate Oxygen Delivery Method Room Air Oxygen Flow Rate 2 Narrative Exam Narrative: GENERAL: Well-developed patient, in no acute medical distress at the time of my examination. HEAD: Atraumatic. Normocephalic. EYES: Pupils equal round and reactive. Extraocular motions intact. No scleral icterus. No injection or drainage. ENT: Nose without bleeding, purulent drainage. Throat without erythema, tonsillar hypertrophy or exudate. Airway patent. NECK: Trachea midline. Non tender CARDIOVASCULAR: Regular rate and rhythm without murmurs, gallops, or rubs. RESPIRATORY: No wheezing, some intermittent rhonchi to bilateral lung hernández GASTROINTESTINAL: Abdomen soft, non-tender, nondistended. EXTREMITIES: 1+ pitting edema to bilateral lower extremities BACK: Nontender without deformity or crepitance. No flank tenderness. NEURO: AOx3. SKIN: No rash or erythema of visible areas Objective Labs 04/06/23 12:00 04/06/23 12:00 Labs: Laboratory Results - last 24 hr 04/06/23 04/06/23 10:59 12:00 WBC 5.6 RBC 3.15 L Hgb 10.7 L Hct 31.6 L MCV 100.4 H MCH 34.1 H MCHC 33.9 RDW 15.9 H Plt Count 169 Neut % (Auto) 75.3 H Lymph % (Auto) 9.3 L [place] % (Auto) 7.4 Eos % (Auto) 6.7 H Baso % (Auto) 1.3 Neut # (Auto) 4200 Lymph # (Auto) 500 L [place] # (Auto) 400 Eos # (Auto) 400 Baso # (Auto) 100 PT 22.6 H INR 2.0 H Sodium 133 L Potassium 3.8 Chloride 101 Carbon Dioxide 29 BUN 9 Creatinine 0.91 Estimated GFR > 60 BUN/Creatinine Ratio 9.9 Glucose 90 Lactate 1.2 Calcium 8.5 Total Bilirubin 0.6 AST 31 ALT 21 Alkaline Phosphatase 57 Troponin I 0.020 NT-Pro-B Natriuret Pep 5640 H Total Protein 5.3 L Albumin 3.4 L Globulin 1.9 Albumin/Globulin Ratio 1.8 SARS-CoV-2 (PCR) Negative Influenza A (RT-PCR) Flu a negative Influenza B (RT-PCR) Flu b negative RSV (PCR) Negative
--- NOTE | 2023-04-06 16:06 | DI.ECHO.S_ITS ---
[facility]---------+ [facility] +---------+ : : [address] : : : : [id number] : : : : Phone: [phone]+ Echocardiogram Report + + :Name: ROSEANN PATTERSON Study Date: 04/07/2023 Height: 71 in : :[facility] ReadingLocation: Weight: 195 lb : : Gender: Male BSA: 2.1 m2 : :: 1940 Age: 82 yrs BP: 110/59 mmHg: :Reason For Study: CONGESTIVE HEART FAILURE : :Ordering Physician: NICOLAS, : :STEVEN Performed By: Ayleen Llanes : :Referring: STEVEN VALENZUELA MD : + + Interpretation Summary Sinus rhythm with wide QRS complexes. Mildly dilated LV size and normal wall thickness. Severe global hypokinesis with ejection fraction with EF 20-25%. EPSS is 2.7 consistent with cardiomyopathy. Moderate bilateral atrial enlargement. Mild aortic regurgitation in the setting of moderately dilated root measuring 4.6 cm in diameter. Severe eccentric posterolaterally directed mitral regurgitation with pulmonary vein flow reversal. Moderate central tricuspid regurgitation in the setting of a pacing lead traversing the tricuspid valve.. PA systolic pressure estimated at 32 mm Hg. Moderate left pleural effusion. Compared to prior study obtained October 20, 2020, cardiomyopathy is new. Mitral regurgitation is new. LV end-diastolic dimension is up from 5.7 cm to 6.1 cm. Pleural effusion is new. Wide QRS complexes are new. EPSS is up from 1.3 cm to 2.7 cm. Procedure: A two-dimensional transthoracic echocardiogram with color flow and Doppler was performed. The study quality was technically adequate. Comparison is made with the echocardiogram of 10/20/2020. The heart rate ranged between 59-63 bpm during the study. Left Ventricle: The left ventricle is mild-moderately dilated. The ejection fraction is estimated to be 20-25%. Diastolic function could not be accurately assessed due to paced rhythm. Right Ventricle: There is a pacemaker lead in the right ventricle. The right ventricle is mildly dilated. Right ventricular systolic function is at the lower limits of normal. Atria: The left atrium is mildly dilated. The right atrium is moderately dilated. There is no Doppler evidence for an interatrial shunt. Mitral Valve: The mitral valve leaflets appear mildly thickened, but open well. There is severe mitral regurgitation. Aortic Valve: The aortic valve opens well. There is no aortic valve stenosis. There is mild aortic regurgitation. Tricuspid Valve: The tricuspid valve leaflets are thin and pliable. There is moderate tricuspid regurgitation. The right ventricular systolic pressure is estimated to be at least 32 mmHg based on an estimated right atrial pressure of 3 mm Hg. Pulmonic Valve: The pulmonic valve is not well visualized. Great Vessels: The aortic root is moderately dilated. The ascending aorta could not be visualized. The IVC is of normal diameter and collapses greater than 50% with a sniff. This suggests a low right atrial pressure of 3 mm Hg. Pericardium/ Pleura There is no pericardial effusion. There is a moderate left-sided pleural effusion. MMode/2D Measurements & Calculations LVIDd: 6.1 cm LVOT diam: 2.6 cm LVIDs: 5.3 cm Ao root diam: 4.6 cm FS: 12.3 % Ao Arch Diam (Prox Trans): 2.9 cm EPSS: 2.7 cm IVSd: 0.83 cm LVPWd: 0.77 cm LV pleitez. diameter/BSA (cm/m^2): 2.9 LV sys. diameter/BSA (cm/m^2): 2.5 LA A2 area: 22.8 cm2 RA long axis: 5.7 cm LA A4 area: 29.0 cm2 RA area: 25.9 cm2 LA length (vol): 6.4 cm RA vol: 99.6 ml LA vol: 88.6 ml RA : 47.7 ml/m2 LA vol index: 42.5 ml/m2 IVC diam: 1.5 cm RVD1 (basal): 5.2 cm TAPSE: 1.8 cm Doppler Measurements & Calculations Ao V2 max: 117.5 cm/sec LVOT Max Hemanth: 45.6 cm/sec Ao V2 mean: 76.1 cm/sec LV V1 max P.83 mmHg Ao max P.5 mmHg LV V1 VTI: 9.8 cm Ao mean P.7 mmHg GARRICK(I,D): 2.2 cm2 Ao V2 VTI: 22.6 cm GARRICK(V,D): 2.0 cm2 sev ratio: 0.43 GARRICK indexed to BSA (cm^2/m^2): 1.1 AI P1/2t: 702.3 msec AI dec slope: 116.4 cm/sec2 MV E max hemanth: 62.4 cm/sec TR max hemanth: 270.4 cm/sec MV A max hemanth: 38.4 cm/sec TR max P.2 mmHg MV E/A: 1.6 MV dec time: 0.30 sec MR ERO: 0.37 cm2 MR PISA: 4.2 cm2 SV(LVOT): 50.2 ml MR flow rate: 166.0 cm3/sec MR PISA radius: 0.82 cm Electronically signed by: Amanda Ash M.D. on Reading Physician:04/07/2023 02:37 PM
[2023-04-06] MEDS: valACYclovir 500 MG TABLET PO (20:05)
[2023-04-06] MEDS: APIXABAN 5 MG TABLET PO (20:05)
[2023-04-06] MEDS: ATORVASTATIN 20 MG TABLET PO (20:05)
[2023-04-06] MEDS: MIDODRINE HCL 5 MG TABLET PO (20:05)
[2023-04-06] MEDS: FUROSEMIDE 40 MG/4 ML VIAL IV (23:52)
[2023-04-06] MEDS: SODIUM CHLORIDE 0.9% FLUSH 10 ML IV (23:53)
[2023-04-07] VITALS (8 sets, daily range): BP systolic 92–110; BP diastolic 46–59; PULSE 58–61; RESP 16–22; TEMP 35.8–36.3; O2SAT 93–96
[2023-04-07 04:47] LABS: Add Manual Diff / Slide Review NO; Basophils Absolute Auto 100 /uL (0-100); Basophils Percent Auto 1.2 % (0-2); Eosinophils Absolute Auto 500 /uL (0-450); Hematocrit 32.6 % (41-53); Hemoglobin 11.1 g/dL (13.5-17.5); Lymphocytes Absolute Auto 700 /uL (1100-4500); Lymphocytes Percent Auto 9.9 % (25-40); Mean Corpuscular Hemoglobin 34.1 PG (26-34); Mean Corpuscular Volume 100.5 fL (80-100); Monocytes Absolute Auto 600 /uL (0-900); Neutrophils Absolute Auto 5100 /uL (1500-7000); Neutrophils Percent Auto 73.9 % (50-75); Platelet Count 193 X10^3/uL (150-400); Red Blood Cell Count 3.25 X10^6/uL (4.5-5.9); Red Cell Distribution Width 16.2 % (11.6-14.8); White Blood Cell Count 6.9 X10^3/uL (4.5-11.0)
[2023-04-07 05:03] LABS: Alanine Aminotransferase 20 IU/L (<50); Albumin 3.4 g/dL (3.5-5.0); Albumin Globulin Ratio 1.7 (1.0-2.8); Alkaline Phosphatase 69 U/L (38-126); Aspartate Aminotransferase 28 IU/L (17-59); BUN Creatinine Ratio 9.7 (6-22); Bilirubin Total 0.8 mg/dL (0.2-1.3); Blood Urea Nitrogen 10 mg/dL (9-20); Calcium 8.4 mg/dL (8.4-10.2); Carbon Dioxide 30 mmol/L (22-32); Chloride 98 mmol/L (98-107); Estimated Glomerular Filt Rate > 60 mL/min (>60); Glucose 90 mg/dL (80-110); HEMOLYSIS < 15 (0-50); Potassium 3.3 mmol/L (3.4-5.1); Sodium 135 mmol/L (137-145); Total Protein 5.4 g/dL (6.3-8.2)
[2023-04-07 05:04] LABS: Cholesterol 116 mg/dL (140-199); HDL Cholesterol 52 mg/dL (40-60); LDL Cholesterol Calculated 40 mg/dL (<100); Triglycerides 122 mg/dL (35-150)
[2023-04-07 05:22] LABS: Free T4, Direct Thyroxine 2.46 ng/dL (0.78-2.19)
[2023-04-07 05:36] LABS: Thyroid Stimulating Hormone 5.37 uIU/mL (0.47-4.68)
[2023-04-07 05:43] LABS: NT-proBNP (BNP-Adult 18+) 7260 pg/mL (<450)
[2023-04-07] MEDS: LEVOTHYROXINE 88 MCG TABLET PO (06:33)
[2023-04-07] MEDS: MIDODRINE HCL 5 MG TABLET PO (06:33)
[2023-04-07] MEDS: PANTOPRAZOLE DR 40 MG TABLET PO (06:33)
[2023-04-07 06:44] LABS: Free T3, Triiodothyronine Free 2.41 pg/mL (2.77-5.27)
[2023-04-07] MEDS: POTASSIUM CHLORIDE 20 MEQ TAB 40 MEQ PO ×2 (09:37→13:47)
[2023-04-07] MEDS: TAMSULOSIN 0.4 MG CAPSULE PO (09:38)
[2023-04-07] MEDS: buPROPion XL 150 MG TAB PO (09:38)
[2023-04-07] MEDS: valACYclovir 500 MG TABLET PO ×2 (09:38→20:02)
[2023-04-07] MEDS: APIXABAN 5 MG TABLET PO ×2 (09:38→20:01)
[2023-04-07] MEDS: ESCITALOPRAM 10 MG TABLET 20 MG PO (09:38)
[2023-04-07] MEDS: AMIODARONE 200 MG TABLET PO (09:38)
[2023-04-07] MEDS: METOPROLOL ER 25 MG TABLET PO (09:41)
--- NOTE | 2023-04-07 11:39 | PC.NURSE ---
Pt A&Ox4, mumbling on waking but alert with conversation. Pt falling asleep at frequent intervals. SBP in 90s at 11:40, Dr. De Leon notified, Lasix held and meds altered (see MAR). Pt able to stand and walk short distances with FWW but needs to sit after standing for a short while. Large, loose, explosive BM in a.m. Pt pale; R inguinal wound red, inflamed; gluteal cleft/medial buttocks dark red; reinforced teaching to patient about importance of turning to either side, staying off buttocks where possible.
[2023-04-07] MEDS: MIDODRINE HCL 5 MG TABLET 10 MG PO ×2 (12:27→17:36)
--- NOTE | 2023-04-07 12:49 | P.PN_ITS ---
Subjective Subjective Date Patient Seen: 04/07/23 Interval history: Patient feeling better, still adjusting medication for diuresis and BP to get good balance. Daughter present and she has expressed concern that patient is too much as far as care for being at home. Would like to discuss with Social Work as to her options. Will make the referral. Patient has little or no pedal edema but still some intermittent cough. Exam Vital Signs (past 8 hours): - 04/07/23 06:00 04/07/23 08:34 04/07/23 09:41 Temperature 96.6 F L Pulse Rate 58 L 61 60 Respiratory Rate 16 18 Blood Pressure 95/46 L 105/51 L 110/59 L Pulse Oximetry 94 93 Oxygen Flow Rate 0 04/07/23 12:00 Temperature 97.1 F L Pulse Rate 61 Respiratory Rate 18 Blood Pressure 96/57 L Pulse Oximetry 95 Oxygen Flow Rate 0 Oxygen Delivery Method Room Air Oxygen Flow Rate 0 Narrative Exam Narrative: GENERAL: Well-developed patient, in no acute medical distress HEAD: Atraumatic. Normocephalic. NECK: Trachea midline. Non tender CARDIOVASCULAR: Regular rate and rhythm without murmurs, gallops, or rubs. RESPIRATORY: No wheezing, some intermittent rhonchi to bilateral lung hernández, improving GASTROINTESTINAL: Abdomen soft, non-tender, nondistended. EXTREMITIES: No pitting edema to bilateral lower extremities BACK: Nontender without deformity or crepitance. No flank tenderness. NEURO: AOx3. However does appear memory and decision making is impaired SKIN: No rash or erythema of visible area Objective Labs 04/07/23 04:25 04/07/23 04:25 Labs: Laboratory Results - last 24 hr 04/07/23 04:25 WBC 6.9 RBC 3.25 L Hgb 11.1 L Hct 32.6 L MCV 100.5 H MCH 34.1 H MCHC 34.0 RDW 16.2 H Plt Count 193 Neut % (Auto) 73.9 Lymph % (Auto) 9.9 L [place] % (Auto) 8.0 Eos % (Auto) 7.0 H Baso % (Auto) 1.2 Neut # (Auto) 5100 Lymph # (Auto) 700 L [place] # (Auto) 600 Eos # (Auto) 500 H Baso # (Auto) 100 Sodium 135 L Potassium 3.3 L Chloride 98 Carbon Dioxide 30 BUN 10 Creatinine 1.03 Estimated GFR > 60 BUN/Creatinine Ratio 9.7 Glucose 90 Calcium 8.4 Total Bilirubin 0.8 AST 28 ALT 20 Alkaline Phosphatase 69 NT-Pro-B Natriuret Pep 7260 H Total Protein 5.4 L Albumin 3.4 L Globulin 2.0 Albumin/Globulin Ratio 1.7 Triglycerides 122 Cholesterol 116 L LDL Cholesterol, Calc 40 HDL Cholesterol 52 TSH 5.37 H Free T4 2.46 H Free T3 2.41 L PFSH Medical History Hypothyroidism (acquired) BPH (benign prostatic hyperplasia) Pacemaker Atrial fibrillation Hyperlipidemia Social History household members: children Smoking Status: Never smoker alcohol intake: current Assessment & Plan Assessment & Plan narrative: # CHF exacerbation POA, acute exacerbation - IV lasix 20 mg IV given twice in the ER with benefit but patient still not functional with activities of daily living - started lasix IV 40 q 12 h - follow BP and labs - will transition to oral lasix 40 mg BID with kcl supplement, follow labs including BNP # hypotension secondary to diuresis POA, on midodrine to help, the dose has been increased today, continue to monitor #hyponatremia POA, likely chronic with exacerbation, improved today -need to monitor with the use of diuresis, patient indicates he is on a low dose of diurectic due to low BP. Will initiate mididrone to help maintain BP # hypothyroid by history POA, chronic - no indication patient is on replacement - initially, test thyroid panel _ clairfied pt is on replacement, however, TSH high, Free T4 high aBUT Free T4 low - consistent with need to increase replacement, will increase to 100 mcg daily #atrial fibrillation with pacemaker POA, chronic - appears to not on anticoagulation but patient says he is, will find out the medication -clarified with daughter pt is on eliquis and that has been ordered # hyperlidipemia, by history POA, chronic not treated, test and evaluate need to treat -clarified with daughter is on atorvastatin 20 mg daily, and that has been ordered, lipid panel is good # multiple myeloma POA, chronic, patient indicates he is on treatment, will find out what it is - actually does not appear there is treatment # pacemaker in place POA, chronic CODE: DNR Surragate decision maker: daughter Bina Coulter DVT prophylaxis: patient says he is on a blood thinner, will start this when the medication is known.
--- NOTE | 2023-04-07 14:16 | CM.DANOTE ---
Addendum entered by Amada Hale R.N. 04/07/23 15:06: Yee Curran can be reached at [phone] Addendum entered by Amada Hale R.N. 04/07/23 14:50: CM team tasked by bedside RN to meet with patients yee Curran who has been caregiver. Bina states that she feels he will benefit from SNF and agrees,to either [facility] or [facility]. Original Note: Reviewed chart with existing information, and patient discussed in multidisciplinary rounds this morning. Met with patient and introduced to care coordination and discharge planning. They agree to assessment. Pt is a 82 year old admitted for CHF exacerbation and hyponatremia. Daughter Bina is at bedside and outlines that she came here from [place] to care for her dad post femur fracture in September, post SNF recovery, and with [facility], (DC?d from PT and now WC dependent). Patient acknowledges being very deconditioned but hopes to stay in his own home. PCP: Cely Hamilton DME: [facility] Payer: Jennifer BHATTI Barriers: Agrees to SNF level DC if indicated. [facility] [place] or [facility] Amada Hale RN, CM Discharge Planning/Care Management CM Discharge Assessment Start: 04/07/23 14:11 Freq: Status: Active Protocol: Document 04/07/23 14:12 BQ (Rec: 04/07/23 14:14 BQ [id number]) Discharge Planning Assessment Assigned Him Coder Amdaa Hale RN, CM DPOA/Assigned Designee Name Stated by yee Curran at bedside Advance Directives? No History Provided By Patient Has Patient been admitted in last 30 No days? Prior Living Arrangements House Household Members children Type of transporation used prior to Relies on Others admit Independent with ADL's No Is patient alert and oriented? Yes Needs Assistance With Bathing,Grooming,Meal Prep, Toileting,Managing Medications ,Home Chores / Shopping Caregiver for Another No Community Services used prior to Physical Therapy admission: DME Already Rented / Owned Wheelchair,FWW / Walker Patient/Family Preference [facility] Facility Barriers to Discharge Yes Comment Would like to return home, but severe deconditioning, dependent upon daughter Discharge Plan [facility] Facility Referrals Initiated [facility] If patient plan is SNF: Has PASSR been Yes completed? Medicare Choice List Provided Yes Medicare choice list reviewed on patient,family electronic tablet with Has Agency SNF been contacted Yes Whiteboard Updated in Patient Room with Yes name and ext. # of Him Coder Review Status In Process
[2023-04-07] MEDS: FUROSEMIDE 40 MG/4 ML VIAL 20 MG IV (16:14)
[2023-04-07] MEDS: FUROSEMIDE 40 MG TABLET PO (17:35)
[2023-04-07] MEDS: SODIUM CHLORIDE 0.9% FLUSH 10 ML IV (20:02)
[2023-04-07] MEDS: ATORVASTATIN 20 MG TABLET PO (20:02)
[2023-04-08 00:47] VITALS: BP 101/60; PULSE 66; RESP 16; TEMP 36.1; O2SAT 95
[2023-04-08 04:53] VITALS: BP 107/59; PULSE 60; RESP 18; TEMP 36.2; O2SAT 96
[2023-04-08 05:20] LABS: Add Manual Diff / Slide Review NO; Basophils Absolute Auto 100 /uL (0-100); Eosinophils Absolute Auto 300 /uL (0-450); Eosinophils Percent Auto 5.9 % (2-4); Hematocrit 31.8 % (41-53); Hemoglobin 10.9 g/dL (13.5-17.5); Lymphocytes Absolute Auto 900 /uL (1100-4500); Lymphocytes Percent Auto 15.8 % (25-40); Mean Corpuscular HGB Conc 34.3 % (30-36); Mean Corpuscular Hemoglobin 33.9 PG (26-34); Mean Corpuscular Volume 98.9 fL (80-100); Monocytes Absolute Auto 500 /uL (0-900); Monocytes Percent Auto 8.7 % (3-14); Neutrophils Absolute Auto 3700 /uL (1500-7000); Neutrophils Percent Auto 68.6 % (50-75); Platelet Count 164 X10^3/uL (150-400); Red Blood Cell Count 3.21 X10^6/uL (4.5-5.9); White Blood Cell Count 5.5 X10^3/uL (4.5-11.0)
[2023-04-08 05:36] LABS: Magnesium 1.7 mg/dL (1.6-2.3)
[2023-04-08 05:39] LABS: Alanine Aminotransferase 18 IU/L (<50); Albumin Globulin Ratio 1.5 (1.0-2.8); Alkaline Phosphatase 67 U/L (38-126); Aspartate Aminotransferase 27 IU/L (17-59); BUN Creatinine Ratio 9.8 (6-22); Bilirubin Total 0.5 mg/dL (0.2-1.3); Blood Urea Nitrogen 10 mg/dL (9-20); Calcium 8.3 mg/dL (8.4-10.2); Carbon Dioxide 30 mmol/L (22-32); Chloride 100 mmol/L (98-107); Estimated Glomerular Filt Rate > 60 mL/min (>60); Glucose 91 mg/dL (80-110); HEMOLYSIS < 15 (0-50); Potassium 3.5 mmol/L (3.4-5.1); Sodium 135 mmol/L (137-145)
[2023-04-08 05:45] LABS: NT-proBNP (BNP-Adult 18+) 8160 pg/mL (<450)
[2023-04-08] MEDS: LEVOTHYROXINE 100 MCG TABLET PO (06:02)
[2023-04-08] MEDS: PANTOPRAZOLE DR 40 MG TABLET PO (06:02)
[2023-04-08] MEDS: MIDODRINE HCL 5 MG TABLET 10 MG PO ×3 (06:03→18:07)
[2023-04-08] MEDS: AMIODARONE 200 MG TABLET 100 MG PO (08:28)
[2023-04-08] MEDS: POTASSIUM CHLORIDE 20 MEQ TAB PO (08:28)
[2023-04-08] MEDS: FUROSEMIDE 40 MG TABLET PO (08:28)
[2023-04-08] MEDS: ESCITALOPRAM 10 MG TABLET 20 MG PO (08:29)
[2023-04-08] MEDS: TAMSULOSIN 0.4 MG CAPSULE PO (08:29)
[2023-04-08] MEDS: APIXABAN 5 MG TABLET PO ×2 (08:29→21:47)
[2023-04-08] MEDS: SODIUM CHLORIDE 0.9% FLUSH 10 ML IV ×2 (08:29→21:17)
[2023-04-08] MEDS: valACYclovir 500 MG TABLET PO ×2 (08:29→21:47)
[2023-04-08] MEDS: buPROPion XL 150 MG TAB PO (08:29)
[2023-04-08 10:04] VITALS: BP 87/44; PULSE 60; RESP 18; TEMP 36.6; O2SAT 90
[2023-04-08 10:21] VITALS: BP 100/62
--- NOTE | 2023-04-08 11:09 | P.PN_ITS ---
Subjective Subjective Date Patient Seen: 04/08/23 Interval history: Patient says he feels fine but does have a persistent intermittent cough. No production, No leg swelling. Exam Vital Signs (past 8 hours): - 04/08/23 04:53 04/08/23 10:04 04/08/23 10:21 Temperature 97.2 F L 97.9 F Pulse Rate 60 60 Respiratory Rate 18 18 Blood Pressure 107/59 L 87/44 L 100/62 Pulse Oximetry 96 90 L Oxygen Flow Rate 0 0 Oxygen Delivery Method Room Air Oxygen Flow Rate 0 Narrative Exam Narrative: GENERAL: Well-developed patient, in no acute medical distress HEAD: Atraumatic. Normocephalic. NECK: Trachea midline. Non tender CARDIOVASCULAR: Regular rate and rhythm without murmurs, gallops, or rubs. Has fine crackles in lower third of lungs. RESPIRATORY: No wheezing GASTROINTESTINAL: Abdomen soft, non-tender, nondistended. EXTREMITIES: No pitting edema to bilateral lower extremities BACK: Nontender without deformity or crepitance. No flank tenderness. NEURO: AOx3. However does appear memory and decision making is impaired SKIN: No rash or erythema of visible area Objective Labs 04/08/23 05:07 04/08/23 05:07 Labs: Laboratory Results - last 24 hr 04/08/23 05:07 WBC 5.5 RBC 3.21 L Hgb 10.9 L Hct 31.8 L MCV 98.9 MCH 33.9 MCHC 34.3 RDW 16.0 H Plt Count 164 Neut % (Auto) 68.6 Lymph % (Auto) 15.8 L [place] % (Auto) 8.7 Eos % (Auto) 5.9 H Baso % (Auto) 1.0 Neut # (Auto) 3700 Lymph # (Auto) 900 L [place] # (Auto) 500 Eos # (Auto) 300 Baso # (Auto) 100 Sodium 135 L Potassium 3.5 Chloride 100 Carbon Dioxide 30 BUN 10 Creatinine 1.02 Estimated GFR > 60 BUN/Creatinine Ratio 9.8 Glucose 91 Calcium 8.3 L Magnesium 1.7 Total Bilirubin 0.5 AST 27 ALT 18 Alkaline Phosphatase 67 NT-Pro-B Natriuret Pep 8160 H Total Protein 5.0 L Albumin 3.0 L Globulin 2.0 Albumin/Globulin Ratio 1.5 [facility] Medical History Hypothyroidism (acquired) BPH (benign prostatic hyperplasia) Pacemaker Atrial fibrillation Hyperlipidemia Social History household members: children Smoking Status: Never smoker alcohol intake: current Assessment & Plan Assessment & Plan narrative: # CHF exacerbation POA, acute exacerbation - IV lasix 20 mg IV given twice in the ER with benefit but patient still not functional with activities of daily living - started lasix IV 40 q 12 h - follow BP and labs - will transition to oral lasix 40 mg BID with kcl supplement, follow labs including BNP - this was plan yesterday, need to increase diuresis- increse PO furosemide to 60 mg BID, increase KCL to 40 meq BID and give stat furosemide 20 mg IV Comment from Concrete Grinder Operator reading ECHO and documenting severe cardiomyopthy- patient should be off Metoprolol and off spironalactone and off any lisinopril which was on his record from before. Concrete Grinder Operator reading ECHO sent message to patient's Concrete Grinder Operator to have an urgent post discharge visit. # hypotension secondary to diuresis POA, on midodrine to help, the dose has been increased today, continue to monitor - midodrine is stablizing BP so diuresis can occur #hyponatremia POA, likely chronic with exacerbation, continue to monitor -need to monitor with the use of diuresis # hypothyroid by history POA, chronic - no indication patient is on replacement - initially, test thyroid panel _ clairfied pt is on replacement, however, TSH high, Free T4 high aBUT Free T4 low - consistent with need to increase replacement, will increase to 100 mcg daily #atrial fibrillation with pacemaker POA, chronic - Clarified with daughter pt is on eliquis and has been ordered # hyperlidipemia, by history -Clarified with daughter is on atorvastatin 20 mg daily, and that has been ordered, lipid panel is good # multiple myeloma POA, chronic, patient indicates he is on treatment, will find out what it is - actually does not appear there is treatment # pacemaker in place (per Concrete Grinder Operator reading ECHO - actually is also defibrillator and she left message for his Concrete Grinder Operator that the defib should be de-activiated if patient is DNR) POA, chronic Disposition: unclear if to home or assisted living. PLANT OPERATIONS ENGINEER and daughter are addressing. Patient being evaluated by OT/PT and with [facility]. CODE: DNR Surragate decision maker: daughter Bina Coulter DVT prophylaxis: on apixaban
[2023-04-08] MEDS: MAGNESIUM CHLORIDE 64 MG TABLET 128 MG PO (12:38)
[2023-04-08] MEDS: FUROSEMIDE 20 MG/2 ML VIAL IV ×2 (12:38→21:47)
--- NOTE | 2023-04-08 15:31 | CM.DPC ---
DCP Continued: DEALER DEVELOPMENT MANAGER reviewed EMR. Per team in rounds, patient has declined assisted living facility in past but likely would benefit from assisted living facility. From prior SNF at [facility], patient may no be appropriate for rehab due to not being rehabilitable. Speech or OT agree to complete UMS Ax. [facility]- spoke with [facility]. Likely can accept just need PT/OT notes. DEALER DEVELOPMENT MANAGER entered room and introduced self and role. Patient gave permission to speak with dtr Bina and TUNDE re: d/c plan. Dtr and TUNDE at bedside. Patient reports being open to SNF. Open to [facility]. Speech entered room to complete Ax. DEALER DEVELOPMENT MANAGER spoke with Dtr and TUNDE out in hallway. Dtr reports that she is concerned with the residential plan. Dtr reports that patient likely needs ASSISTED but refuses. Has used [facility] in past. Patient was at [facility] for 2 months before and hated it. Concerned out of Medicare days for SNF. Bina reports she is DPOA and will bring paperwork for our records tomorrow. Dtr says he's currently on Velcade every other Saturday for cancer treatment at [facility]. Dtr reports he has paused injection before and could likely pause injection while at SNF but will call oncologist to double check. DEALER DEVELOPMENT MANAGER informed dtr that as long as patient is cognitively able to make his own decisions, no one can force him to an ADALBERTO. Dtr reports her and TUNDE are moving in a month and a residential plan has to be reached by then. DEALER DEVELOPMENT MANAGER reported that if patient refuses everything, they can also make an APS report if they determine he is unsafe in the home and refuses care options they offer to assist him with. Plan: pending PT/OT/speech rec. Patient and dtr/DPOA preference appear to be SNF. CM team will continue to follow closely. KATHY Cameron
[2023-04-08 16:00] VITALS: BP 97/47; PULSE 60; RESP 16; TEMP 36.2; O2SAT 93
--- NOTE | 2023-04-08 16:32 | PT.IIE ---
Current Diagnoses Heart failure, unspecified (04/06/23) Medical History (Last Reviewed 04/06/23 @ 16:13 by Amara Queen MD) Atrial fibrillation BPH (benign prostatic hyperplasia) Hyperlipidemia Hypothyroidism (acquired) Pacemaker Physical Therapy Inpatient Evaluation/Re-Eval M1 PT/OT-IP Prior Functional Status Start: 04/08/23 16:03 Freq: NEEDED Status: Active Protocol: Document 04/08/23 16:32 AW (Rec: 04/08/23 17:01 AW [id number]) Medical Review Prior Functional Status Medical History Reviewed Yes Communication Pt is able to make his needs known Mobility and Gait Pt mobilizes primarily via wheelchair. He is able to stand pivot transfer with and without FWW without assist. He is able to propel his wheelchair using UE's. Activities of Daily Living and IADL's Independent with dressing and bathing. His daughter assists with higher level ADL's and driving. Prior Functional Level (Other details) History includes distal femur fracture in September 2022. He was evaluated at ED and transferred out. He discharged to SNF but did not make significant progress with PT. Social History Household Members children Living Arrangements House Number of Floors (Floors) One Floor Number of Stairs To Enter/Railing? Level entrance Home Environment Standard Height Toilet,Tub/ Shower Home Equipment Front Wheel Walker,Manual Wheelchair,Raised Toilet Seat Without Armrests,Tub Transfer Bench,Hand Held Shower,Grab Bars Near Toilet,Grab Bars In Shower Additional Social History Comment Pt lives with his daughter and her . M2 PT-IP Current Condition Start: 04/08/23 16:03 Freq: NEEDED Status: Active Protocol: Document 04/08/23 16:32 AW (Rec: 04/08/23 17:01 AW [id number]) Physical Therapy Current Condition Current Condition Evaluation Date 04/08/23 Treatment Diagnosis CHF exacerbation, hyponatremia ; impaired mobility and gait Onset Date 04/06/23 M3 PT-IP Subjective Start: 04/08/23 16:03 Freq: NEEDED Status: Active Protocol: Document 04/08/23 16:32 AW (Rec: 04/08/23 17:01 AW [id number]) Subjective Physical Therapy Visit Type Type Initial Evaluation Visit Start Time 16:05 Visit Stop Time 16:32 Total Visit Minutes 27 Physical Therapy Visit Comments Patient Comments Pt is willing to participate with PT Patient Goals Pt would like to be more ambulatory and to be more independent at home. Therapy Pain Assessment Pain When Pain Assessed During Mobility Pain Present Pain Present Pain Reported M4 PT-IP Mobility and Gait Start: 04/08/23 16:03 Freq: NEEDED Status: Active Protocol: Document 04/08/23 16:32 AW (Rec: 04/08/23 17:01 AW [id number]) PT-Bed Mobility Assessment Supine to Sit Supine to Sit Standby Assistance Sit to Supine Sit to Supine Standby Assistance PT-Transfer Assessment Sit to and From Stand Sit to and from Stand Minimal Assistance,Moderate Assistance,1 Person Assistance ,Use of Upper Extremities Equipment Transfer Assistive Device Gait Belt,Front Wheeled Walker Orthotic/Prosthetic Devices or Brace: No Transfers Transfer Destination Bed,Wheelchair Transfer Technique Stand Pivot Transfer Ability Level of Assist Contact Guard Assistance, Minimal Assistance,1 Person Assistance,Use of Upper Extremities Comments Mobility Comments Pt is found lying in bed, willing to work with PT. BP 94 /42 HR 63 (consistent with recorded VS during this hospital admission). SBA to sit up EOB. Pt describes his wheelchair transfer and sets up to transfer from the bed. Wheelchair is placed ~1 foot away facing pt. Pt ensures wheel locks are set before leaning forward and contacting w/c arms, turning himself 180 degrees with min assist. Pt's wheelchair is quite low and pt needs assist to keep from landing hard. He agrees to ambulate. Mod A to stand from low w/c. Pt uses FWW to ambulate 35 feet with CGA to min assist (for lateral LOB) as PT follows with wheelchair. Pt sits and propels his wheelchair back to bedside. Mod A again to stand and pivot transfer 90 degrees with FWW. VSS with persistent hypotension after mobility . Gait Assessment Gait Gait Assistance Required: Contact Guard Assist,Minimum Assistance Distance (Feet) 35 Assistive Devices Assistive Device Gait Belt,Front Wheeled Walker Orthotic/Prosthetic Devices or Brace: No Gait Deviations General Gait Pattern Antalgic,Decreased Stride Length,Decreased Feet Clearance,Narrow Based Gait Factors Limiting Gait Function Factors Limiting Gait Function Decreased Activity Tolerance, Decreased Strength,Poor Balance Comments Gait Comments See mobility comments for details. Stair Climbing Assessment Comments Stair Climbing Comments No stairs in home environment. PT-Balance Assessment Sitting Balance and Reactions Static Sitting Balance Ability Good Dynamic Sitting Balance Ability Good Standing Balance and Reactions Static Standing Balance Ability Fair Dynamic Standing Balance Ability Poor Device Used FWW M5 PT-IP Objective Assessments Start: 04/08/23 16:03 Freq: NEEDED Status: Active Protocol: Document 04/08/23 16:32 AW (Rec: 04/08/23 17:01 AW [id number]) Orientation Orientation/Cognition Level of Alertness Alert Orientation Name,Year,Day of Week,Place, Situation Language Function Ability No Deficits Noted Gross Range of Motion Lower Extremity ROM Assessment Within Functional Limits Strength Lower Extremity Strength Assessment Bilaterally Impaired Comments Strength Comments grossly 4-/5 BLE Sensation Assessment Sensation Gross Sensation WNL M6 PT-IP Treatment Start: 04/08/23 16:03 Freq: NEEDED Status: Active Protocol: Document 04/08/23 16:32 AW (Rec: 04/08/23 17:01 AW [id number]) Physical Therapy Treatment Education Education Provided Safety M7 PT-IP Assessment and Plan Start: 04/08/23 16:03 Freq: NEEDED Status: Active Protocol: Document 04/08/23 16:32 AW (Rec: 04/08/23 17:01 AW [id number]) PT Summary Assessment and Plan Potential Rehabilitation Potential Good Status of Condition at Evaluation Evolving Summary Impairments Strength,Balance,Bed Mobility, Transfers,Gait,Activity Tolerance Assessment Summary Dameon is an 82 yo man seen for PT evaluation during his hospital admission with CHF exacerbation and hyponatremia. PMH includes multiple myeloma , severe cardiomyopathy, atrial fibrillation s/p pacemaker, hyperlipidemia. PLOF: Since fracturing his distal femur earlier this year , pt has been mobilizing primarily with a manual wheelchair and transferring with and without device. He has been much less ambulatory since this injury. CLOF: Pt completes all bed mobility tasks with SBA but requires CGA to min assist for transfers and gait using FWW. PT recommends a taller wheelchair vs ROHO type cushion for easier sit to stand transitions. Based on evaluation findings, PT recommends SNF at discharge for daily rehab activities in a setting with 24/7 supervision in order to progress pt back toward his ambulatory baseline (earlier this year). Pt agrees he would like to be able to walk more and participate more in his own care at home. Goals Bed Mobility Goal Independent Transfer Goal Standby Assistance,Front Wheeled Walker Gait Goal Standby Assistance,Front Wheel Walker Gait Distance 75 Frequency of Treatment Frequency Of Treatment Once a Day Treatment Plan Physical Therapy Treatment Plan Bed Mobility Training,Transfer Training,Gait Training, Therapeutic Exercise,Balance Retraining,Discharge Planning, Hot or Cold Pack Other Recommendations and Next Treatment continue gait training with Focus FWW. pivot transfers with FWW Precautions Other Precautions falls risk Recommendations To Nursing Amount of Assist Needed 1 Person Assist,2 Person Assist Discharge Recommendations PT Discharge Recommendations SNF Rehab Transportation Needs at Discharge Wheelchair/Cabulance
--- NOTE | 2023-04-08 16:57 | ST.IPIE ---
Visit Care Team Role Provider Type Cely Hamilton MD Primary Care Provider Physician Specialty: Internal Medicine Address: [place] [address] Email: Bo Rodrigues PA-C Emergency Provider Advanced Senior Planner Referring Provider Specialty: Emergency Medicine Address: [address] [place] [address], [facility] Phone: Fax: Email: [email or web address] Amara Queen MD Admit Provider Physician Attending Provider Specialty: Family Practice Address: [facility] [place], [place], [facility] Phone: Fax: Email: [email or web address] Current Diagnoses Heart failure, unspecified (04/06/23) Past Medical History (Last Reviewed 04/06/23 @ 16:13 by Amara Queen MD) Atrial fibrillation (Medical) Anticoagulated on Coumadin BPH (benign prostatic hyperplasia) (Medical) Hyperlipidemia (Medical) Hypothyroidism (acquired) (Medical) Pacemaker (Medical) ST IP Initial Evaluation Report VAULT WORKER Adult Cognitive Linguistic Eval Start: 04/08/23 15:42 Freq: Status: Active Protocol: Document 04/08/23 15:43 (Rec: 04/08/23 16:25 [id number]) Adult Cognitive Linguistic Evaluation Session Time Visit Start Time 12:45 Visit Stop Time 13:45 Total Visit Minutes 60 Referral Referring Provider hospitalist Reason for Referral cognitive evaluation Setting Assessment Location Acute Care Visit Type Note Type Initial evaluation Patient Information Patient History per h&p: Dameon Coulter is an 82-year-old male presents emergency department due to a one-week history of shortness of breath. He states that it began with the changing of the seasons. He states that he has a history of chronic heart failure only takes spironolactone as needed as recommended by his primary care physician's due to his chronically ?low blood pressure ?. He denies any chest pain, cough, nausea, vomiting, URI symptoms, fevers , or any other concerning signs or symptoms. Does state he has a chronic history of lower extremity edema, worse on the right after breaking his femur a couple of years ago. Pt admitted to acute care for CHF exacerbation. Pt noted to have variable confusion, with concerns for ongoing care. ST referred to evaluate for cognition. Hearing Hearing Level Impaired Subjective Mental Status Cooperative Informal Assessment Receptive Language Normal Yes Expressive Language Normal No Expressive Language Impairment(s) Expression of complex thoughts /ideas Pragmatic Language Normal Yes Speech Normal Yes Cognition Normal No Cognitive Impairment(s) Attention,Short-term memory, Executive functioning,Problem solving,Reasoning,Thought organization,Safety awareness Formal Assessment Administration Complete Results ST administered the BCRS ( Brief Cognitive Rating Scale) corresponding to the GDS ( global deteriorization scale for dementia). Pt scored an 18 which correlates to a 3.6 on the GDS, indicative of mild- moderate cognitive decline. Conversationally, pt is very apt at covering deficits and verbalized a seemingly solid plan for medication management . On further questioning, pt does not recall what medications he is taking or accuracy in his current issues with hospitalization and admitted his daughter does fill the pill box for him but that he knows he has had some trouble w remembering to take them:. Pt was not able to express ideas for solutions to assist in remembering, although following questioning , he did recall that his daughter has created alarms on his phone for him. Pt appeared to be under the impression he may have cancer rather than congestive heart failure. Patient's longer term memory remains largely intact and his orientation is good. Pt demonstrated marked difficulty with serial 7 mental subtraction/attention task and mild diffculty w verbalizing step by step directions of a familiar task. Findings/Results Language Function Within functional limits Cognitive Function Mild-moderately impaired Findings Following cognitive eval utilizing the BRCS (Brief Cognitive Rating Scale), the pt exhibited s/s of mild dementia as demonstrated by deficits in short term and working memory, attention, problem solving and completion of moderate to complex tasks. Based on the GDS guidlines, the patient may demonstrate deficits in the following areas: Clear-cut deficit on careful clinical interview. Deficit manifest in following areas: (a) decreased knowledge of current and recent events; (b) may exhibit some deficit in memory of ones personal history; (c) concentration deficit elicited on serial subtractions; (d) decreased ability to travel, handle finances, etc. Frequently NO deficit in following areas: (a) orientation to time and place; (b) recognition of familiar persons and faces; (c) ability to travel to familiar locations. Pt will often demonstrate inability to perform complex tasks and retain novel information. Denial is dominant defense mechanism. Flattening of affect and withdrawal from challenging situations frequently occur. Pt's typically require assist/ supervision with medication management, finances, meals beyond basic prep. Pt would benefit from further ST during next stage of care to train and educate patient and caregivers on compensatory strategies and environmental modifications to increase safety and aprticipation. Cognitive Communication Deficits Self-awareness of Cognitive- Limited awareness (minimal Communication Deficits appreciation without specificity) Impact on Functioning Activity Limits/Particip.Rest. Mild: General Tasks and Demands Interpersonal Interactions Mod: Household Tasks Safety Risks Mild: Being Left Alone at Home Mod: Traveling Alone in Community Sev: Reacting to Emergency Managing Medication Prognosis Prognosis Fair Based on Family support Plan of Care Discharge Recommendations [facility] facility
[2023-04-08] MEDS: FUROSEMIDE 20 MG TABLET 60 MG PO (18:04)
[2023-04-08] MEDS: POTASSIUM CHLORIDE 20 MEQ TAB 40 MEQ PO (18:05)
--- NOTE | 2023-04-08 19:17 | OT.IP.EVAL ---
Current Diagnoses Heart failure, unspecified (04/06/23) Past Medical History (Last Reviewed 04/06/23 @ 16:13 by Amara Queen MD) Atrial fibrillation BPH (benign prostatic hyperplasia) Hyperlipidemia Hypothyroidism (acquired) Pacemaker Occupational Therapy Inpatient Evaluation/Re-Eval M1 PT/OT-IP Prior Functional Status Start: 04/08/23 16:03 Freq: NEEDED Status: Active Protocol: Document 04/08/23 18:58 CGR (Rec: 04/08/23 19:17 CGR [id number]) Medical Review Prior Functional Status Medical History Reviewed Yes Communication Pt is able to make his needs known Mobility and Gait Pt mobilizes primarily via wheelchair. He is able to stand pivot transfer with and without FWW without assist. He is able to propel his wheelchair using UE's. Activities of Daily Living and IADL's Independent with dressing and bathing. His daughter assists with higher level ADL's and driving. Prior Functional Level (Other details) History includes distal femur fracture in September 2022. He was evaluated at ED and transferred out. He discharged to SNF but did not make significant progress with PT. Social History Household Members children Living Arrangements Apartment/Condo Number of Floors (Floors) One Floor Number of Stairs To Enter/Railing? Level entrance Home Environment Standard Height Toilet,Tub/ Shower Home Equipment Front Wheel Walker,Manual Wheelchair,Raised Toilet Seat Without Armrests,Tub Transfer Bench,Hand Held Shower,Grab Bars Near Toilet,Grab Bars In Shower Employment Status Retired Additional Social History Comment Pt lives with his daughter and her . M2 OT-IP Current Condition Start: 04/08/23 18:58 Freq: Status: Active Protocol: Document 04/08/23 18:58 CGR (Rec: 04/08/23 19:17 CGR [id number]) Occupational Therapy Current Condition Current Condition Evaluation Date 04/08/23 Treatment Diagnosis CHF exacerbation Diagnosis Onset Date 04/06/23 M3 OT- IP Subjective and Pain Start: 04/08/23 18:58 Freq: Status: Active Protocol: Document 04/08/23 18:58 CGR (Rec: 04/08/23 19:17 CGR [id number]) OT- Subjective Occupational Therapy Visit Type Type Initial Evaluation Visit Start Time 15:23 Visit Stop Time 15:52 Total Visit Minutes 29 Notes Pt agreeable to OT eval M4 OT- IP ADL's Start: 04/08/23 18:58 Freq: Status: Active Protocol: Document 04/08/23 18:58 CGR (Rec: 04/08/23 19:17 CGR [id number]) OT [id number] Comments OT Self-Feeding Comments not meal time OT ADL-Grooming General Evaluation Grooming Ability Standby Assistance Areas Needing Assistance Face Washing Comments OT Grooming Comments standing at sink OT ADL-Oral Care General Eval Oral Care Ability Standby Assistance Areas of Assistance Brushing Teeth Comments Oral Care Comments standing at sink OT ADL-Dressing General Eval Lower Body Dressing Ability Standby Assistance Areas Needing Assistance Socks Comments OT Dressing Comments pt was able to doff and don socks seated EOB with some difficulty. OT ADL-Toileting General Evaluation Toileting Ability Independent Devices Toileting Assistive Devices Urinal Comments OT Toileting Comments Pt was able to use urinal seated in chair. This scientific writer left the room to give the pt privacy. OT ADL-Bathing Comments OT Bathing Comments not performed M5 OT- IP IADL's Start: 04/08/23 18:58 Freq: Status: Active Protocol: Document 04/08/23 18:58 CGR (Rec: 04/08/23 19:17 CGR [id number]) OT-Instrumental Activities of Daily Living Deficits IADL Deficits Identified Deficits Home Safety Awareness Awareness of Need for Assistance at Home Decreased Awareness Ability to Problem Solve Emergency Unable to Problem Solve Situations Medication Management Medication Management Caregiver Administers Money Management Money Management Caregiver Provides Assistance Meal Preparation Meal Preparation Caregiver Provides Assist Bee Producer Bee Producer Caregiver Provides Assist Driving Driving Comments Pt does not drive at baseline M6 OT- IP Functional Cognition Start: 04/08/23 18:58 Freq: Status: Active Protocol: Document 04/08/23 18:58 CGR (Rec: 04/08/23 19:17 CGR [id number]) Cognitive Factors Limiting Selfcare Function Cognitive Ability Level of Alertness Alert Patient Orientation Name,Age,Birthday,Month,Date, Year,Day of Week,Place, Situation Attention Span Ability Capable of Focused Attention, Capable of Sustained Attention Ability to Follow Commands Able to Follow One Step Commands with Increased Time, Able to Follow One Step Commands with Repetition Cognitive Comments Cognitive Assessment Comments Pt may benefit from a formal cog assessment. Pt was unable to state when and why he started using the w/c. Per notes, pt had a fx that percipitated the use of the w/ c. OT- Vision and Hearing OT- Hearing Assessment OT- Hearing Assessment Hearing Impaired,Use of Hearing Aids OT- Vision Assessment Visual Acuity Glasses All The Time Visual Attentiveness WFL Occular Pursuits WFL Visual Convergence WFL M7 OT- IP Mobility and Balance Start: 04/08/23 18:58 Freq: Status: Active Protocol: Document 04/08/23 18:58 CGR (Rec: 04/08/23 19:17 CGR [id number]) OT- Bed Mobility Assessment Supine to Sit Supine to Sit Assist Standby Assistance Scooting Scooting to Edge of Bed Standby Assistance OT-Transfer Assessment Sit to and From Stand Sit to and from Stand Minimal Assistance Transfers Transfer Ability Contact Guard Assistance, Minimal Assistance Technique Transfer Destination Bed,Chair Transfer Technique Stand Step Pivot Devices Transfer Assistive Devices Gait Belt,Front Wheeled Walker Comments Mobility Comments Pt stood from the bed and transered to the chair for urination. Pt then stood and ambulated to the sink for ADLs and returned to the chair. OT- Gait Assessment Gait Gait Assistance Required: Minimum Assistance Assistive Devices Assistive Device Gait Belt,Front Wheeled Walker Comments Gait Ability Comments mobility to and from the sink. Pt with LOB upon returning to chair. OT- Balance Assessment Sitting Balance and Reactions Static Sitting Balance Ability Good Dynamic Sitting Balance Ability Fair M8 OT- IP Objective Assessments Start: 04/08/23 18:58 Freq: Status: Active Protocol: Document 04/08/23 18:58 CGR (Rec: 04/08/23 19:17 CGR [id number]) OT Gross Range of Motion Upper Extremity Range of Motion Assessment Within Functional Limits OT Strength Upper Extremity Strength Assessment Within Functional Limits Comments Strength Comments 4+/5 throughout, noted thenar distrophy to B hands OT- Coordination Assessment Upper Extremity Finger to Nose Test Within Functional Limits Finger Tapping Test Within Functional Limits OT-Muscle Tone Assessment Muscle Tone WNL Yes OT Sensation Assessment Edema Edema Present Edema Comments generalized M9 OT- IP Assessment and Plan Start: 04/08/23 18:58 Freq: Status: Active Protocol: Document 04/08/23 18:58 CGR (Rec: 04/08/23 19:17 CGR [id number]) OT Summary Assessment and Plan Potential Rehabilitation Potential Good Analytic Complexity at Evaluation Moderate Summary OT Impairments Balance,Functional Mobility, Grooming,Dressing,Toileting, Bathing,Toilet Transfers, Shower Transfers,Activity Tolerance Progress Towards Goals Slow Progress due to Medical Issues,Slow Progress due to Activity Tolerance,Slow Progress due to Cognition Assessment Summary Pt presents as a moderate complexity evaluation s/p admit for CHF exacerbation. Per CM notes, there is some concern regarding pt needing more assist at home and the daughter feeling unable to provide. Pt states that his daughter takes care of his medications, food, grocery shopping, finances, etc. Pt may benefit from assisted living but could also benefit from SNF. Recommend d/c to SNF . Goals Self-Feeding Goal Independent Grooming Goal Independent Dressing Goal Independent Toileting Goal Independent Bathing Goal Independent Toilet Transfer Goal Independent Shower Transfer Goal Independent Days to Meet Goals 30 Frequency of Treatment Frequency Of Treatment Once a Day Treatment Plan OT Treatment Plan ADL Training,Functional Cognition Training,Functional Mobility,Patient/Family Education,Discharge Planning Other Treatment Recommendations and Next Cog assessment, shower, Treatment Focus endurance training Discharge Recommendations OT Discharge Recommendations SNF Rehab Transportation Needs at Discharge Wheelchair/Cabulance
[2023-04-08 21:15] VITALS: BP 102/59; PULSE 60; RESP 19; TEMP 36.3; O2SAT 94
[2023-04-08] MEDS: ATORVASTATIN 20 MG TABLET PO (21:47)
[2023-04-09] VITALS (7 sets, daily range): BP systolic 92–110; BP diastolic 51–64; PULSE 59–66; RESP 16–17; TEMP 36.1–36.6; O2SAT 91–96
[2023-04-09 05:20] LABS: Add Manual Diff / Slide Review NO; Basophils Absolute Auto 100 /uL (0-100); Basophils Percent Auto 1.2 % (0-2); Eosinophils Absolute Auto 400 /uL (0-450); Eosinophils Percent Auto 7.2 % (2-4); Hematocrit 33.1 % (41-53); Hemoglobin 11.3 g/dL (13.5-17.5); Lymphocytes Absolute Auto 900 /uL (1100-4500); Lymphocytes Percent Auto 16.7 % (25-40); Mean Corpuscular HGB Conc 34.2 % (30-36); Mean Corpuscular Hemoglobin 33.7 PG (26-34); Mean Corpuscular Volume 98.6 fL (80-100); Monocytes Absolute Auto 500 /uL (0-900); Monocytes Percent Auto 8.5 % (3-14); Neutrophils Absolute Auto 3700 /uL (1500-7000); Neutrophils Percent Auto 66.4 % (50-75); Platelet Count 180 X10^3/uL (150-400); Red Blood Cell Count 3.35 X10^6/uL (4.5-5.9); Red Cell Distribution Width 16.1 % (11.6-14.8); White Blood Cell Count 5.6 X10^3/uL (4.5-11.0)
[2023-04-09 05:34] LABS: Alanine Aminotransferase 18 IU/L (<50); Albumin 3.3 g/dL (3.5-5.0); Albumin Globulin Ratio 1.6 (1.0-2.8); Alkaline Phosphatase 66 U/L (38-126); Aspartate Aminotransferase 26 IU/L (17-59); BUN Creatinine Ratio 10.9 (6-22); Blood Urea Nitrogen 12 mg/dL (9-20); Calcium 8.9 mg/dL (8.4-10.2); Carbon Dioxide 34 mmol/L (22-32); Chloride 95 mmol/L (98-107); Estimated Glomerular Filt Rate > 60 mL/min (>60); Globulin 2.1 g/dL (1.7-4.1); Glucose 91 mg/dL (80-110); HEMOLYSIS < 15 (0-50); Magnesium 1.8 mg/dL (1.6-2.3); Potassium 3.6 mmol/L (3.4-5.1); Sodium 134 mmol/L (137-145); Total Protein 5.4 g/dL (6.3-8.2)
[2023-04-09 05:40] LABS: NT-proBNP (BNP-Adult 18+) 7450 pg/mL (<450)
[2023-04-09] MEDS: PANTOPRAZOLE DR 40 MG TABLET PO (06:24)
[2023-04-09] MEDS: LEVOTHYROXINE 100 MCG TABLET PO (06:24)
[2023-04-09] MEDS: MIDODRINE HCL 5 MG TABLET 10 MG PO ×3 (06:24→18:52)
[2023-04-09] MEDS: ESCITALOPRAM 10 MG TABLET 20 MG PO (08:46)
[2023-04-09] MEDS: buPROPion XL 150 MG TAB PO (08:46)
[2023-04-09] MEDS: APIXABAN 5 MG TABLET PO ×2 (08:46→20:43)
[2023-04-09] MEDS: AMIODARONE 200 MG TABLET 100 MG PO (08:46)
[2023-04-09] MEDS: TAMSULOSIN 0.4 MG CAPSULE PO (08:46)
[2023-04-09] MEDS: SODIUM CHLORIDE 0.9% FLUSH 10 ML IV ×2 (08:46→20:43)
[2023-04-09] MEDS: POTASSIUM CHLORIDE 20 MEQ TAB 40 MEQ PO ×2 (08:46→18:42)
[2023-04-09] MEDS: valACYclovir 500 MG TABLET PO ×2 (08:47→20:44)
[2023-04-09] MEDS: FUROSEMIDE 40 MG TABLET 80 MG PO ×2 (08:48→18:42)
--- NOTE | 2023-04-09 09:40 | OT.IP.TRT ---
Current Diagnoses Heart failure, unspecified (04/06/23) Occupational Therapy Treatment Note M2 OT-IP Current Condition Start: 04/08/23 18:58 Freq: Status: Active Protocol: Document 04/08/23 18:58 CGR (Rec: 04/08/23 19:17 CGR [id number]) Occupational Therapy Current Condition Current Condition Evaluation Date 04/08/23 Treatment Diagnosis CHF exacerbation Diagnosis Onset Date 04/06/23 M3 OT- IP Subjective and Pain Start: 04/08/23 18:58 Freq: Status: Active Protocol: Document 04/09/23 09:43 [facility] (Rec: 04/09/23 09:52 [facility] [id number]) OT- Subjective Occupational Therapy Visit Type Type Treatment Note Visit Start Time 09:11 Visit Stop Time 09:40 Total Visit Minutes 29 Occupational Therapy Visit Comments Patient Comments Pt wanting to get up to use the BSC. Patient/Caregiver Goals TO go to skilled rehab to get better prior to going home. OT Pain Assessment Pain When Pain Assessed At Rest Pain Present Pain Present Pain Reported M4 OT- IP ADL's Start: 04/08/23 18:58 Freq: Status: Active Protocol: Document 04/09/23 09:43 [facility] (Rec: 04/09/23 09:52 [facility] [id number]) OT [id number] Comments OT Self-Feeding Comments NOt at meal time. OT ADL-Grooming General Evaluation Grooming Ability Standby Assistance Comments OT Grooming Comments While in the BSC. OT ADL-Oral Care Comments Oral Care Comments Not performed. OT ADL-Toileting General Evaluation Toileting Ability Standby Assistance Areas Needing Assistance Manage Clothing,Perform Perineal Hygiene Comments OT Toileting Comments Pt able to use the toilet and wipe with wet ones and also able to pull up the brief on his own. Pt needing cues to use one hand to hold to the FWW while the other hand assist with his brief.. OT ADL-Bathing Comments OT Bathing Comments not performed M5 OT- IP IADL's Start: 04/08/23 18:58 Freq: Status: Active Protocol: Document 04/08/23 18:58 CGR (Rec: 04/08/23 19:17 CGR [id number]) OT-Instrumental Activities of Daily Living Deficits IADL Deficits Identified Deficits Home Safety Awareness Awareness of Need for Assistance at Home Decreased Awareness Ability to Problem Solve Emergency Unable to Problem Solve Situations Medication Management Medication Management Caregiver Administers Money Management Money Management Caregiver Provides Assistance Meal Preparation Meal Preparation Caregiver Provides Assist Poultry Husbandry Teacher Poultry Husbandry Teacher Caregiver Provides Assist Driving Driving Comments Pt does not drive at baseline M6 OT- IP Functional Cognition Start: 04/08/23 18:58 Freq: Status: Active Protocol: Document 04/09/23 09:43 [facility] (Rec: 04/09/23 09:52 [facility] [id number]) Cognitive Factors Limiting Selfcare Function Cognitive Ability Level of Alertness Alert Patient Orientation Name,Age,Birthday,Month,Date, Year,Day of Week,Place, Situation Attention Span Ability Capable of Focused Attention, Capable of Sustained Attention Ability to Follow Commands Able to Follow One Step Commands with Increased Time, Able to Follow One Step Commands with Repetition Memory Description Short Term Impaired Cognitive Tests SLUMS Pt scored 22/30 on the SLUMS and did not know the day of week guessed Saturday versus Saturday, able to recall 13 animals in one minute, able to recall 3/5 words after time passed, not able to draw the hour hands on the clock correctly after time given, and able to answer 3/4 questions right after paragraph read. Pt score implies mild neurocognitive disorder. Cognitive Comments Cognitive Assessment Comments Today pt states uses a wc at home as unsteady on his feet and gets woozy. M7 OT- IP Mobility and Balance Start: 04/08/23 18:58 Freq: Status: Active Protocol: Document 04/09/23 09:43 [facility] (Rec: 04/09/23 09:52 [facility] [id number]) OT- Bed Mobility Assessment Supine to Sit Supine to Sit Assist Standby Assistance Scooting Scooting to Edge of Bed Standby Assistance OT-Transfer Assessment Sit to and From Stand Sit to and from Stand Contact Guard Assistance Transfers Transfer Ability Contact Guard Assistance, Minimal Assistance Technique Transfer Destination Bed,Bedside Commode Transfer Technique Stand Step Pivot Devices Transfer Assistive Devices Gait Belt,Front Wheeled Walker Comments Mobility Comments CGA to stand and doing transfer had slight loss of balance and needing YESSI with FWW for the transfer. BP after transfer 96/51, pt's nursing notified as pt feeling woozy. OT- Balance Assessment Sitting Balance and Reactions Static Sitting Balance Ability Good Dynamic Sitting Balance Ability Fair Standing Balance and Reactions Static Standing Balance Ability Fair Dynamic Standing Balance Ability Poor M8 OT- IP Objective Assessments Start: 04/08/23 18:58 Freq: Status: Active Protocol: Document 04/08/23 18:58 CGR (Rec: 04/08/23 19:17 CGR [id number]) OT Gross Range of Motion Upper Extremity Range of Motion Assessment Within Functional Limits OT Strength Upper Extremity Strength Assessment Within Functional Limits Comments Strength Comments 4+/5 throughout, noted thenar distrophy to B hands OT- Coordination Assessment Upper Extremity Finger to Nose Test Within Functional Limits Finger Tapping Test Within Functional Limits OT-Muscle Tone Assessment Muscle Tone WNL Yes OT Sensation Assessment Edema Edema Present Edema Comments generalized M9 OT- IP Assessment and Plan Start: 04/08/23 18:58 Freq: Status: Active Protocol: Document 04/09/23 09:43 [facility] (Rec: 04/09/23 09:52 [facility] [id number]) OT Summary Assessment and Plan Potential Rehabilitation Potential Good Analytic Complexity at Evaluation Moderate Summary OT Impairments Balance,Functional Mobility, Grooming,Dressing,Toileting, Bathing,Toilet Transfers, Shower Transfers,Activity Tolerance Progress Towards Goals Slow Progress due to Medical Issues,Slow Progress due to Activity Tolerance,Slow Progress due to Cognition Assessment Summary Pt able to participate in toileting and SLUMS. Pt scored 22/30 and main deficits with decreased short term memory. Pt states his daughter assist with bills and sets up his medications for him. Pt will greatly benefit from skilled rehab to work on increasing overall dynamic balance needs- as pt is a high fall risk at this time and independence with basic ADl needs. Pt to go to skilled rehab when medically stable. Goals Self-Feeding Goal Independent Grooming Goal Independent Dressing Goal Independent Toileting Goal Independent Bathing Goal Independent Toilet Transfer Goal Independent Shower Transfer Goal Independent Days to Meet Goals 20 Frequency of Treatment Frequency Of Treatment Once a Day Treatment Plan OT Treatment Plan ADL Training,Functional Cognition Training,Functional Mobility,Patient/Family Education,Discharge Planning Discharge Recommendations OT Discharge Recommendations SNF Rehab Transportation Needs at Discharge Wheelchair/Cabulance
--- NOTE | 2023-04-09 10:49 | PT.IPTN ---
Current Diagnoses Heart failure, unspecified (04/06/23) Physical Therapy Treatment Note M2 PT-IP Current Condition Start: 04/08/23 16:03 Freq: NEEDED Status: Active Protocol: Document 04/09/23 10:23 SP (Rec: 04/09/23 13:05 SP [id number]) Physical Therapy Current Condition Current Condition Evaluation Date 04/08/23 Treatment Diagnosis CHF exacerbation, hyponatremia ; impaired mobility and gait Onset Date 04/06/23 M3 PT-IP Subjective Start: 04/08/23 16:03 Freq: NEEDED Status: Active Protocol: Document 04/09/23 10:23 SP (Rec: 04/09/23 13:05 SP [id number]) Subjective Physical Therapy Visit Type Type Treatment Note Visit Start Time 10:23 Visit Stop Time 10:49 Total Visit Minutes 26 Number of CONCRETE STONE FABRICATING SUPERVISOR Visits 1 Physical Therapy Visit Comments Patient Comments Pt is willing to participate with CONCRETE STONE FABRICATING SUPERVISOR. Patient Goals Pt agreeable to skilled rehab to improved strength and mobility before returning home due to daughter not always available. M4 PT-IP Mobility and Gait Start: 04/08/23 16:03 Freq: NEEDED Status: Active Protocol: Document 04/09/23 10:23 SP (Rec: 04/09/23 13:05 SP [id number]) PT-Bed Mobility Assessment Supine to Sit Supine to Sit Standby Assistance Sit to Supine Sit to Supine Standby Assistance PT-Transfer Assessment Sit to and From Stand Sit to and from Stand Minimal Assistance,1 Person Assistance,Use of Upper Extremities Equipment Transfer Assistive Device Gait Belt,Front Wheeled Walker Orthotic/Prosthetic Devices or Brace: No Transfers Transfer Destination Chair Transfer Technique Stand Step Pivot, ambulate c/ FWW Transfer Ability Level of Assist Minimal Assistance,1 Person Assistance,Use of Upper Extremities Comments Mobility Comments Pt in bed when arrived. sup> sit (HOB flat) SBA, STS Min A x1 support wt shift fwd cued into full stand TKE with cues for proper hand placement push from seat&FWW and reach back less assist BUE CG/5%A vs 1UE 20%A. Pt utilizing back of leg on bed/chair to complete full stand. SPT c/FWW bed>chair, cued marching steps improved foot clearance& stride. Pt required seated rest for tiring recovery. STS and gait across room to door then seated rest on EOB c/FWW, Min/ Mod A required due to lateral trunk instability and intermittent cues for TKE due to quad weakness and demonstrates flexed knees, improves with cuing. Gait c/ FWW side of bed and back to chair approx 12 ft x2. Pt was up in chair with call light and all needs in reach and chair alarm donned before left . Pt requires Min A and daughter not around all the time to assist. Recommending SNF for increased strength. Gait Assessment Gait Gait Assistance Required: Minimum Assistance Distance (Feet) 15 Assistive Devices Assistive Device Gait Belt,Front Wheeled Walker Orthotic/Prosthetic Devices or Brace: No Gait Deviations General Gait Pattern Antalgic,Decreased Stride Length,Decreased Feet Clearance,Lateral Trunk Lean, Narrow Based Gait Factors Limiting Gait Function Factors Limiting Gait Function Decreased Activity Tolerance, Decreased Strength,Poor Balance,Poor Safety Awareness Comments Gait Comments mobility to and from the sink. Pt with LOB upon returning to chair. Stair Climbing Assessment Comments Stair Climbing Comments No stairs in home environment. PT-Balance Assessment Sitting Balance and Reactions Static Sitting Balance Ability Good Dynamic Sitting Balance Ability Fair Standing Balance and Reactions Static Standing Balance Ability Fair Dynamic Standing Balance Ability Poor Device Used FWW M5 PT-IP Objective Assessments Start: 04/08/23 16:03 Freq: NEEDED Status: Active Protocol: Document 04/08/23 16:32 AW (Rec: 04/08/23 17:01 AW [id number]) Orientation Orientation/Cognition Level of Alertness Alert Orientation Name,Year,Day of Week,Place, Situation Language Function Ability No Deficits Noted Gross Range of Motion Lower Extremity ROM Assessment Within Functional Limits Strength Lower Extremity Strength Assessment Bilaterally Impaired Comments Strength Comments grossly 4-/5 BLE Sensation Assessment Sensation Gross Sensation WNL M6 PT-IP Treatment Start: 04/08/23 16:03 Freq: NEEDED Status: Active Protocol: Document 04/09/23 10:23 SP (Rec: 04/09/23 13:05 SP [id number]) Physical Therapy Treatment Exercises Exercises Ankle Pumps,Seated Knee Flexion/Extension Education Education Provided Safety Other Treatments Other Treatment Performed Instructed seated marching M7 PT-IP Assessment and Plan Start: 04/08/23 16:03 Freq: NEEDED Status: Active Protocol: Document 04/09/23 10:23 SP (Rec: 04/09/23 13:05 SP [id number]) PT Summary Assessment and Plan Potential Rehabilitation Potential Good Status of Condition at Evaluation Evolving Summary Impairments Strength,Balance,Bed Mobility, Transfers,Gait,Activity Tolerance Progress Towards Goals Slow Progress due to Activity Tolerance Assessment Summary Pt SBA for bed mobility, squat pivot transfer CGA-5%A, STS & stand step pivot transfer c/ FWW Min/Mod A c/ FWW. Gait c/ FWW short distances Min A due to need for trunk stability and TKE support with cuing for increase posturing, weakness and risk for buckling. Pt reports daughter not always there and available for assistance. REcommending SNF for increase strength and mobility. Pt is motiviated to get stronger to increase independence in transfers and return to short distance gait toward PLOF. WIll continue to assess progress. Goals Bed Mobility Goal Independent Transfer Goal Standby Assistance,Front Wheeled Walker Gait Goal Standby Assistance,Front Wheel Walker Gait Distance 75 Frequency of Treatment Frequency Of Treatment Once a Day Treatment Plan Physical Therapy Treatment Plan Bed Mobility Training,Transfer Training,Gait Training, Therapeutic Exercise,Balance Retraining,Discharge Planning, Hot or Cold Pack Other Recommendations and Next Treatment transfers, gait for increase Focus strength/distance to bathroom. safety HP strategies for trasnfers increase I. seated & standing balance. Precautions Other Precautions falls risk Recommendations To Nursing Amount of Assist Needed 1 Person Assist Discharge Recommendations PT Discharge Recommendations SNF Rehab Transportation Needs at Discharge Wheelchair/Cabulance
--- NOTE | 2023-04-09 16:46 | CM.DPC ---
DCP Continued: WORKERS COMPENSATION ADMINISTRATOR reviewed EMR. WORKERS COMPENSATION ADMINISTRATOR coordinated with Genoveva at [facility] throughout the day. Waiting [employer] auth for SNF at this time. Per OT note, patient SLUMS is at this time. WORKERS COMPENSATION ADMINISTRATOR had lengthy conversation with patient and daughter at bedside. Patient is open to SNF at this time, however still does not want [facility] tank terminal gauger. Daughter reports while she is living there now to help care for him, has to move back to home in [place] at the end of the year. Dtr reports frustrations with father not following up on his PT exercises in the past. At this time, pending the [employer] auth, the plan is as follows for [facility]: if patient gets stronger/increases in independence with ADLs, patient will return home with increase in private pay caregivers. If patient does not participate in therapies, daughter will assist in helping to arrange [facility] for [facility]. Plan: pending [employer] auth and patient's ability to have access to SNF rehab. CM team will continue to follow closely and continue to coordinate closely with family and [facility]. KATHY Cameron
--- NOTE | 2023-04-09 18:39 | P.PN_ITS ---
Subjective Subjective Date Patient Seen: 04/08/23 Interval history: Patient says he feels fine but does have a persistent intermittent cough. No production, No leg swelling. Recommended for SNF Exam Vital Signs (past 8 hours): - 04/09/23 12:00 04/09/23 16:00 Temperature 97.8 F 97.3 F L Pulse Rate 62 60 Respiratory Rate 16 16 Blood Pressure 92/51 L 104/55 L Pulse Oximetry 95 96 Oxygen Flow Rate 0 0 Oxygen Delivery Method Room Air Oxygen Flow Rate 0 Narrative Exam Narrative: GENERAL: Well-developed patient, in no acute medical distress HEAD: Atraumatic. Normocephalic. NECK: Trachea midline. Non tender CARDIOVASCULAR: Regular rate and rhythm without murmurs, gallops, or rubs. Has fine crackles in lower third of lungs. RESPIRATORY: No wheezing GASTROINTESTINAL: Abdomen soft, non-tender, nondistended. EXTREMITIES: No pitting edema to bilateral lower extremities BACK: Nontender without deformity or crepitance. No flank tenderness. NEURO: AOx3. However does appear memory and decision making is impaired SKIN: No rash or erythema of visible area Objective Labs 04/09/23 04:34 04/09/23 04:34 Labs: Laboratory Results - last 24 hr 04/09/23 04:34 WBC 5.6 RBC 3.35 L Hgb 11.3 L Hct 33.1 L MCV 98.6 MCH 33.7 MCHC 34.2 RDW 16.1 H Plt Count 180 Neut % (Auto) 66.4 Lymph % (Auto) 16.7 L [place] % (Auto) 8.5 Eos % (Auto) 7.2 H Baso % (Auto) 1.2 Neut # (Auto) 3700 Lymph # (Auto) 900 L [place] # (Auto) 500 Eos # (Auto) 400 Baso # (Auto) 100 Sodium 134 L Potassium 3.6 Chloride 95 L Carbon Dioxide 34 H BUN 12 Creatinine 1.10 Estimated GFR > 60 BUN/Creatinine Ratio 10.9 Glucose 91 Calcium 8.9 Magnesium 1.8 Total Bilirubin 1.0 AST 26 ALT 18 Alkaline Phosphatase 66 NT-Pro-B Natriuret Pep 7450 H Total Protein 5.4 L Albumin 3.3 L Globulin 2.1 Albumin/Globulin Ratio 1.6 [facility] Medical History Hypothyroidism (acquired) BPH (benign prostatic hyperplasia) Pacemaker Atrial fibrillation Hyperlipidemia Social History household members: children Smoking Status: Never smoker alcohol intake: current Assessment & Plan Assessment & Plan narrative: # acute systolic heart failure, in setting of known diastolic heart failure. POA, acute exacerbation - IV lasix 20 mg IV given twice in the ER with benefit but patient still not functional with activities of daily living - started lasix IV 40 q 12 h - follow BP and labs - currently on 80 mg PO BID and midodrine given orthostatic hypotension Comment from Strategic Sourcing Manager reading ECHO and documenting severe cardiomyopthy- patient should be off Metoprolol and off spironalactone and off any lisinopril which was on his record from before. Strategic Sourcing Manager reading ECHO sent message to patient's Strategic Sourcing Manager to have an urgent post discharge visit. # hypotension secondary to diuresis POA, on midodrine to help, the dose has been increased today, continue to monitor - midodrine is stablizing BP so diuresis can occur #hyponatremia POA, likely chronic with exacerbation, continue to monitor -need to monitor with the use of diuresis # hypothyroid by history POA, chronic - no indication patient is on replacement - initially, test thyroid panel _ clairfied pt is on replacement, however, TSH high, Free T4 high aBUT Free T4 low - consistent with need to increase replacement, will increase to 100 mcg daily #atrial fibrillation with pacemaker POA, chronic - Clarified with daughter pt is on eliquis and has been ordered # hyperlidipemia, by history -Clarified with daughter is on atorvastatin 20 mg daily, and that has been ordered, lipid panel is good # multiple myeloma POA, chronic, patient indicates he is on treatment, will find out what it is - actually does not appear there is treatment # pacemaker in place (per Strategic Sourcing Manager reading ECHO - actually is also defibrillator and she left message for his Strategic Sourcing Manager that the defib should be de-activiated if patient is DNR) POA, chronic Disposition: SNF, currently evaluating for placement options. Likely ready tomorrow. CODE: DNR Surragate decision maker: daughter Bian Coulter DVT prophylaxis: on apixaban
[2023-04-09] MEDS: ATORVASTATIN 20 MG TABLET PO (20:44)
[2023-04-10] VITALS: BP 115/61; PULSE 70; RESP 18; TEMP 36.9; O2SAT 94
[2023-04-10 04:00] VITALS: BP 120/66; PULSE 80; RESP 16; TEMP 36.4; O2SAT 96
[2023-04-10] MEDS: LEVOTHYROXINE 100 MCG TABLET PO (05:15)
[2023-04-10] MEDS: PANTOPRAZOLE DR 40 MG TABLET PO (05:15)
[2023-04-10] MEDS: MIDODRINE HCL 5 MG TABLET 10 MG PO ×2 (05:15→11:32)
[2023-04-10 08:00] VITALS: BP 101/72; PULSE 61; RESP 16; TEMP 36.3; O2SAT 95
[2023-04-10] MEDS: buPROPion XL 150 MG TAB PO (08:39)
[2023-04-10] MEDS: AMIODARONE 200 MG TABLET 100 MG PO (08:39)
[2023-04-10] MEDS: POTASSIUM CHLORIDE 20 MEQ TAB 40 MEQ PO (08:39)
[2023-04-10] MEDS: TAMSULOSIN 0.4 MG CAPSULE PO (08:39)
[2023-04-10] MEDS: APIXABAN 5 MG TABLET PO (08:39)
[2023-04-10] MEDS: ESCITALOPRAM 10 MG TABLET 20 MG PO (08:39)
[2023-04-10] MEDS: valACYclovir 500 MG TABLET PO (08:40)
[2023-04-10] MEDS: FUROSEMIDE 40 MG TABLET 80 MG PO (08:40)
[2023-04-10] MEDS: SODIUM CHLORIDE 0.9% FLUSH 10 ML IV (08:40)
--- NOTE | 2023-04-10 09:19 | P.DS_ITS ---
History of Present Illness History of Present Illness Date Patient Seen: 04/10/23 Time Patient Seen: 09:29 Chief complaint: ASTHMA Narrative: Per admitting provider, Dameon Coulter is an 82-year-old male presents emergency department due to a one-week history of shortness of breath. He states that it began with the changing of the seasons. He states that he has a history of chronic heart failure only takes spironolactone as needed as recommended by his primary care physician's due to his chronically ?low blood pressure ?. He denies any chest pain, cough, nausea, vomiting, URI symptoms, fevers, or any other concerning signs or symptoms. Does state he has a chronic history of lower extremity edema, worse on the right after breaking his femur a couple of years ago. Discharge Providers Provider Date of admission: 04/06/23 15:19 Discharge Date: 04/10/23 Primary care physician: Cely Hamilton MD Consults: 04/08/23 10:19 Consult to Occupational Therapy Evaluate & Treat Comment: Physician Instructions: Evaluate and treat Consult to Physical Therapy Evaluate & Treat Comment: asses ability Physician Instructions: Evaluate and Treat Consult to Speech Therapy Evaluate & Treat Comment: Please do UMS Physician Instructions: Evaluate and treat Discharge provider: Delmer Arvizu DO Summary Hospital Course Discharge Diagnosis: # acute systolic heart failure, in setting of known diastolic heart failure with acute respiratory failure with hypoxia. # hypotension secondary to diuresis #hyponatremia # hypothyroid by history #atrial fibrillation with pacemaker / defibrillator # hyperlidipemia, by history # multiple myeloma # pacemaker in place (per [employer] Supervisor reading ECHO - actually is also defibrillator and she left message for his [employer] Supervisor that the defib should be de-activiated if patient is DNR) Hospital Course: This is an 82 year old male who was admitted to the hospital with a new diagnosis of systolic heart failure with volume overload and acute respiratory failure with hypoxia. He quickly was able to wean off oxygen, but developed hypotension initially with diuresis. Echocardiogram showed a new EF of 20-25%, food scientist recommended cessation of metoprolol, lisinopril and aldactone. He required midodrine to diurese adequately without hypotension. After improvement in symptoms he did have some difficulty with dizziness and weakness due to his heart failure. He was recommended for SNF. He should continue to try to wean from midodrine at SNF, and will need follow up with his regular food scientist for further medication adjustments and management of new heart failure with reduced EF. We were unable to add beta rey or denver inhibition as discussed above due to hypotension. Time Spent with Patient Time spent: Greater than 30 minutes Exam Vital Signs (past 8 hours): - 04/10/23 04:00 Temperature 97.6 F Pulse Rate 80 Respiratory Rate 16 Blood Pressure 120/66 Pulse Oximetry 96 Oxygen Flow Rate 0 Oxygen Delivery Method Room Air Oxygen Flow Rate 0 Narrative Exam Narrative: GENERAL: Well-developed patient, in no acute medical distress HEAD: Atraumatic. Normocephalic. NECK: Trachea midline. Non tender CARDIOVASCULAR: Regular rate and rhythm without murmurs, gallops, or rubs. Has fine crackles in lower third of lungs. RESPIRATORY: No wheezing GASTROINTESTINAL: Abdomen soft, non-tender, nondistended. EXTREMITIES: No pitting edema to bilateral lower extremities BACK: Nontender without deformity or crepitance. No flank tenderness. NEURO: AOx3. However does appear memory and decision making is impaired SKIN: No rash or erythema of visible area Objective Labs 04/09/23 04:34 04/09/23 04:34 [facility] Medical History Hypothyroidism (acquired) BPH (benign prostatic hyperplasia) Pacemaker Atrial fibrillation Hyperlipidemia Social History household members: children Smoking Status: Never smoker alcohol intake: current Discharge Plan Discharge Plan Patient Disposition: SNF Provider Discharge Comment: 82 M admitted with fatigue and shortness of breath, found to have new systolic heart failure (EF20-25%). Recommended by cardiology to stop previous denver-inhibition and beta rey. Still needs fluid removal. on oral lasix 80 mg BID, can likely be reduced as weight continues to come down. Should have expedited follow up with food scientist Dr. Hernandez for continued medication adjustments. If BP remains normal, try to decrease midodrine as well. He is currently on 10 mg TID, which should be weaned (as tolerated with orthostasis) as soon as possible. Discharge orders & Medications Prescriptions: New cyclobenzaprine 10 mg Tablet 10 mg PO TID PRN (Reason: muscle spasm) Qty: 15 0RF furosemide 40 mg Tablet 80 mg PO 0800,1700 Qty: 60 0RF hydrocodone-acetaminophen 5-325 mg Tablet 1 tab PO Q4H PRN (Reason: pain) Qty: 20 0RF midodrine 5 mg Tablet 10 mg PO 0600,1200,1800 Qty: 60 0RF potassium chloride [Klor-Con M20] 20 mEq Tablet,Er Particles/Crystals 20 meq PO BIDWM Qty: 60 0RF tamsulosin [Flomax] 0.4 mg Capsule 0.4 mg PO DAILY Qty: 30 0RF Continued omeprazole 40 mg capsule,delayed release(DR/EC) 40 mg PO DAILY Qty: 30 0RF amiodarone 200 mg tablet 200 mg PO DAILY bupropion HCl 150 mg tablet sustained-release 12 hr 150 mg PO BID atorvastatin 20 mg tablet 20 mg PO DAILY levothyroxine 88 mcg tablet 88 mcg PO DAILY valacyclovir 500 mg tablet 500 mg PO BID escitalopram oxalate 20 mg tablet 20 mg PO DAILY Eliquis 5 mg tablet 5 mg PO BID tamsulosin 0.4 mg capsule 0.4 mg PO DAILY Qty: 30 0RF Discontinued baclofen 10 mg tablet 5 mg PO TID PRN (Reason: Pain (Scale Score 1-3)) omeprazole 40 mg capsule,delayed release(DR/EC) 40 mg PO DAILY metoprolol succinate 25 mg tablet extended release 24 hr 25 mg PO DAILY Follow up/Referrals: Fernanda Hernandez MD [Physician] - 2 Weeks Cely Hamilton MD [Primary Care Provider] - Discharge Health Status Multidrug resistant organism: No MDRO Precautions: [place] Diet/Activity/Treatments Diet: Diet as Tolerated and Low-sodium Liquid consistency: Normal/Thin Food texture: Regular Activity: As tolerated, no restrictions Special Rehabilitation Services Reason for rehabilitation: Recovery r/t decondition Rehab type: Physical therapy and Occupational therapy Visit Report/Discharge Packet Instructions: Heart Failure, DI for Heart Failure Stand Alone Forms: Patient Portal/API Discharge Data Primary Care Provider: Cely Hamilton [facility] [place] The patient has current or prior documentation of left ventricular ejection fraction (LVEF) less than or equal to 40%, or moderate or severely depressed left ventricular systolic function.: Yes A. The patient was prescribed or already taking an Angiotensin-Converting Enzyme (DENVER) Inhibitor, or Angiotensin Receptor Rey (ARB).: No B. The patient was prescribed or already taking a beta-rey. [If Yes to Both A & B, STOP here]: No Patient not prescribed/taking DENVER or ARB for medical/patient reason(s) including (ex: allergy, intolerance, contraindication).: YES Patient not prescribed/taking Beta-rey for medical/patient reason(s) including (ex: allergy, intolerance, contraindication).: YES
--- NOTE | 2023-04-10 10:20 | PT.IPTN ---
Current Diagnoses Heart failure, unspecified (04/06/23) Physical Therapy Treatment Note M2 PT-IP Current Condition Start: 04/08/23 16:03 Freq: NEEDED Status: Active Protocol: Document 04/09/23 10:23 SP (Rec: 04/09/23 13:05 SP [id number]) Physical Therapy Current Condition Current Condition Evaluation Date 04/08/23 Treatment Diagnosis CHF exacerbation, hyponatremia ; impaired mobility and gait Onset Date 04/06/23 M3 PT-IP Subjective Start: 04/08/23 16:03 Freq: NEEDED Status: Active Protocol: Document 04/10/23 09:40 AB (Rec: 04/10/23 11:33 AB [id number]) Subjective Physical Therapy Visit Type Type Treatment Note Visit Start Time 09:40 Visit Stop Time 10:00 Total Visit Minutes 20 Number of OFFSET PRESS OPERATOR Visits 0 Physical Therapy Visit Comments Patient Comments agreeable to do PT M4 PT-IP Mobility and Gait Start: 04/08/23 16:03 Freq: NEEDED Status: Active Protocol: Document 04/10/23 09:40 AB (Rec: 04/10/23 11:33 AB [id number]) PT-Bed Mobility Assessment Supine to Sit Supine to Sit Standby Assistance PT-Transfer Assessment Sit to and From Stand Sit to and from Stand Contact Guard Assistance,1 Person Assistance,Use of Upper Extremities Equipment Transfer Assistive Device Gait Belt,Front Wheeled Walker Orthotic/Prosthetic Devices or Brace: No Transfers Transfer Destination Chair Transfer Ability Level of Assist Contact Guard Assistance, Minimal Assistance,1 Person Assistance,Use of Upper Extremities Comments Mobility Comments pt supine in bed. agreeable to do PT. completed supine to sit SBA. O2 sat at RA sitting on EOB: 96% and NV: 67. completed sit to stand CGA and ambulated 5 ft using FWW min A. presents with unsteady gait with very slow josiah. pt stated that he needs to sit down and chair positioned behind pt. pt sat and rested and refused further ambulation but agreed to stay up on the chair. positioned on the chair. call light and table placed within reach. Gait Assessment Gait Gait Assistance Required: Minimum Assistance Distance (Feet) 5 Able to Maintain Weight Bearing Status Yes During Gait Assistive Devices Assistive Device Gait Belt,Front Wheeled Walker Orthotic/Prosthetic Devices or Brace: No Gait Deviations General Gait Pattern Decreased Stride Length, Decreased Feet Clearance,Step- to Gait Factors Limiting Gait Function Factors Limiting Gait Function Decreased Activity Tolerance, Decreased Strength,Difficulty Following Directions,Limited Range of Motion,Poor Balance, Poor Safety Awareness, Respiratory Distress M5 PT-IP Objective Assessments Start: 04/08/23 16:03 Freq: NEEDED Status: Active Protocol: Document 04/08/23 16:32 AW (Rec: 04/08/23 17:01 AW [id number]) Orientation Orientation/Cognition Level of Alertness Alert Orientation Name,Year,Day of Week,Place, Situation Language Function Ability No Deficits Noted Gross Range of Motion Lower Extremity ROM Assessment Within Functional Limits Strength Lower Extremity Strength Assessment Bilaterally Impaired Comments Strength Comments grossly 4-/5 BLE Sensation Assessment Sensation Gross Sensation WNL M6 PT-IP Treatment Start: 04/08/23 16:03 Freq: NEEDED Status: Active Protocol: Document 04/10/23 09:40 AB (Rec: 04/10/23 11:33 AB [id number]) Physical Therapy Treatment Education Education Provided Safety M7 PT-IP Assessment and Plan Start: 04/08/23 16:03 Freq: NEEDED Status: Active Protocol: Document 04/10/23 09:40 AB (Rec: 04/10/23 11:33 AB [id number]) PT Summary Assessment and Plan Potential Rehabilitation Potential Fair Summary Impairments Pain,ROM,Strength,Balance, Coordination,Sensation,Tone, Cognition,Bed Mobility, Transfers,Gait,Activity Tolerance Progress Towards Goals Slow Progress due to Medical Issues,Slow Progress due to Activity Tolerance Assessment Summary pt requiring CGA to min A for transfers and only able to ambulate ~ 5 ft using FWW min A. pt presents with weakness and decrease activity tolerance affecting mobility assistance and independence. pt will benefit from SNF rehab to improve overall strength and function. Goals Bed Mobility Goal Independent Transfer Goal Standby Assistance,Front Wheeled Walker Gait Goal Standby Assistance,Front Wheel Walker Gait Distance 25 Days to Meet Goals 10 Frequency of Treatment Frequency Of Treatment Once a Day Treatment Plan Physical Therapy Treatment Plan Bed Mobility Training,Transfer Training,Gait Training, Therapeutic Exercise,Balance Retraining,Discharge Planning, Hot or Cold Pack Precautions Other Precautions falls risk Recommendations To Nursing Amount of Assist Needed 1 Person Assist Discharge Recommendations PT Discharge Recommendations SNF Rehab Transportation Needs at Discharge Wheelchair/Cabulance
--- NOTE | 2023-04-10 10:46 | CM.DPC ---
DCP Discharge SNF Per MD, pt is medically stable to d/c to SNF today and no identified barriers. SW spoke to admissions at [facility] Genoveva and she confirms she just received confirmation from pt's Jennifer/Deena that they auth'd SNF and they can transport around 1245 today. JUAN called pt's Dtr Bina and updated on insurance auth and d/c to [facility] today and she is very appreciative and remains in agreement and will likely be bedside prior to d/c for encouragement for the patient and will bring some belongings to [facility]. JUAN updated ont he couple patients at [facility] that are COVID+ but isolated and pt will be in a room with another pt testing negative and Dtr acknowledges understanding. Dtr remembers the process of insurance auth for SNF and ongoing review for additional days at SNF if needed. YUE Marroquin kindly faxed d/c packet with PASRR, signed med list, scripts, MD orders and d/c summ to [facility] to review. JUAN updated RN and computing tutor. Plan: Patient to d/c to [facility] today via cabulance at 1245 before safe return home and Dtr continuing to work on LTC plan. Yamilka Escobar, [employer]
--- NOTE | 2023-04-10 11:50 | OT.IP.TRT ---
Current Diagnoses Heart failure, unspecified (04/06/23) Occupational Therapy Treatment Note M2 OT-IP Current Condition Start: 04/08/23 18:58 Freq: Status: Active Protocol: Document 04/08/23 18:58 [facility] (Rec: 04/08/23 19:17 CGR [id number]) Occupational Therapy Current Condition Current Condition Evaluation Date 04/08/23 Treatment Diagnosis CHF exacerbation Diagnosis Onset Date 04/06/23 M3 OT- IP Subjective and Pain Start: 04/08/23 18:58 Freq: Status: Active Protocol: Document 04/10/23 11:53 [facility] (Rec: 04/10/23 12:04 [facility] [id number]) OT- Subjective Occupational Therapy Visit Type Type Treatment Note Visit Start Time 11:14 Visit Stop Time 11:52 Total Visit Minutes 38 Occupational Therapy Visit Comments Patient Comments Pt agreed to take a shower. Patient/Caregiver Goals TO get better. OT Pain Assessment Pain When Pain Assessed At Rest Pain Present Pain Present Denied Pain M4 OT- IP ADL's Start: 04/08/23 18:58 Freq: Status: Active Protocol: Document 04/10/23 11:53 [facility] (Rec: 04/10/23 12:04 [facility] [id number]) OT ADL-Grooming General Evaluation Grooming Ability Standby Assistance OT ADL-Dressing General Eval Lower Body Dressing Ability Contact Guard Assistance Areas Needing Assistance Socks Comments OT Dressing Comments Able to do while seated. CGA for balance while pt pulling up his brief over his hips. OT ADL-Toileting General Evaluation Toileting Ability Standby Assistance Comments OT Toileting Comments Pt able to use the urinal on his own after set-up. OT ADL-Bathing Bathing Type Bathing Type Sponge Bath Comments OT Bathing Comments Pt having low BP , therefore opted to sponge off. Pt just needing assist to wash his back and CGA for balance while standing to do his pericare needs. M5 OT- IP IADL's Start: 04/08/23 18:58 Freq: Status: Active Protocol: Document 04/08/23 18:58 [facility] (Rec: 04/08/23 19:17 CGR [id number]) OT-Instrumental Activities of Daily Living Deficits IADL Deficits Identified Deficits Home Safety Awareness Awareness of Need for Assistance at Home Decreased Awareness Ability to Problem Solve Emergency Unable to Problem Solve Situations Medication Management Medication Management Caregiver Administers Money Management Money Management Caregiver Provides Assistance Meal Preparation Meal Preparation Caregiver Provides Assist Battery Test Engineer Battery Test Engineer Caregiver Provides Assist Driving Driving Comments Pt does not drive at baseline M6 OT- IP Functional Cognition Start: 04/08/23 18:58 Freq: Status: Active Protocol: Document 04/10/23 11:53 [facility] (Rec: 04/10/23 12:04 [facility] [id number]) Cognitive Factors Limiting Selfcare Function Cognitive Ability Memory Description Short Term Impaired Cognitive Comments Cognitive Assessment Comments Pt is forgetful and has difficulty with short term memory needs mainly. M7 OT- IP Mobility and Balance Start: 04/08/23 18:58 Freq: Status: Active Protocol: Document 04/10/23 11:53 [facility] (Rec: 04/10/23 12:04 [facility] [id number]) OT-Transfer Assessment Sit to and From Stand Sit to and from Stand Minimal Assistance,Moderate Assistance Comments Mobility Comments Pt needing MODA to stand from lower surfaces especially when his hip are lower then his knees. Pt's BP sitting 92/51 and when standing feeling light headed 75/45 and nursing notified. OT- Balance Assessment Sitting Balance and Reactions Static Sitting Balance Ability Normal Dynamic Sitting Balance Ability Good Standing Balance and Reactions Static Standing Balance Ability Fair Dynamic Standing Balance Ability Fair M8 OT- IP Objective Assessments Start: 04/08/23 18:58 Freq: Status: Active Protocol: Document 04/08/23 18:58 [facility] (Rec: 04/08/23 19:17 C[facility] [id number]) OT Gross Range of Motion Upper Extremity Range of Motion Assessment Within Functional Limits OT Strength Upper Extremity Strength Assessment Within Functional Limits Comments Strength Comments 4+/5 throughout, noted thenar distrophy to B hands OT- Coordination Assessment Upper Extremity Finger to Nose Test Within Functional Limits Finger Tapping Test Within Functional Limits OT-Muscle Tone Assessment Muscle Tone WNL Yes OT Sensation Assessment Edema Edema Present Edema Comments generalized M9 OT- IP Assessment and Plan Start: 04/08/23 18:58 Freq: Status: Active Protocol: Document 04/10/23 11:53 [facility] (Rec: 04/10/23 12:04 [facility] [id number]) OT Summary Assessment and Plan Potential Rehabilitation Potential Good Analytic Complexity at Evaluation Moderate Summary OT Impairments Balance,Functional Mobility, Grooming,Dressing,Toileting, Bathing,Toilet Transfers, Shower Transfers,Activity Tolerance Progress Towards Goals Slow Progress due to Medical Issues,Slow Progress due to Activity Tolerance,Slow Progress due to Cognition Assessment Summary Pt able to tolerate sponge bath while seated was going to have pt shower but his BP was low at 75/45 and feeling light headed. Able to notify pt's nurse of his request for stool softener. Pt to go to skilled rehab when medically stable. Goals Self-Feeding Goal Independent Grooming Goal Independent Dressing Goal Independent Toileting Goal Independent Bathing Goal Independent Toilet Transfer Goal Independent Shower Transfer Goal Independent Days to Meet Goals 19 Frequency of Treatment Frequency Of Treatment Once a Day Treatment Plan OT Treatment Plan ADL Training,Functional Cognition Training,Functional Mobility,Patient/Family Education,Discharge Planning Discharge Recommendations OT Discharge Recommendations SNF Rehab Transportation Needs at Discharge Wheelchair/Cabulance
[2023-04-10] MEDS: polyethylene glycoL 3350 17 GM POWD.PACK PO (12:28)
--- NOTE | 2023-04-10 13:24 | PC.NURSE ---
Patient is A&OX4. He still has soft BP this a.m. Initially when he is up to BSC he denies feeling light headed or dizzy, and gets up to the bsc and chair w/o complaints. He is given a.m. medications with lasix. He works with OT this a.m. but reports feeling light headed when getting prepared for a shower, at this time his SBP drops upon standing to 70's. He is given po midodrine as ordered at this time with good effect. Daughter at bedside asking appropriate questions to CM and making discharge arrangents for [facility] at today. Report called to LOUIE Magallanes. He verabalizes agreement and acknowledgement of discharge to rehab facility. He is escorted via cabulance at with all of his belongings including his personal w/ch at 1300 this afternoon. Discharge paperwork given to transporter.
== END 2023-04-10 13:00 | DRG 291 ==
LOC: ED 11:50 → AC 15:19
PROVIDERS: Emergency Medicine; Admitting Provider Neuromusculoskeletal Medicine, Sports Medicine; Emergency Provider Physician Assistant Medical; PCP Internal Medicine; Referring Provider Physician Assistant Medical; Visit Provider Neuromusculoskeletal Medicine, Sports Medicine
DX: I50.41 Acute combined systolic (congestive) and diastolic (congestive) heart failure (principal); J96.01 Acute respiratory failure with hypoxia; C90.00 Multiple myeloma not having achieved remission; E87.1 Hypo-osmolality and hyponatremia; I42.9 Cardiomyopathy, unspecified; I48.91 Unspecified atrial fibrillation; E03.9 Hypothyroidism, unspecified; N40.0 Benign prostatic hyperplasia without lower urinary tract symptoms; E78.5 Hyperlipidemia, unspecified; I95.2 Hypotension due to drugs; T50.2X5A Adverse effect of carbonic-anhydrase inhibitors, benzothiadiazides and other diuretics, initial encounter; Z79.01 Long term (current) use of anticoagulants; Z66 Do not resuscitate; Z95.810 Presence of automatic (implantable) cardiac defibrillator
CPT/HCPCS: 0241U; 36415; 71045; 80053; 80061; 81003; 83605; 83735; 83880; 84439; 84443; 84481; 84484; 85025; 85610; 92523; 93005; 93306; 96374; 96376; 97129; 97162; 97166; 97530; 97535; 99284; 99285; J1940

== ENCOUNTER 2024-04-13 02:29 | Emergency (ER) | payer OTHER, SELFPAY ==
[2023-04-06 16:31] VITALS: BMI 27.1
--- NOTE | 2024-04-13 02:36 | ED_ITS ---
HPI - Nausea/Vomiting/Diarrhea General Chief complaint: Nausea/Vomiting/Diarrhea Stated complaint: diarrhea Time Seen by Provider: 04/13/24 02:41 History of Present Illness HPI Narrative: Patient is a 83-year-old male who presents from home via EMS for evaluation of diarrhea. He does have a past medical history of hypertension, hyperlipidemia AFib on Eliquis, he states that approximately 3 days ago he was constipated therefore he took [id number] laxative medications, he says that ever since then he has been having diarrhea. He denies any bright red blood per rectum denies any melanotic stools, denies any actual abdominal pain cramping denies any nausea or vomiting, states that he is just having persistent diarrhea therefore decided come into the ED for further evaluation treatment. No recent antibiotic use. Related Data Home Medications Medication Instructions Recorded Confirmed amiodarone 200 mg tablet 200 mg PO DAILY 04/10/23 04/10/23 apixaban 5 mg tablet (Eliquis) 5 mg PO BID 04/10/23 04/10/23 atorvastatin 20 mg tablet 20 mg PO DAILY 04/10/23 04/10/23 bupropion HCl 150 mg tablet,12 hr 150 mg PO BID 04/10/23 04/10/23 sustained-release escitalopram oxalate 20 mg tablet 20 mg PO DAILY 04/10/23 04/10/23 levothyroxine 88 mcg tablet 88 mcg PO DAILY 04/10/23 04/10/23 valacyclovir 500 mg tablet 500 mg PO BID 04/10/23 04/10/23 Previous Rx's Medication Instructions Recorded omeprazole 40 mg capsule,delayed 40 mg PO DAILY #30 caps 03/17/23 release cyclobenzaprine 10 mg tablet 10 mg PO TID PRN muscle spasm #15 04/10/23 tabs furosemide 40 mg tablet 80 mg (2 x 40 mg) PO 0800,1700 #60 04/10/23 tabs hydrocodone 5 mg-acetaminophen 325 1 tab PO Q4H PRN pain #20 tabs 04/10/23 mg tablet midodrine 5 mg tablet 10 mg (2 x 5 mg) PO 0600,1200,1800 04/10/23 #60 tabs potassium chloride 20 mEq 20 meq PO BIDWM #60 tabs 04/10/23 tablet,extended release(part/cryst) (Klor-Con M) tamsulosin 0.4 mg capsule 0.4 mg PO DAILY #30 caps 04/10/23 tamsulosin 0.4 mg capsule (Flomax) 0.4 mg PO DAILY #30 caps 04/10/23 hydrocortisone 2.5 % topical cream 1 applic [place] QD-BID PRN hemorrhoids 04/13/24 with perineal applicator #30 grams (Anusol-HC) Allergies Allergy/AdvReac Type Severity Reaction Status Date / Time Sulfa (Sulfonamide Allergy Severe HIVES, Verified 04/06/23 10:54 Antibiotics) BREATHING PROBLEMS prednisone Allergy Unknown UNKNOWN Verified 04/06/23 10:54 Review of Systems Review of Systems Narrative: General: Denies fever, chills, weight loss HEENT: Denies headache, eye drainage, eye irritation, head trauma, sore throat, voice change Cardiovascular: Denies any chest pain, palpitations, shortness of breath, tachycardia Respiratory: Denies any shortness of breath, cough, wheeze, stridor GI/: Positive diarrhea,Denies any abdominal pain, nausea, vomiting, bright red blood per rectum, melanotic stools, urinary frequency, urinary retention, dysuria, hematuria MSK: Denies any joint pain, muscle pains, swelling Skin: Denies any rashes, lesions, discoloration Neuro: Denies any headache, lightheadedness, dizziness, fainting, weakness Psych: Denies SI/HI Patient History Medical History Hypothyroidism (acquired) BPH (benign prostatic hyperplasia) Pacemaker Atrial fibrillation Hyperlipidemia Social History household members: children Smoking Status: Never smoker alcohol intake: current Smoking Status: Never smoker alcohol intake frequency: a few times a week Alcohol type: beer Substance Use Type: does not use Exam Narrative Exam Narrative: General: Cooperative, comfortable, well-developed, not in acute distress HEENT: Normocephalic, atraumatic, PERRLA, normal sclera, eyelids normal, Neck: Active full range of motion, atraumatic Chest: Normal to inspection, negative crepitus, no overlying erythema ecchymosis Respiratory: Normal respiratory effort, not in acute respiratory distress, clear to auscultation bilaterally negative cough, wheeze, tachypnea, rhonchi, rales Cardiology: Regular rate rhythm negative gallop, murmur, rubs GI/: Normal to inspection, soft, nonrigid, no tenderness to palpation, exam deferred MSK: Full range of active range of motion of all 4 extremities, atraumatic Skin: No rashes lesions noted Neuro: Alert awake oriented x3, moves all 4 extremities spontaneously, cranial nerves intact, able to answer all questions appropriately follows commands appropriately Psych: Cooperative, negative suicidal or homicidal ideations Initial Vital Signs Initial Vital Signs: Vital Signs Temperature 96.8 F L 04/13/24 02:37 Pulse Rate 61 04/13/24 02:37 Respiratory Rate 18 04/13/24 02:37 Blood Pressure 148/66 H 04/13/24 02:37 Pulse Oximetry 100 04/13/24 02:37 Oxygen Delivery Method Room Air 04/13/24 02:37 Course Orders Ordered: ED Orders 04/13/24 02:35 BMP [Basic Metabolic Panel] Stat CBC No Diff [Complete Blood Count NO DIFF] Stat MAG [Magnesium] Stat 04/13/24 02:55 GI Panel (Film Array) Stat Discontinued Medications Acetaminophen (Acetaminophen 325 Mg Tablet) 650 mg PO NOW ONE Stop: 04/13/24 02:54 Last Admin: 04/13/24 02:56 Dose: 650 mg Documented By: OSITO Vital Signs Vital signs: Vital Signs - 8 hr 04/13/24 02:37 Temperature 96.8 F L Pulse Rate 61 Respiratory Rate 18 Blood Pressure 148/66 H Pulse Oximetry 100 Oxygen Delivery Method Room Air MDM - Nausea/Vomiting/Diarrhea Differential Diagnosis Differential diagnosis: Likely clostridium difficile infection and other (Drug induced, electrolyte abnormality) Lab Data 04/13/24 02:35 04/13/24 02:35 Labs: Lab Results 04/13/24 04/13/24 Range/Units 02:35 02:55 WBC 10.5 (4.5-11.0) X10^3/uL RBC 3.55 L (4.5-5.9) X10^6/uL Hgb 12.7 L (13.5-17.5) g/dL Hct 35.8 L (41-53) % MCV 100.8 H (80-100) fL MCH 35.9 H (26-34) PG MCHC 35.6 (30-36) % RDW 13.5 (11.6-14.8) % Plt Count 187 (150-400) X10^3/uL Sodium 131 L (137-145) mmol/L Potassium 4.3 (3.4-5.1) mmol/L Chloride 101 (98-107) mmol/L Carbon Dioxide 19 L (22-32) mmol/L BUN 32 H (9-20) mg/dL Creatinine 1.94 H (0.66-1.25) mg/dL Estimated GFR 34 L (>60) mL/min BUN/Creatinine Ratio 16.5 (6-22) Glucose 97 (80-110) mg/dL Calcium 9.9 (8.4-10.2) mg/dL Magnesium 1.9 (1.6-2.3) mg/dL Stl C. cayetanensis PCR Not detected (Not Detect) Stool Rotavirus (PCR) Not detected (Not Detect) Stool Adenovirus (PCR) Not detected (Not Detect) Stool Astrovirus (PCR) Not detected (Not Detect) Stool Cryptosporidium PCR Not detected (Not Detect) Stl E.coli Shiga Tox PCR Not detected (Not Detect) St Sh/Enteroin Ecoli PCR Not detected (Not Detect) Stl Enterotoxigenic E PCR Not detected (Not Detect) Stool EPEC (PCR) Not detected (Not Detect) Stl E. histolytica PCR Not detected (Not Detect) Stool Giardia Lamblia PCR Not detected (Not Detect) Stool Sapovirus (PCR) Not detected (Not Detect) Stl P. shigelloides PCR Not detected (Not Detect) St Y.enterocolitica PCR Not detected (Not Detect) Stool Vibrio (PCR) Not detected (Not Detect) Stl Vibrio cholerae PCR Not detected (Not Detect) Stl Enteroaggr Ecoli PCR Not detected (Not Detect) Stl Norovirus GI/GII PCR Not detected (Not Detect) Campylobacter (PCR) Not detected (Not Detect) C. difficile Tox (PCR) Not detected (Not Detect) Salmonella (PCR) Not detected (Not Detect) MDM Narrative Medical decision making narrative: Patient is a 83-year-old male history of AFib on Eliquis, hypertension, hyperlipidemia, CHF, multiple myeloma comes into the ED from home via EMS for evaluation of diarrhea. Has been ongoing for 2 days, states that this started after he took laxatives due to the fact that he was constipated. He denies any actual abdominal cramping denies any nausea vomiting. Denies any bright red blood per rectum. Patient did have lab work performed here, patient without any leukocytosis, mildly elevated creatinine at 1.9, however not requiring/meeting admission for acute GIORGIO. Patient able to tolerate p.o. therefore will provide hydration via p.o. route given IV fluid conservation concern. Did send GI panel which showed no acute findings. 0422: Patient re-evaluated no new complaints at this time, informed him of his negative workup performed here in the emergency department informed him to continue to push fluids due to his persistent diarrhea. He understands, and agrees with this plan. I instructed him that he can trial loperamide in an outpatient setting, he can trial 4 mg p.o. with any additional loose stool with 2 mg after that with a max dose daily of 16 mg, however I did mention to him that this could cause constipation as well therefore to not overdo this. Patient states that the diarrhea has caused some irritation to his known hemorrhoids and therefore is requesting some ointment, we will send him home with prescription for Anusol. He verbalized strict return precautions will be safe for discharge home with outpatient follow up Discharge Plan Departure Patient Disposition: Home Clinical Impression: Diarrhea Activity Restrictions/Additional Instructions: You may trial loperamide with initial dose of 4 mg, can add additional 2 mg after each loose stool with a max of 16 mg daily. Please read the discharge instructions sheet carefully and bring all papers to all doctor follow-up visits, as it may contain information that your doctor may want to see. Disease processes change and evolve, if your symptoms worsen or if you develop any new symptoms that are concerning to you please return for evaluation. Your evaluation today does not show any evidence of any life- threatening/serious illnesses requiring admission to the hospital or surgery. Please follow-up with your doctor for re-evaluation in approximately 1 day. Seek immediate medical attention for any worrisome symptoms. Prescriptions: New hydrocortisone [Anusol-HC] 2.5 % cream with perineal applicator 1 applic [place] QD-BID PRN (Reason: hemorrhoids) Qty: 30 0RF No Action omeprazole 40 mg capsule,delayed release(DR/EC) 40 mg PO DAILY Qty: 30 0RF amiodarone 200 mg tablet 200 mg PO DAILY bupropion HCl 150 mg tablet sustained-release 12 hr 150 mg PO BID atorvastatin 20 mg tablet 20 mg PO DAILY levothyroxine 88 mcg tablet 88 mcg PO DAILY valacyclovir 500 mg tablet 500 mg PO BID escitalopram oxalate 20 mg tablet 20 mg PO DAILY Eliquis 5 mg tablet 5 mg PO BID cyclobenzaprine 10 mg Tablet 10 mg PO TID PRN (Reason: muscle spasm) Qty: 15 0RF furosemide 40 mg Tablet 80 mg PO 0800,1700 Qty: 60 0RF hydrocodone-acetaminophen 5-325 mg Tablet 1 tab PO Q4H PRN (Reason: pain) Qty: 20 0RF midodrine 5 mg Tablet 10 mg PO 0600,1200,1800 Qty: 60 0RF potassium chloride [Klor-Con M20] 20 mEq Tablet,Er Particles/Crystals 20 meq PO BIDWM Qty: 60 0RF tamsulosin [Flomax] 0.4 mg Capsule 0.4 mg PO DAILY Qty: 30 0RF tamsulosin 0.4 mg capsule 0.4 mg PO DAILY Qty: 30 0RF Referrals: Cely Hamilton MD [Primary Care Provider] - Stand Alone Forms: Patient Portal/API/Survey
[2024-04-13 02:37] VITALS: BP 148/66; PULSE 61; RESP 18; TEMP 36; O2SAT 100; BMI 20.9
[2024-04-13 02:46] LABS: Hematocrit 35.8 % (41-53); Hemoglobin 12.7 g/dL (13.5-17.5); Mean Corpuscular HGB Conc 35.6 % (30-36); Mean Corpuscular Hemoglobin 35.9 PG (26-34); Mean Corpuscular Volume 100.8 fL (80-100); Platelet Count 187 X10^3/uL (150-400); Red Blood Cell Count 3.55 X10^6/uL (4.5-5.9); Red Cell Distribution Width 13.5 % (11.6-14.8); White Blood Cell Count 10.5 X10^3/uL (4.5-11.0)
[2024-04-13 02:54] LABS: BUN Creatinine Ratio 16.5 (6-22); Blood Urea Nitrogen 32 mg/dL (9-20); Calcium 9.9 mg/dL (8.4-10.2); Carbon Dioxide 19 mmol/L (22-32); Chloride 101 mmol/L (98-107); Estimated Glomerular Filt Rate 34 mL/min (>60); Glucose 97 mg/dL (80-110); HEMOLYSIS < 15 (0-50); Magnesium 1.9 mg/dL (1.6-2.3); Potassium 4.3 mmol/L (3.4-5.1); Sodium 131 mmol/L (137-145)
[2024-04-13] MEDS: ACETAMINOPHEN 325 MG TABLET 650 MG PO (02:56)
[2024-04-13 04:13] LABS: Adenovirus F 40/41 Not Detected (Not Detect); Astrovirus Not Detected (Not Detect); Campylobacter Not Detected (Not Detect); Clostridium difficile toxin AB Not Detected (Not Detect); Cryptosporidium Not Detected (Not Detect); Cyclospora cayetanensis Not Detected (Not Detect); Entamoeba histolytica Not Detected (Not Detect); Enteroaggregative E.coli Not Detected (Not Detect); Enteropathogenic E.coli Not Detected (Not Detect); Enterotoxigenic E.coli It/st Not Detected (Not Detect); Giardia lamblia Not Detected (Not Detect); Norovirus GI/GII Not Detected (Not Detect); Plesiomonsa shigelloides Not Detected (Not Detect); Rotavirus A Not Detected (Not Detect); Salmonella Not Detected (Not Detect); Sapovirus Not Detected (Not Detect); Shiga-like toxin-prod E.coli Not Detected (Not Detect); Shigella/Enteroinvasive E.coli Not Detected (Not Detect); Vibrio Not Detected (Not Detect); Vibrio cholerae Not Detected (Not Detect); Yersinia enterocolitica Not Detected (Not Detect)
[2024-04-13 06:47] VITALS: BP 138/60; PULSE 64; RESP 18; O2SAT 100
== END 2024-04-13 07:00 | disposition home or self-care (01) ==
PROVIDERS: Emergency Provider Student in an Organized Health Care Education/Training Program; PCP Internal Medicine
DX: R19.7 Diarrhea, unspecified (principal); Z79.01 Long term (current) use of anticoagulants
CPT/HCPCS: 36415; 80048; 83735; 85027; 87507; 99283

== ENCOUNTER 2024-11-09 17:51 | Emergency (ER) | payer MEDICARE, SELFPAY ==
[2023-04-06 16:31] VITALS: BMI 27.1
[2024-11-09] VITALS (13 sets, daily range): BP systolic 94–149; BP diastolic 61–80; PULSE 55–60; RESP 12–251; TEMP 36.3; O2SAT 94–100; BMI 26.1
--- NOTE | 2024-11-09 17:57 | DI.RAD.S_ITS ---
PROCEDURE: XR CHEST 1V INDICATIONS: Chest Pain TECHNIQUE: One view of the chest was acquired. COMPARISON: [facility], CR, XR CHEST 1V, 04/06/2023, 11:08. FINDINGS: Surgical changes and devices: Left chest wall pacemaker leads are in the region of right atrium, right ventricle and left ventricle. Lungs and pleura: Lungs are clear. No pleural effusions or pneumothorax. Mediastinum: Tortuous thoracic aorta. Heart size is enlarged. Bones and chest wall: No suspicious bony lesions. Overlying soft tissues appear unremarkable. IMPRESSION: No acute cardiopulmonary pathology. Dictated by: Adolfo Mya M.D. on 11/09/2024 at 18:54 Approved by: Adolfo May M.D. on 11/09/2024 at 18:54
--- NOTE | 2024-11-09 17:57 | EKG_ITS ---
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
--- NOTE | 2024-11-09 18:18 | ED.CHESTPAIN ---
HPI - Chest Pain General Chief Complaint: Chest Pain Stated Complaint: SOB, chest pain, High BP Time Seen by Provider: 11/09/24 18:17 Source: patient Mode of arrival: Ambulatory Limitations: no limitations History of Present Illness HPI narrative: 84-year-old male with history of atrial fibrillation on Eliquis anticoagulation, history of pacemaker, takes oral amiodarone 200 mg daily, no known CAD, complains of left anterior chest pressure today, not any fast heart rate sensation, no syncope or presyncope. No diaphoresis or nausea. No pain or tingling to neck back arm legs. He has been taking his Eliquis, takes it nightly, took a dose last night. MD complaint: chest pain Related Data Home Medications ?Medication ?Instructions ?Recorded ?Confirmed amiodarone 200 mg tablet 200 mg PO DAILY 04/10/23 04/10/23 apixaban 5 mg tablet (Eliquis) 5 mg PO BID 04/10/23 04/10/23 atorvastatin 20 mg tablet 20 mg PO DAILY 04/10/23 04/10/23 bupropion HCl 150 mg tablet,12 hr 150 mg PO BID 04/10/23 04/10/23 sustained-release escitalopram oxalate 20 mg tablet 20 mg PO DAILY 04/10/23 04/10/23 levothyroxine 88 mcg tablet 88 mcg PO DAILY 04/10/23 04/10/23 valacyclovir 500 mg tablet 500 mg PO BID 04/10/23 04/10/23 Previous Rx's ?Medication ?Instructions ?Recorded omeprazole 40 mg capsule,delayed 40 mg PO DAILY #30 caps 03/17/23 release cyclobenzaprine 10 mg tablet 10 mg PO TID PRN muscle spasm #15 04/10/23 tabs furosemide 40 mg tablet 80 mg (2 x 40 mg) PO 0800,1700 #60 04/10/23 tabs hydrocodone 5 mg-acetaminophen 325 1 tab PO Q4H PRN pain #20 tabs 04/10/23 mg tablet midodrine 5 mg tablet 10 mg (2 x 5 mg) PO 0600,1200,1800 04/10/23 #60 tabs potassium chloride 20 mEq 20 meq PO BIDWM #60 tabs 04/10/23 tablet,extended release(part/cryst) (Klor-Con M) tamsulosin 0.4 mg capsule 0.4 mg PO DAILY #30 caps 04/10/23 tamsulosin 0.4 mg capsule (Flomax) 0.4 mg PO DAILY #30 caps 04/10/23 hydrocortisone 2.5 % topical cream 1 applic MD QD-BID PRN hemorrhoids 04/13/24 with perineal applicator #30 grams (Anusol-HC) metoprolol succinate 25 mg 25 mg PO DAILY #30 tabs 11/09/24 tablet,extended release 24 hr Allergies Allergy/AdvReac Type Severity Reaction Status Date / Time Sulfa (Sulfonamide Allergy Severe HIVES, Verified 04/06/23 10:54 Antibiotics) BREATHING PROBLEMS prednisone Allergy Unknown UNKNOWN Verified 04/06/23 10:54 Patient History Medical History Hypothyroidism (acquired) BPH (benign prostatic hyperplasia) Pacemaker Atrial fibrillation Hyperlipidemia Social History household members: children alcohol intake: current alcohol intake frequency: a few times a week Alcohol type: beer Exam Narrative Exam Narrative: GENERAL: Well-developed patient, in mild distress. HEAD: Atraumatic. Normocephalic. EYES: Pupils equal round and reactive. Extraocular motions intact. No scleral icterus. No injection or drainage. ENT: Nose without bleeding, purulent drainage. Throat without erythema, tonsillar hypertrophy or exudate. Airway patent. NECK: Trachea midline. Non tender CARDIOVASCULAR: Fast rate, not obviously irregular rhythm, without obvious murmurs, gallops, or rubs. RESPIRATORY: Clear to auscultation. Breath sounds equal bilaterally. No wheezes, rales, or rhonchi. Left upper anterior chest pacemaker, site palpable, no redness or tenderness or crepitance or fluctuance. GASTROINTESTINAL: Abdomen soft, non-tender, nondistended. EXTREMITIES: No edema or joint tenderness. BACK: Nontender without deformity or crepitance. No flank tenderness. NEURO: AOx3. Motor functions grossly nonfocal. SKIN: No rash or erythema of visible areas Initial Vital Signs Initial Vital Signs: Vital Signs Temperature 97.4 F L 11/09/24 17:58 Pulse Rate 55 L 11/09/24 17:58 Respiratory Rate 18 11/09/24 17:58 Blood Pressure 94/68 11/09/24 17:58 Pulse Oximetry 95 11/09/24 17:58 Oxygen Delivery Method Room Air 11/09/24 17:58 Procedures Cardioversion Time of Cardioversion: 18:15 Indication: Chest pain, wide complex tachycardia Number of attempts (shocks): 1 Joules used: 200 Cardiac rhythm post-cardioversion: Paced rhythm av pacer noted, heart rate 80-110 varied. Notice:: See sedation separate note. Procedural Sedation Time of procedure: 18:30 Consent signed: No Time out performed: Yes Indication: cardioversion Presedation Evaluation: Chest pain with wide complex tachycardia, gave verbal order for emergent cardioversion, last meal 10:00 a.m. Mallampati Airway Classification: Class II Preparation: pulse oximeter, capnometry used, supplemental O2 applied, suction/airway equipment at bedside and IV secured IV Etomidate dose (mg): 10 ED Sedation Level: Moderate (Concious) Complications: Respiratory Depression-Repositioning Required Interventions: Airway repositioned and Assist by BVM Additional Comments: Patient had successful cardioversion with single shock after IV slow push etomidate, subsequently had desaturations responsive to jaw thrust maneuver, then had emesis of food, placed right lateral decubitus rescue position, oropharyngeal suctioning. Brief transient low sat responsive to airway suctioning and BVM. Chest x-ray without obvious aspiration. Course Orders Ordered: Discontinued Medications Acetaminophen (Acetaminophen 325 Mg Tablet) 650 mg PO NOW ONE Stop: 11/09/24 20:14 Last Admin: 11/09/24 20:40 Dose: 650 mg Documented By: JAYSON Aspirin (Aspirin 81 Mg Chew Tab) 324 mg PO NOW ONE Stop: 11/09/24 17:58 Last Admin: 11/09/24 18:48 Dose: 324 mg Documented By: JAYSON Diphenhydramine HCl (Diphenhydramine 50 Mg/Ml Vial) 25 mg IV NOW ONE Stop: 11/09/24 20:14 Last Admin: 11/09/24 20:41 Dose: 25 mg Documented By: JAYSON Etomidate (Etomidate 2 Mg/Ml 10 Ml Vial) 10 mg IV NOW ONE Stop: 11/09/24 18:18 Last Admin: 11/09/24 18:24 Dose: 10 mg Documented By: JAYSON Sodium Chloride (Normal Saline 0.9%) 1,000 mls @ 500 mls/hr IV BOLUS ONE Stop: 11/09/24 20:40 Last Infusion: 11/09/24 20:59 Dose: Infused Documented By: Admin: 11/09/24 18:49 Dose: 500 mls/hr Documented By: JAYSON Amiodarone HCl/Dextrose (Nexterone) 150 mg in 100 mls @ 600 mls/hr IV NOW ONE; Protocol Stop: 11/09/24 18:50 Last Infusion: 11/09/24 20:15 Dose: Infused Documented By: Admin: 11/09/24 18:53 Dose: 600 mls/hr Documented By: JAYSON Amiodarone HCl/Dextrose (Nexterone) 360 mg in 200 mls @ 33.333 mls/hr IV NOW ONE; Protocol Stop: 11/10/24 00:59 Last Admin: 11/09/24 19:20 Dose: Not Given Documented By: JAYSON Amiodarone HCl/Dextrose (Nexterone) 360 mg in 200 mls @ 16.7 mls/hr IV CONT IGNACIO; Protocol Stop: 11/10/24 12:59 Last Admin: 11/10/24 01:00 Dose: Not Given Documented By: MINERVA Amiodarone HCl/Dextrose (Nexterone) 180 mg in 100 mls @ 16.7 mls/hr IV CONT IGNACIO; Protocol Stop: 11/10/24 19:00 Clindamycin Phosphate (Cleocin) 900 mg in 50 mls @ 50 mls/hr IV NOW ONE Stop: 11/09/24 20:22 Last Infusion: 11/09/24 21:33 Dose: Infused Documented By: Admin: 11/09/24 20:17 Dose: 50 mls/hr Documented By: DEANNE Metoclopramide HCl (Metoclopramide 10 Mg/2 Ml Inj) 10 mg IV NOW ONE Stop: 11/09/24 20:14 Last Admin: 11/09/24 20:41 Dose: 10 mg Documented By: JAYSON Ondansetron HCl (Ondansetron 4 Mg Odt) 4 mg SL NOW ONE Stop: 11/09/24 18:45 Last Admin: 11/09/24 18:48 Dose: 4 mg Documented By: JAYSON Vital Signs Vital signs: Vital Signs - 8 hr 11/09/24 20:30 11/09/24 20:30 11/09/24 21:00 Pulse Rate 60 Respiratory Rate Blood Pressure 145/67 H 138/65 Pulse Oximetry 99 Oxygen Delivery Method 11/09/24 21:00 11/09/24 21:30 11/09/24 21:30 Pulse Rate 60 60 Respiratory Rate 12 16 Blood Pressure 129/61 Pulse Oximetry 99 95 Oxygen Delivery Method Room Air 11/09/24 22:00 11/09/24 22:00 11/09/24 22:30 Pulse Rate 60 Respiratory Rate 15 Blood Pressure 141/67 H 144/66 H Pulse Oximetry 96 Oxygen Delivery Method 11/09/24 22:30 11/09/24 23:00 11/09/24 23:00 Pulse Rate 60 60 Respiratory Rate 19 251 H Blood Pressure 130/62 Pulse Oximetry 96 94 Oxygen Delivery Method 11/09/24 23:30 11/09/24 23:30 Pulse Rate 60 Respiratory Rate 16 Blood Pressure 140/66 Pulse Oximetry 98 Oxygen Delivery Method Room Air MDM - Chest Pain Lab Data 11/09/24 18:20 11/09/24 18:20 Labs: Lab Results 11/09/24 11/09/24 Range/Units 18:20 21:29 WBC 7.6 (4.5-11.0) X10^3/uL RBC 4.11 L (4.5-5.9) X10^6/uL Hgb 13.9 (13.5-17.5) g/dL Hct 40.8 L (41-53) % MCV 99.4 (80-100) fL MCH 33.9 (26-34) PG MCHC 34.1 (30-36) % RDW 13.6 (11.6-14.8) % Plt Count 210 (150-400) X10^3/uL Neut % (Auto) 63.5 (50-75) % Lymph % (Auto) 22.1 L (25-40) % [place] % (Auto) 9.0 (3-14) % Eos % (Auto) 4.6 H (2-4) % Baso % (Auto) 0.8 (0-2) % Neut # (Auto) 4900 (2848-2647) /uL Lymph # (Auto) 1700 (9148-9349) /uL [place] # (Auto) 700 (0-900) /uL Eos # (Auto) 300 (0-450) /uL Baso # (Auto) 100 (0-100) /uL PT 10.8 (9.4-12.5) SECONDS INR 1.0 (0.9-1.3) APTT 35 (25.1-36.5) SECONDS Sodium 140 (137-145) mmol/L Potassium 4.6 (3.4-5.1) mmol/L Chloride 108 H (98-107) mmol/L Carbon Dioxide 24 (22-32) mmol/L BUN 24 H (9-20) mg/dL Creatinine 1.27 H (0.66-1.25) mg/dL Estimated GFR 56 L (>60) mL/min BUN/Creatinine Ratio 18.9 (6-22) Glucose 141 H (70-99) mg/dL Calcium 9.7 (8.4-10.2) mg/dL Magnesium 1.9 (1.6-2.3) mg/dL Total Bilirubin 0.6 (0.2-1.3) mg/dL AST 29 (17-59) IU/L ALT 18 (<50) IU/L Alkaline Phosphatase 75 (38-126) U/L Total Creatine Kinase 132 (55-170) U/L Troponin I < 0.012 0.028 (0.01-0.034) ng/mL NT-Pro-B Natriuret Pep 524 H (<450) pg/mL Total Protein 7.0 (6.3-8.2) g/dL Albumin 4.7 (3.5-5.0) g/dL Globulin 2.3 (1.7-4.1) g/dL Albumin/Globulin Ratio 2.0 (1.0-2.8) Lipase 231 (23-300) U/L Imaging Data Chest x-ray: Radiologist's Impression: [address] [address] XRay Report Signed Patient: Dameon Coulter MR#: [id number] : 1940 Acct:[id number] Age/Sex: 84 / M Date of Service: 11/09/24 Loc: ED Accession Number: [id number] Procedure: XR chest 1V Ordering Provider: Jacobo Mart MD PROCEDURE: XR CHEST 1V INDICATIONS: Chest Pain TECHNIQUE: One view of the chest was acquired. COMPARISON: [facility], [facility], XR CHEST 1V, 04/06/2023, 11:08. FINDINGS: Surgical changes and devices: Left chest wall pacemaker leads are in the region of right atrium, right ventricle and left ventricle. Lungs and pleura: Lungs are clear. No pleural effusions or pneumothorax. Mediastinum: Tortuous thoracic aorta. Heart size is enlarged. Bones and chest wall: No suspicious bony lesions. Overlying soft tissues appear unremarkable. IMPRESSION: No acute cardiopulmonary pathology. Dictated by: Adolfo May M.D. on 11/09/2024 at 18:54 Approved by: Adolfo May M.D. on 11/09/2024 at 18:54 ECG Data Attestation: I personally reviewed and interpreted this ECG as follows: Interpretation: 1806, wide complex tachycardia with rate 153. 1832, status post cardioversion, has AV dual paced rhythm with prolonged AV conduction. Biventricular pacemaker noted. MDM Narrative Medical decision making narrative: 84-year-old male with history of atrial fibrillation on Eliquis chronic anticoagulation with left anterior chest pain, has wide complex tachycardia 160, left anterior chest pressure. Suspect AFib RVR with underlying bundle or rate related bundle. Otherwise unstable in context of chest pain, normotensive. Verbal consent for cardioversion. See procedure note. Had cardioversion 200 joules synchronized x1 shock, converted from wide complex tachycardia to AV paced appearing rhythm, however also had emesis shortly after cardioversion, placed right lateral rescue position with oropharyngeal suctioning, food debris removed manually and suctioned from oropharynx. Chest x-ray still pending. IV Clindamycin for aspiration coverage. Recovered his mental status, seems to be maintaining airway, no advanced airway interventions at this time. Pacer interrogation requested. Amiodarone IV bolus 150 mg then infusion. Heart rate decreased on amiodarone, takes oral amiodarone. We will stop infusion. Pacer interrogation to be performed. Chest x-ray no acute changes. No aspiration changes. See radiology report. Initial troponin negative. We will repeat interval troponin. Records review. Most recent available echocardiogram dated 04/07/2023. Sinus rhythm with wide QRS complexes. Mildly dilated LV size and normal wall thickness. Severe global hypokinesis with ejection fraction EF 20-25%. EPSS is 2.7 consistent with cardiomyopathy. Bilateral atrial enlargement. Mild aortic regurgitation in the setting of moderately dilated root measuring 4.6 cm diameter. Severe eccentric posterolaterally directed mitral regurgitation with pulmonary vein flow reversal. Moderate central tricuspid regurgitation in setting of a pacing lead traversing the tricuspid valve. PA systolic pressure estimated at 32 mmHg. Moderate left pleural effusion. Read by research worker encyclopedia Dr. Ash. 2100, call back from [facility] regarding pacemaker interrogation results, [employer] device including AICD with shock threshold 170 beats per minute. 5.8 years battery life left. SVT today onset 5:16 p.m. rate max 150s, did not reach 170 threshold for shock cardioversion. Occasional VT episodes as well. No mention atrial fibrillation. No further chest pain after recovery from cardioversion. AV paced rhythm confirmed on repeat EKG. We will contact Cardiology for further recommendations, amiodarone noted on medication list, no beta-blockers or calcium channel blockers on medication list. Repeat troponin 0.028, low. Await call back from cardiology Dr. Jones. Still no further chest pain. 233, case discussed with cardiology Dr. Ross, advises increased dose of amiodarone from 200-400 mg daily, and addition of metoprolol 25 mg long-acting once daily. Follow up as cardiologists advised. Continue Eliquis and other chronic medications. Discharge Plan Departure Patient Disposition: Home Clinical Impression: Chest pain, Tachycardia, History of atrial fibrillation Activity Restrictions/Additional Instructions: History of atrial fibrillation, history of congestive heart failure, history of cardiomyopathy, AICD pacemaker. Chest pain pressure symptoms with initial very fast heart rate, no shocking sensation from your AICD pacer device. Very fast heart rate with chest pain, unstable tachycardia. We used IV sedation medication, then you had a single shock that brought you out of the fast wide complex tachycardia. Subsequently you seemed to have a paced rhythm, in normal range rate. Electrolytes unremarkable. You had some vomiting after the procedure, we rolled you to the side and suctioned dry mouth. Chest x-ray unremarkable. No obvious aspiration pneumonia type changes on the chest x-ray. You recovered and had no residual chest pain after the fast heart rate was terminated. Case discussed with cardiology Dr. Ross on-call, who suggested increased dose of your amiodarone from 200 mg tablet 1 tablet daily to 2 tablets daily (200 mg daily dose to 400 mg daily dose). You stated that you had a supply of your amiodarone. She also suggested addition of metoprolol long-acting low dose, metoprolol succinate 25 mg sent to your pharmacy. Continue taking your Eliquis on your other chronic medications. Follow up with your research worker encyclopedia advised later this week. Return earlier to this/nearest emergency department for any change worsening symptoms or any concerns prior. Prescriptions: New metoprolol succinate 25 mg tablet extended release 24 hr 25 mg PO DAILY Qty: 30 0RF No Action omeprazole 40 mg capsule,delayed release(DR/EC) 40 mg PO DAILY Qty: 30 0RF hydrocortisone [Anusol-HC] 2.5 % cream with perineal applicator 1 applic MD QD-BID PRN (Reason: hemorrhoids) Qty: 30 0RF amiodarone 200 mg tablet 200 mg PO DAILY bupropion HCl 150 mg tablet sustained-release 12 hr 150 mg PO BID atorvastatin 20 mg tablet 20 mg PO DAILY levothyroxine 88 mcg tablet 88 mcg PO DAILY valacyclovir 500 mg tablet 500 mg PO BID escitalopram oxalate 20 mg tablet 20 mg PO DAILY Eliquis 5 mg tablet 5 mg PO BID cyclobenzaprine 10 mg Tablet 10 mg PO TID PRN (Reason: muscle spasm) Qty: 15 0RF furosemide 40 mg Tablet 80 mg PO 0800,1700 Qty: 60 0RF hydrocodone-acetaminophen 5-325 mg Tablet 1 tab PO Q4H PRN (Reason: pain) Qty: 20 0RF midodrine 5 mg Tablet 10 mg PO 0600,1200,1800 Qty: 60 0RF potassium chloride [Klor-Con M20] 20 mEq Tablet,Er Particles/Crystals 20 meq PO BIDWM Qty: 60 0RF tamsulosin [Flomax] 0.4 mg Capsule 0.4 mg PO DAILY Qty: 30 0RF tamsulosin 0.4 mg capsule 0.4 mg PO DAILY Qty: 30 0RF Referrals: Karthik Reina MD [Physician, Cardiology] Cely Hamilton MD [Primary Care Provider, Internal Medicine] Stand Alone Forms: Patient Portal/API
[2024-11-09] MEDS: ETOMIDATE 2 MG/ML 10 ML VIAL 10 MG IV (18:24)
[2024-11-09 18:29] LABS: Add Manual Diff / Slide Review NO; Basophils Absolute Auto 100 /uL (0-100); Basophils Percent Auto 0.8 % (0-2); Eosinophils Absolute Auto 300 /uL (0-450); Eosinophils Percent Auto 4.6 % (2-4); Hematocrit 40.8 % (41-53); Hemoglobin 13.9 g/dL (13.5-17.5); Lymphocytes Absolute Auto 1700 /uL (1100-4500); Lymphocytes Percent Auto 22.1 % (25-40); Mean Corpuscular HGB Conc 34.1 % (30-36); Mean Corpuscular Hemoglobin 33.9 PG (26-34); Mean Corpuscular Volume 99.4 fL (80-100); Monocytes Absolute Auto 700 /uL (0-900); Neutrophils Absolute Auto 4900 /uL (1500-7000); Neutrophils Percent Auto 63.5 % (50-75); Platelet Count 210 X10^3/uL (150-400); Red Blood Cell Count 4.11 X10^6/uL (4.5-5.9); Red Cell Distribution Width 13.6 % (11.6-14.8); White Blood Cell Count 7.6 X10^3/uL (4.5-11.0)
--- NOTE | 2024-11-09 18:32 | EKG_ITS ---
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
[2024-11-09 18:38] LABS: Prothrombin Time 10.8 SECONDS (9.4-12.5)
[2024-11-09 18:40] LABS: PTT Partial Thromboplastin Tim 35 SECONDS (25.1-36.5)
[2024-11-09 18:43] LABS: Alanine Aminotransferase 18 IU/L (<50); Albumin 4.7 g/dL (3.5-5.0); Alkaline Phosphatase 75 U/L (38-126); Aspartate Aminotransferase 29 IU/L (17-59); BUN Creatinine Ratio 18.9 (6-22); Bilirubin Total 0.6 mg/dL (0.2-1.3); Blood Urea Nitrogen 24 mg/dL (9-20); Calcium 9.7 mg/dL (8.4-10.2); Carbon Dioxide 24 mmol/L (22-32); Chloride 108 mmol/L (98-107); Creatine Kinase 132 U/L (55-170); Estimated Glomerular Filt Rate 56 mL/min (>60); Globulin 2.3 g/dL (1.7-4.1); Glucose 141 mg/dL (70-99); HEMOLYSIS 25 (0-50); Lipase 231 U/L (23-300); Magnesium 1.9 mg/dL (1.6-2.3); Potassium 4.6 mmol/L (3.4-5.1); Sodium 140 mmol/L (137-145)
[2024-11-09] MEDS: ONDANSETRON 4 MG ODT SL (18:48)
[2024-11-09] MEDS: ASPIRIN 81 MG CHEW TAB 324 MG PO (18:48)
[2024-11-09] MEDS: SODIUM CHLORIDE 0.9% 1,000 ML 500 ML IV (18:49)
[2024-11-09] MEDS: AMIODARONE 150 MG/100 ML PIGGYBACK 600 MG IV (18:53)
[2024-11-09 18:54] LABS: NT-proBNP (BNP-Adult 18+) 524 pg/mL (<450); Troponin I < 0.012 ng/mL (0.01-0.034)
--- NOTE | 2024-11-09 19:58 | PC.NURSE ---
Pt presented to ED with chest pain, diaphoriesis and hr 150s with wide complex. to room for EKG, monitor, and IV. Provider to bedside and reported urgent need for conversion. RT to bedside for airway management, Vital signs monitored with capinography 4L via NC. Pads placed on patient. MD administered 10mg AtomidatE. WHEN PATIENT Unarousable shock 200j delivered by Sammy RN. Cardioversion to Sinus bradycardia rate of 60's. Pt vomited and immediately turned to side and airway suctioned. when airway clear, BVM assisted ventilations by R2 for sat of 84%. Desaturation less than 30 seconds and pt returned to 96-100%. Blood pressures remained stable. (Due to equipment malfunction, vital signs unable to be downloaded or found to print. This RN ensured continious monitoring with MD, RT, and RN for duration of procedure.) Pt reports pain has resolved and feeling well. intermittent nausea continues to be monitored and treated.
[2024-11-09] MEDS: CLINDAMYCIN 900 MG/50 ML PIGGYBACK 50 MG IV (20:17)
[2024-11-09] MEDS: ACETAMINOPHEN 325 MG TABLET 650 MG PO (20:40)
[2024-11-09] MEDS: METOCLOPRAMIDE 10 MG/2 ML INJ IV (20:41)
[2024-11-09] MEDS: diphenhydrAMINE 50 MG/ML VIAL 25 MG IV (20:41)
--- NOTE | 2024-11-09 21:04 | PC.NURSE ---
This RN interrogated pacemaker, it is [employer],provider Abdirashid talking with pacemaker rep
[2024-11-09 22:02] LABS: Troponin I 0.028 ng/mL (0.01-0.034)
[2024-11-10] VITALS: BP 119/64; PULSE 60; RESP 17; O2SAT 98
--- NOTE | 2024-11-10 00:19 | PC.NURSE ---
This pt ready fro DC. THis nurse sees etomidate given at 1824. Pt still woozy when standing or trying to walk. Spoke with dry charge process attendant, pt unsafe to drive home. Has no other ride. Will stay here until deemed safe or other ride can get here.
[2024-11-10 06:13] VITALS: PULSE 60; O2SAT 99
[2024-11-10 06:14] VITALS: BP 125/63; RESP 17; O2SAT 98
== END 2024-11-10 06:25 | disposition home or self-care (01) ==
PROVIDERS: Emergency Medicine; Emergency Provider Emergency Medicine; PCP Internal Medicine
DX: R07.9 Chest pain, unspecified (principal); R00.0 Tachycardia, unspecified; I48.91 Unspecified atrial fibrillation; Z79.01 Long term (current) use of anticoagulants; Z95.0 Presence of cardiac pacemaker
CPT/HCPCS: 36415; 71045; 80053; 82550; 83690; 83735; 83880; 84484; 85025; 85610; 85730; 87040; 92960; 93005; 96365; 96367; 96375; 99152; 99285; J0282; J1200; J2765